=== PATIENT | male | born 1970 | race Caucasian/White ===

== ENCOUNTER 2019-08-05 14:08 | Outpatient (RCR) | payer OTHER, SELFPAY ==
--- NOTE | 2019-08-05 16:06 | OTOPEVAL ---
Thank you for referring this patient to [facility]. Please review, sign, date and return this plan of care [facility]. I agree with and certify that the following plan of care is medically necessary. Referring Physician Date Admitting Provider: Attending Provider: Melquiades Hauser, Referring Provider: *OT Outpatient Evaluation Start: 08/05/19 14:09 Freq: Status: Active Protocol: Document 08/05/19 14:09 [facility] (Rec: 08/05/19 15:03 [id number] Therapy Assessment Status Assessment Status Assessment Status Evaluation Outpatient Past Medical History Cardiovascular History Hx Cardiomyopathy Yes Gastrointestinal History Hx Gastroesophageal Reflux Disease Yes Musculoskeletal History Hx Other Musculoskeletal Disorders Yes: arthritis Evaluation Information Problem Diagnosis R thumb pain Onset 07/21/19 Subjective Information Patient reports a history of Query Text:As Reported By Patient/ carpal tunnel in the R hand. 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 Approximately 3 weeks ago, patient reports that a box fell on his extended thumb while working at [employer]. Patient reports that he has an orthosis for his R thumb that he wears intermittently as well as copper infused compression gloves. Patient reports that R thumb pain is impacting his ability to put clothes on, tie his shoes, taking a shower, opening containers, etc. Patient reports numbness in his L fingers as well. Patient reports the following throughout evaluation: I dont know how much more I can take . I have a lot of problems including some legal problems. I need a medical detox. Patient's dr is called and notified. Diagnostic Tests X-Rays For This Problem Yes Prior Level of Function Activity Level (Last 3 Months) Hand Dominance Ambidextrous Activity of Daily Living Ability Independent Indoor/Home Mobility Independent Community Mobility Independent
== END 2019-09-10 10:33 | disposition home or self-care (01) ==
LOC: CHSOT 14:08
PROVIDERS: PCP Internal Medicine; Visit Provider Internal Medicine
DX: M79.644 Pain in right finger(s) (principal)
CPT/HCPCS: 97035; 97110; 97140; 97165

== ENCOUNTER 2019-08-05 15:30 | Emergency (ER) | payer OTHER, SELFPAY ==
--- NOTE | 2019-08-05 15:44 | PC.NURSE ---
Pt requesting to go down to vending machines because he is hungry.
--- NOTE | 2019-08-05 15:58 | PC.NURSE ---
Pt had walked down to vending machines and has not yet returned.
[2019-08-05 16:09] VITALS: BP 108/79; PULSE 90; RESP 16; TEMP 36.3; O2SAT 100
[2019-08-05] MEDS: KETOROLAC (*BKC) 60 MG/2 ML VIAL IM (17:01)
--- NOTE | 2019-08-05 17:01 | ED.GENADULT ---
HPI - General Adult General Chief complaint: Nausea/Vomiting/Diarrhea Stated complaint: diarrhea Time Seen by Provider: 08/05/19 16:20 Source: patient Mode of arrival: ambulatory Limitations: no limitations History of Present Illness HPI narrative: Taye is a 48-year-old male patient. He presents ambulatory to the emergency room. He states that last Monday he had some nausea and vomiting. The last time he threw up was early Monday morning. He has not had any vomiting since then. He had Fedder 1 loose stool this morning. He has not been on any antibiotics recently. He has no history of recent travel. Another complaint is chronic pain in the right thumb for which he is receiving physical therapy. This is apparently a trigger thumb. Adalid has history of arthritis. He also says he has carpal tunnel in the left hand. He states that he has history of some heart problems and hypertension. Apparently he had been on metoprolol but not anymore. He has history of anxiety and depression. He has been hospitalized once for this problem. He states that that he has not been able to work since Monday and needs a note for work. His family physician is in [place] but he is trying to find a family physician locally. Adalid denies any abdominal pain. She denies any chest pain. He denies any shortness of breath at this time. No cough or fever. Onset (ago): day(s) ( Three days) Location: upper extremity ( chronic pain in right thumb, see HPI narrative.) Radiation: non-radiation Severity: moderate Quality: sharp Pain Consistency: intermittent Relieving factors: other ( Physical therapy helped some) Exacerbating factors: movement Associated symptoms: other ( please see HPI narrative) Treatments prior to arrival: none Related Data Home Medications Medication Instructions Recorded Confirmed baclofen 10 mg PO TID 08/05/19 08/05/19 gabapentin 300 mg PO TID 08/05/19 08/05/19 losartan 25 mg PO DAILY 08/05/19 08/05/19 metoprolol succinate 25 mg PO DAILY 08/05/19 08/05/19 pantoprazole 20 mg PO DAILY 08/05/19 08/05/19 spironolactone 25 mg PO EVERY OTHER DAY 08/05/19 08/05/19 Allergies Allergy/AdvReac Type Severity Reaction Status Date / Time Penicillins Allergy Unknown Unknown Verified 10/30/18 10:32 Review of Systems Review of Systems: All systems reviewed & are unremarkable except as noted in HPI and below Constitutional: Constitutional: Reports as per HPI, Reports no additional constitutional complaints, Denies chills and Denies fever(s) Eyes: Eyes: Reports as per HPI, Reports no additional eye complaints and Denies change in vision ENT: Reports system reviewed and no additional complaints, except as documented, Reports as per HPI, Denies vertigo, Denies dizziness, Denies nasal congestion and Denies sore throat Cardiovascular: Cardiovascular: Reports as per HPI, Reports no additional cardiovascular complaints, Denies chest pain and Denies radiating jaw, neck or arm pain Comments: see HPI narrative Respiratory: Respiratory: Reports as per HPI, Reports no additional respiratory complaints, Denies cough and Denies dyspnea Gastrointestinal: Gastrointestinal: Reports as per HPI, Reports no additional gastrointestinal complaints, Denies abdominal pain, Denies diarrhea and Denies vomiting Genitourinary: Genitourinary: Reports no additional male genitourinary complaints, Reports as per HPI, Denies hematuria and Denies dysuria Musculoskeletal: Musculoskeletal: Reports no additional musculoskeletal complaints and Reports as per HPI Comments: chronic pain right thumb for which he is undergoing physical therapy at this time Integumentary/Breasts: Skin/Breast: Reports system reviewed and no additional complaints, except as docu, Denies erythema and Denies rash Neurologic: Reports system reviewed and no additional complaints, except as documented, Denies vertigo, Denies dizziness, Denies syncope, Denies focal weakness, Denies numbness and De
== END 2019-08-05 17:34 | disposition home or self-care (01) ==
LOC: CHSED 15:38
PROVIDERS: Emergency Provider Surgery
DX: K52.9 Noninfective gastroenteritis and colitis, unspecified (principal); M79.644 Pain in right finger(s)
CPT/HCPCS: 96372; 99282; 99283; J1885

== ENCOUNTER 2019-08-15 16:48 | Emergency (ER) | payer OTHER, SELFPAY ==
[2019-08-15 16:57] VITALS: BP 108/67; PULSE 90; RESP 20; TEMP 36.7; O2SAT 100
--- NOTE | 2019-08-15 17:11 | ED.EXTPRO ---
HPI - Extremity Problem General Chief complaint: Extremity Problem,Nontraumatic Stated complaint: Pain in R Hand Source: patient Limitations: no limitations History of Present Illness HPI Narrative: this is a 49-year-old gentleman that presents with right thumb pain with no injuries has been going on for the last 2 weeks did hyper extend his his right thumb approximately 2 weeks ago did not take any medication. Currently has some mild discomfort that he rates about a 5/10 with no radiation of his pain. MD Complaint: extremity pain Onset (ago): week(s) Pain Consistency: intermittent Location: right and other ( Thumb) Severity scale (1-10): 5 Quality: aching Radiation: none Relieving factors: nothing Exacerbating factors: nothing Associated symptoms: denies other symptoms Related Data Home Medications Medication Instructions Recorded Confirmed baclofen 10 mg PO TID 08/05/19 08/15/19 gabapentin 300 mg PO TID 08/05/19 08/15/19 losartan 25 mg PO DAILY 08/05/19 08/15/19 metoprolol succinate 25 mg PO DAILY 08/05/19 08/15/19 pantoprazole 20 mg PO DAILY 08/05/19 08/15/19 spironolactone 25 mg PO EVERY OTHER DAY 08/05/19 08/15/19 Allergies Allergy/AdvReac Type Severity Reaction Status Date / Time Penicillins Allergy Unknown Unknown Verified 10/30/18 10:32 Review of Systems Review of Systems: All systems reviewed & are unremarkable except as noted in HPI and below PMFSH Past Medical History Medical History Anxiety Carpal tunnel syndrome Depression Femur fracture Femur fracture, right Hypertension Trigger thumb Social History Social History Years smoked: 30 Smoking status: Current every day smoker Substance use type: does not use Gender identity (if verbalized by the patient): Male Exam Const: General: no acute distress and alert Orientation/consciousness: patient oriented x3 HENMT: Head: normal to inspection Eyes: Conjunctivae: conjunctivae normal Pupils: Equal, round and reactive pupils present Neck: Neck: normal visual inspection Chest: Chest palpation & inspection: normal inspection of the chest Resp: Effort & Inspection: normal respiratory effort Cardio: Rate: regular rate Rhythm: regular rhythm GI: GI Palp: Yes Soft to palpation Back/Spine/Pelvis: Back: no CVA tenderness Skin: General skin exam: normal color Rashes: no rashes Extrem: Other: Right thumb tender with palpation and movement at the base with no redness no known injury has a strong right brisk radial pulse Course Vital Signs Vital signs: Vital Signs Temperature 36.7 C 08/15/19 16:57 Pulse Rate 90 08/15/19 16:57 Respiratory Rate 20 08/15/19 16:57 Blood Pressure 108/67 08/15/19 16:57 Pulse Oximetry 100 08/15/19 16:57 Temperature 36.7 C 08/15/19 16:57 Pulse Rate 90 08/15/19 16:57 Respiratory Rate 20 08/15/19 16:57 Blood Pressure 108/67 08/15/19 16:57 Pulse Oximetry 100 08/15/19 16:57 Critical Care Time Critical Care Time Critical Care Time: No Discharge Plan Discharge Clinical Impression: Osteoarthritis of right thumb Patient Disposition: Home, Self-Care Condition: Stable Instructions: Antibiotic Form, Osteoarthritis (ED) Prescriptions: New naproxen 500 mg tablet 500 mg PO BID Qty: 14 RF: 0 No Action spironolactone 25 mg tablet 25 mg PO EVERY OTHER DAY RF: 0 pantoprazole 20 mg tablet,delayed release (DR/EC) 20 mg PO DAILY RF: 0 baclofen 10 mg tablet 10 mg PO TID RF: 0 losartan 25 mg tablet 25 mg PO DAILY RF: 0 gabapentin 300 mg capsule 300 mg PO TID RF: 0 metoprolol succinate 25 mg tablet extended release 24 hr 25 mg PO DAILY RF: 0 Follow-up/Referrals: PHYSICIAN NOT ON STAFF,NONSTAFF [Primary Care Provider] - Time of Disposition: 17:15
[2019-08-15] MEDS: KETOROLAC (*BKC) 60 MG/2 ML VIAL IM (17:15)
[2019-08-15 17:25] VITALS: RESP 20
--- NOTE | 2019-08-15 17:25 | PC.NURSE ---
Pt states he will be coming into the ER once a week to get a Toradol injection to help with his pain. Explained to pt that he needed to contact his PMD for continued chronic R thumb and not to misuse ER.
== END 2019-08-15 17:25 | disposition home or self-care (01) ==
PROVIDERS: Emergency Provider Emergency Medicine
DX: M18.9 Osteoarthritis of first carpometacarpal joint, unspecified (principal)
CPT/HCPCS: 96372; 99283; J1885

== ENCOUNTER 2019-10-05 13:55 | Outpatient (CLI) | payer OTHER, SELFPAY ==
[2019-10-05 14:11] LABS: Hematocrit 46.8 % (42.0-52.0); Hemoglobin 15.9 g/dL (14.0-18.0); Mean Corpuscular Hemoglobin 31.5 pg (26-34); Mean Corpuscular Volume 92.7 fl (80-100); Mean Platelet Volume 9.3 fl (7.4-10.4); Platelet Count Result 194 k/mm3 (150-375); Red Blood Count 5.05 M/mm3 (4.6-6.20); White Blood Count 6.4 K/mm3 (4.5-10.0)
[2019-10-05 14:28] LABS: CRP < 0.5 mg/dL (<1.0); Rheumatoid Factor < 8.6 IU/ML (<12)
[2019-10-05 14:49] LABS: Erythrocyte Sedimentation Rate 13 mm/hr (0-20)
[2019-10-10 10:43] LABS: Anti Cyclic Citrullinated Pept <16 Units (<20)
== END 2019-10-05 13:56 | disposition home or self-care (01) ==
LOC: ANHLAB 13:57
PROVIDERS: Visit Provider Orthopaedic Surgery
DX: M79.641 Pain in right hand (principal)
CPT/HCPCS: 36415; 85027; 85652; 86038; 86140; 86200; 86430

== ENCOUNTER 2019-10-28 03:08 | Emergency (ER) | payer OTHER, SELFPAY ==
[2019-10-28 03:08] VITALS: BP 100/64; PULSE 86; RESP 18; TEMP 36.2; O2SAT 97
--- NOTE | 2019-10-28 04:12 | ED.EXTPRO ---
HPI - Extremity Problem General Source: patient Mode of arrival: ambulatory History of Present Illness HPI Narrative: 49 y.o. with hx of degenertive arthritis of his hands. Yesterday he began having a sharp pain and swelling at the base of his right dorsal 1st metacarpal. Icing the area resulted in the swelling resolving but moderate pain persists, becoming more severe when he moves the thumb, especially flexion and abduction. He has been working on his bicycle in the last few days. He states he first started having thumb pain about 6 months ago when he was carrying a heavy rock which rolled back, hyperextending his thumb. He saw a hand surgeon about 3 weeks ago. At that time his pain was in the thenar eminence. An X ray of the hand was done at that time. Taye states he was told to continue taking Baclofen and gabapentin. Taking several extra gabapentin's today hasn't helped. He has an appointment for a nerve conduction study on November 11. In July he was seen by Dr. Dunn who prescribed naproxen. Taye states it really helped with his pain but he ran out. Taye has a hx of GERD controlled with weight control. He takes pantoprazole. He avoids ibuprofen because he's concerned he'll get a bleeding ulcer - which he's never had. Related Data Home Medications Medication Instructions Recorded Confirmed baclofen 10 mg PO TID 08/05/19 10/28/19 gabapentin 300 mg PO TID 08/05/19 10/28/19 losartan 25 mg PO DAILY 08/05/19 10/28/19 metoprolol succinate 25 mg PO DAILY 08/05/19 10/28/19 pantoprazole 20 mg PO DAILY 08/05/19 10/28/19 spironolactone 25 mg PO EVERY OTHER DAY 08/05/19 10/28/19 Allergies Allergy/AdvReac Type Severity Reaction Status Date / Time Penicillins Allergy Unknown Unknown Verified 10/30/18 10:32 Review of Systems ENT: Reports sore throat Respiratory: Respiratory: Reports cough and Reports dyspnea Gastrointestinal: Gastrointestinal: Reports abdominal pain Musculoskeletal: Musculoskeletal: Reports no additional musculoskeletal complaints Integumentary/Breasts: Skin/Breast: Reports rash PMFSH Past Medical History Medical History (Updated 10/28/19 @ 04:59 by Johnnie Torres MD) Anxiety Aortic valve disease Carpal tunnel syndrome CHF (congestive heart failure) Depression Femur fracture Femur fracture, right Hypertension Opioid abuse Trigger thumb Social History Social History Years smoked: 30 Smoking status: Current every day smoker Substance use type: does not use Gender identity (if verbalized by the patient): Male Exam Const: General: no acute distress Orientation/consciousness: patient oriented x3 Extrem: General: normal to inspection Right upper extremity: Extremity exam: right hand (Tender at 1st m.t.- trapezium articulation. No redness or swelling. ) normal capillary refill, tenderness (over dorsal hand, base of R 1st metacarpal-trapezium articulation), no swelling, abrasion (~ 5 mm abrasion over proximal, dorsal medial hand) and other (no snuff box tenderness. ); no ecchymosis and no crepitus Course Course Emergency Course: Pt. was given Toradol 60 mg IM and d.c. with rx. for naproxen. I called pt to find out if he had a MRI after he hyperextended his thumb in Mar 2019, which he has not. I strongly recommended f/u with PCP or hand surgeon to obtain a MRI to find out if he tore ligaments resulting in his pain. Pt. mentioned he was being followed by cardiology because he has an ejection fraction of 15% because of an aortic valve problem. Pt advised not to take naproxen, ibuprofen or any NSAID. 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 sent to pharmacy. Pt. understands and will only take Baclofen and gabapentin. [facility] in [place] contacted. Voice mail left with pharmacy to cancel prescription for Naproxen. Vital Signs Vital signs: Vital Signs Temperature 36.2 C L 10/28/19 03:08 Pulse Rate 86 10/28/19 03:08 Respiratory Rat
[2019-10-28] MEDS: KETOROLAC (*BKC) 60 MG/2 ML VIAL IM (04:13)
== END 2019-10-28 04:19 | disposition home or self-care (01) ==
PROVIDERS: Emergency Provider Family Medicine
DX: M25.541 Pain in joints of right hand (principal); I11.0 Hypertensive heart disease with heart failure; I50.9 Heart failure, unspecified; I35.8 Other nonrheumatic aortic valve disorders; F32.9 Major depressive disorder, single episode, unspecified; F41.9 Anxiety disorder, unspecified; F17.200 Nicotine dependence, unspecified, uncomplicated
CPT/HCPCS: 96372; 99281; 99283; J1885

== ENCOUNTER 2019-11-04 13:18 | Observation (INO) | payer OTHER, SELFPAY ==
[2019-11-04] VITALS (7 sets, daily range): BP systolic 92–115; BP diastolic 64–79; PULSE 73–86; RESP 11–20; TEMP 36.2–36.8; O2SAT 92–100; BMI 24.4
--- NOTE | ~2019-11-04 | XR_ITS ---
EXAMINATION: XR foot RT min 3V DATE: 11/04/2019 14:03 INDICATION: Pain, swelling and bruising at the right second toe post injury TECHNIQUE: Dorsoplantar, two oblique and lateral views of the right foot were obtained. COMPARISON: None. FINDINGS: Minimally displaced intra-articular fracture at the base of the right second proximal phalanx. There is <1 mm fracture gap and incongruity at the articular surface. There are small chronic appearing oss icles with irregular margins associated with juxta articular erosions with sclerotic margins and over hanging edges at the palmar/medial bases of the first and second proximal phalanges and at the medial head of the first proximal phalanx. Joint spaces appear relatively preserved. Small Achilles calcane al spur. IMPRESSION: 1. Minimally displaced intra-articular fracture at the base of the right second proximal phalanx. 2. Chronic erosions at the base of the first and second proximal phalanges and at the head of the fir st proximal phalanx with appearance suggestive of gout. Reviewed, dictated and finalized at location A. IMPRESSION: 1. Minimally displaced intra-articular fracture at the base of the right second proximal phalanx. 2. Chronic erosions at the base of the first and second proximal phalanges and at the head of the first proximal phalanx with appearance suggestive of gout.
--- NOTE | ~2019-11-04 | XR_ITS ---
EXAMINATION: XR chest 1V portable 11/04/2019 14:03 INDICATION: Chest palpitations PROCEDURE: AP portable chest COMPARISON: 08/08/2018 FINDINGS: The lungs are clear. Cardiomegaly. There are no pleural effusions. There is no pneumothora x suspected. There surgical changes consistent with left clavicular osteotomy. IMPRESSION: 1: NO ACUTE CARDIOPULMONARY DISEASE. Reviewed, dictated and finalized at location A.
--- NOTE | 2019-11-04 13:34 | ECG_ITS ---
Measurements Intervals [place] Rate: 76 P: 7 NM: 152 QRS: -68 QRSD: 181 T: 99 QT: 457 QTc: 514 Interpretive Statements SINUS RHYTHM LEFT AXIS DEVIATION LEFT BUNDLE BRANCH BLOCK ABNORMAL ECG Electronically Signed On 11-04-2019 14:03:24 CDT by Coleman Talbot D.O.
--- NOTE | 2019-11-04 13:34 | ED.GENADULT ---
HPI - General Adult General Chief complaint: Chest Pain Stated complaint: CP History of Present Illness HPI narrative: Patient is a 49 y/o male complaining of heart racing, chest pain, dizziness and SOB start about 30 minutes ago. He states that he just checked out a hotel and was moving his things when this happened. He feels dehydrated. He states that his palpitation is moderate and there is no alleviating or exacerbating factor. He denies any fever. He has intermittent mild cough. He also complains of injuring right 2nd toe 2 days ago, however, he did not seek medical attention when his injury occured. Related Data Home Medications Medication Instructions Recorded Confirmed baclofen 10 mg PO TID 08/05/19 11/04/19 gabapentin 300 mg PO TID 08/05/19 11/04/19 spironolactone 12.5 mg PO DAILY 08/05/19 11/04/19 furosemide 20 mg PO DAILY 11/04/19 11/04/19 omeprazole 20 mg PO TIDWM 11/04/19 11/04/19 Allergies Allergy/AdvReac Type Severity Reaction Status Date / Time Penicillins Allergy Unknown Unknown Verified 11/04/19 13:50 Review of Systems Constitutional: Constitutional: Denies chills, Denies fever(s), Denies headache(s) and Denies weakness Eyes: Eyes: Denies blurry vision ENT: Denies headache(s) and Denies neck pain Cardiovascular: Cardiovascular: Reports as per HPI, Reports chest pain, Reports rapid heart rate and Denies dyspnea Respiratory: Respiratory: Denies cough and Reports dyspnea Gastrointestinal: Gastrointestinal: Denies abdominal pain, Denies diarrhea, Denies nausea and Denies vomiting Genitourinary: Genitourinary: Denies hematuria and Denies dysuria Musculoskeletal: Musculoskeletal: Denies back pain, Denies neck pain and Reports other (right toe pain) Neurologic: Reports dizziness, Denies headache(s) and Denies weakness [facility] Past Medical History Medical History Anxiety Aortic valve disease Carpal tunnel syndrome CHF (congestive heart failure) Depression Femur fracture Femur fracture, right Hypertension Opioid abuse Trigger thumb Family History Family History Mother Anxiety Osteoporosis Father Cerebrovascular accident Sibling Heart problem Diabetes mellitus Social History Social History Years smoked: 30 Smoking status: Current every day smoker Tobacco type: cigarettes Alcohol intake: current Drinks per week: 3 Substance use: current Substance use type: marijuana and methamphetamine Gender identity (if verbalized by the patient): Male Spiritual care concerns: No Exam Const: General: no acute distress and well developed Orientation/consciousness: oriented to person, oriented to place, oriented to time and patient oriented x3 HENMT: Head: normocephalic Ears: external ears normal General nose exam: Normal external nose present Eyes: General: appearance normal, both eyes and all related structures Conjunctivae: conjunctivae normal Neck: Neck: normal visual inspection and full ROM Chest: Chest palpation & inspection: normal inspection of the chest and no tenderness Resp: Effort & Inspection: normal respiratory effort Auscultation: clear to auscultation bilaterally Cardio: Rate: regular rate Rhythm: regular rhythm GI: GI Palp: No abdominal tenderness and Yes Soft to palpation Skin: General skin exam: normal color and turgor normal Neuro: General: oriented to person, oriented to place, oriented to time and patient oriented x3 Cognition (Neuro): normal cognition Extrem: General: normal to inspection, full ROM and no pedal edema Left lower extremity: foot (right 2nd toe bruise, tenderness) Psych: Appearance: grossly normal Mental Status: mental status grossly normal Affect: normal affect Course Consultations Consultation #1: Discussed with Dr. Damian, who recommends admit to hospitalist
[2019-11-04 13:49] LABS: Basophils Percent Auto 0.4 % (0.2-1.2); Eosinophils Absolute Auto 0.2 K/mm3 (0-0.3); Eosinophils Percent Auto 2.4 % (0-4.4); Hemoglobin 14.8 g/dL (14.0-18.0); Immature Granulocyte Absolute 0.02 K/mm3 (0.00-0.031); Immature Granulocyte Percent A 0.3 % (0-0.5); Lymphocytes Absolute Auto 1.44 K/mm3 (0.9-3.2); Lymphocytes Percent Auto 20.7 % (18.3-44.2); Mean Corpuscular HGB Conc 34.4 g/dl (32-36); Mean Corpuscular Hemoglobin 31.4 pg (26-34); Mean Corpuscular Volume 91.1 fl (80-100); Mean Platelet Volume 9.4 fl (7.4-10.4); Monocytes Absolute Auto 0.5 K/mm3 (0.1-0.6); Monocytes Percent Auto 7.2 % (2.6-8.5); Neutrophils Absolute Auto 4.8 K/mm3 (1.3-6.7); Platelet Count Result 161 k/mm3 (150-375); Red Blood Count 4.72 M/mm3 (4.6-6.20); Red Cell Distribution Width 12.4 % (11.5-14.5)
[2019-11-04 14:08] LABS: Alanine Aminotransferase 21 U/L (4-50); Albumin Level 3.8 g/dL (3.5-5.1); Alkaline Phosphatase 87 U/L (38-126); Aspartate Amino Transferase 32 U/L (17-59); Bilirubin,Total 0.6 mg/dL (0.2-1.3); Blood Urea Nitrogen 26 mg/dL (9-20); Calcium 8.8 mg/dL (8.4-10.2); Carbon Dioxide 23 mmol/L (22-30); Chloride 104 mmol/L (98-107); Estimated CRCL calculation 71 ml/min; Estimated Glomerular Filt Rate > 60; Glucose 112 mg/dL (75-110); Potassium 4.2 mmol/L (3.4-5.0); Sodium 134 mmol/L (137-145)
[2019-11-04 14:56] LABS: NT Pro B Type Natriuretic Pept 1830 PG/ML (5-100)
[2019-11-04 17:17] LABS: Troponin I 0.032 ng/mL (0.000-0.034)
[2019-11-04] MEDS: FUROSEMIDE INJ 40 MG/4 ML VIAL IV PUSH (18:42)
[2019-11-04 20:37] LABS: Troponin I 0.037 ng/mL (0.000-0.034)
--- NOTE | 2019-11-04 22:01 | ADMGEN ---
This patient, Taye Whitaker, was admitted to IMU Room 214-01 FROM ER 11/04/192149. Patient/family oriented to hospital policies and general routines including ID bracelet, bed and alarms, visiting hours, pain management, procedures, bathroom and other care routines, personal items, smoking policy, room service/diet, and visiting hours. Valuables list has been completed. Information on how to activate the Rapid Response Team has been discussed. Patient/Family are encouraged to report perceived risks to care and to ask questions if they do not understand what they are told or what they should do.
--- NOTE | 2019-11-04 23:53 | PM.IMHP ---
H&P: HPI History of Present Illness Chief complaint: chest pain, palpitation Narrative: This is a pleasant 49 year old male with known systolic heart failure and a low EF of 10-15% who admits that he chronically abuses methamphetamine and presented to the hospital with a complaint of midchest discomfort and palpitations today. Associated symptoms included anxiety and dizziness. He relates that he is homeless and under a great deal of stress. He has a court date coming up and believes he may end up going to [facility]. The patient smokes about 1/2 pack of cigarettes every few days. Tonight the patient was evaluated in the ER and his initial troponin was negative. EKG demonstrated LBBB pattern and does not meet Sgarbossa criteria for acute KS. The patient relates to me that he has been trying to get into rehab for his drug addiction. He currently denies any pain, fevers, shortness of breath, dysuria, hematuria, diarrhea, rectal bleeding or LE swelling. Cardiology has been consulted by ER provider and has asked that we admit the patient to the hospital for cardiac rule out. No other complaints. Review of Systems Review of Systems: All systems reviewed & are unremarkable except as noted in HPI and below PMFSH Past Medical History Medical History Anxiety Aortic valve disease Carpal tunnel syndrome CHF (congestive heart failure) Depression Femur fracture Femur fracture, right Hypertension Opioid abuse Trigger thumb Family History Family History Mother Anxiety Osteoporosis Father Cerebrovascular accident Sibling Heart problem Diabetes mellitus Social History Social History Years smoked: 30 Smoking status: Current every day smoker Tobacco type: cigarettes Alcohol intake: current Drinks per week: 3 Substance use: current Substance use type: marijuana and methamphetamine Gender identity (if verbalized by the patient): Male Spiritual care concerns: No Comments Surgical history is reviewed and noncontributory. Meds Home Medications and Allergies Home Medications Medication Instructions Recorded Confirmed Type baclofen 10 mg PO TID 08/05/19 11/04/19 History gabapentin 300 mg PO TID 08/05/19 11/04/19 History spironolactone 12.5 mg PO DAILY 08/05/19 11/04/19 History furosemide 20 mg PO DAILY 11/04/19 11/04/19 History omeprazole 20 mg PO TIDWM 11/04/19 11/04/19 History carvedilol 3.125 mg PO BID #60 tablet 11/05/19 Rx Allergies Allergy/AdvReac Type Severity Reaction Status Date / Time Penicillins Allergy Unknown Unknown Verified 11/04/19 13:50 Vital Signs Vital Signs - 24 hr 11/04/19 13:18 11/04/19 17:30 11/04/19 18:26 Temperature 36.6 C 36.2 C L Pulse Rate 74 76 79 Respiratory Rate 11 L 18 16 Blood Pressure 92/64 L 106/73 105/79 Pulse Oximetry 100 100 99 11/04/19 21:16 11/04/19 22:00 11/04/19 22:06 Temperature 36.8 C 36.6 C Pulse Rate 75 73 86 Respiratory Rate 18 20 Blood Pressure 103/76 115/71 Pulse Oximetry 100 92 11/04/19 23:30 Temperature Pulse Rate 77 Respiratory Rate Blood Pressure Pulse Oximetry Exam Const: General: cooperative, no acute distress, alert and awake Nutritional Appearance: well nourished Orientation/consciousness: patient oriented x3 HENMT: Head: normal to inspection General nose exam: Normal external nose present Face and sinus: normal facial exam Mouth: Yes Normal oral and palatal mucosa present and Yes oropharynx normal Eyes: Pupils: Equal, round and reactive pupils present EOM: EOMs intact bilaterally Neck: Neck: supple and no JVD Thyroid: thyroid normal Lymphatic: lymphadenopathy not noted Resp: Effort & Inspection: normal respiratory effort Auscultation: clear to auscultation bilaterally Cardio: Rate: regular rate Rhythm: regular rhythm Heart sounds:
[2019-11-05] VITALS (11 sets, daily range): BP systolic 93–102; BP diastolic 62–70; PULSE 71–80; RESP 18–20; TEMP 35.8–36.7; O2SAT 98–100; BMI 24.4
[2019-11-05] MEDS: ASPIRIN 81 MG CHEWABLE TABLET 324 MG PO (00:08)
[2019-11-05 00:55] LABS: Troponin I 0.041 ng/mL (0.000-0.034)
[2019-11-05 05:07] LABS: Basophils Percent Auto 0.3 % (0.2-1.2); Eosinophils Absolute Auto 0.2 K/mm3 (0-0.3); Eosinophils Percent Auto 3.6 % (0-4.4); Hematocrit 46.1 % (42.0-52.0); Hemoglobin 15.7 g/dL (14.0-18.0); Immature Granulocyte Absolute 0.02 K/mm3 (0.00-0.031); Immature Granulocyte Percent A 0.3 % (0-0.5); Lymphocytes Percent Auto 28.1 % (18.3-44.2); Mean Corpuscular HGB Conc 34.1 g/dl (32-36); Mean Corpuscular Hemoglobin 31.1 pg (26-34); Mean Corpuscular Volume 91.3 fl (80-100); Mean Platelet Volume 9.4 fl (7.4-10.4); Monocytes Absolute Auto 0.6 K/mm3 (0.1-0.6); Monocytes Percent Auto 9.2 % (2.6-8.5); Neutrophils Absolute Auto 3.8 K/mm3 (1.3-6.7); Neutrophils Percent Auto 58.5 % (45.5-73.1); Platelet Count Result 180 k/mm3 (150-375); Red Blood Count 5.05 M/mm3 (4.6-6.20); Red Cell Distribution Width 12.7 % (11.5-14.5); White Blood Count 6.4 K/mm3 (4.5-10.0)
[2019-11-05 05:19] LABS: Blood Urea Nitrogen 23 mg/dL (9-20); Calcium 8.9 mg/dL (8.4-10.2); Carbon Dioxide 28 mmol/L (22-30); Chloride 105 mmol/L (98-107); Cholesterol 164 mg/dL (0-200); Estimated CRCL calculation 65 ml/min; Estimated Glomerular Filt Rate > 60; Glucose 116 mg/dL (75-110); HDL Direct 57 mg/dL; Potassium 3.9 mmol/L (3.4-5.0); Sodium 137 mmol/L (137-145); Triglycerides 71 mg/dL (<150)
[2019-11-05 05:30] LABS: LDL Cholesterol Direct 88 mg/dL
[2019-11-05] MEDS: FUROSEMIDE 20 MG TABLET PO (08:39)
[2019-11-05] MEDS: GABAPENTIN 300 MG CAPSULE PO ×2 (08:39→12:18)
[2019-11-05] MEDS: carvediloL 6.25 MG TABLET PO (08:39)
[2019-11-05] MEDS: SPIRONOLACTONE 12.5 MG TABLET PO (08:39)
[2019-11-05] MEDS: BACLOFEN 10 MG TABLET PO ×2 (08:40→12:18)
[2019-11-05] MEDS: PANTOPRAZOLE SOD SESQUIHYDRATE 20 MG TAB PO ×2 (08:40→12:18)
--- NOTE | 2019-11-05 09:12 | PM.CNCAR ---
Assessment and Plan Assessment and plan (1) Non-ischemic cardiomyopathy: Code(s): I42.8 - Other cardiomyopathies Status: Acute Assessment and Plan: 49 y/o with NICM who presents with dizziness and palpitations in the setting of polysubstance abuse DIzziness happened in the setting of being out in the warm weather after missing his medications. 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 Patient had recent echo 2 weeks ago with EF 15%. He had Nuc stress within the last year with no ischemia as well as LHC in the past with no CAD consistent with NICM. He is scheduled for BIV ICD/Pacer in 2 weeks. Would hold off repeating any cardiac work up at this point Patient instructed to hold lasix if he has poor oral intake or exposed to warm weather Will decrease Coreg dose to 3.125 BID. COntinue current dose of Losartan 25 daily and spironolactone 12.5 daily Continue LifeVest (2) Dizziness: Code(s): R42 - Dizziness and giddiness Status: Acute Assessment and Plan: Plan as outlined above (3) Elevated troponin: Code(s): R79.89 - Other specified abnormal findings of blood chemistry Status: Acute Assessment and Plan: No chest pain. EKG with LBBB which is old. Trop elevation is likely due to type II PA from increase demand related to coronary spasm with active cocaine abuse Per my discussion with pt double end chucking machine operator at [facility] heart [facility] vascular, patient had negative stress test and prior normal cath. Would hold off repeating ischemic evaluation at this point (4) Methamphetamine abuse: Code(s): F15.10 - Other stimulant abuse, uncomplicated Status: Acute Assessment and Plan: Social work consult History of Present Illness History of Present Illness Consult date/time: 11/05/19 09:12 49 y/o male with h/o poly substance abuse and NICM EF 15% scheduled followed by [facility] heart and vascular (Dr Villafana) scheduled for BiV ICD/pacemaker later this month who presented with palpitations and dizziness. Patient recently became homeless. He reprots that yesterday morning he did not take his medications and he was out in the warm weather accompanied by police while trying to retrieve his belongings from his mother place where he used to stay when felt his heart was racing then became dizzy so ambulance was called. He denies chest pain or dyspnea. He feels back to normal now. He is actively doing methamphetamines most recently yesterday and he also did cocaine on Monday. Work up revealed indeterminate trop elevation at 0.04. EKG showed LBBB which is old. He saw his double end chucking machine operator 2 weeks ago and had Echo showing EF 15% with moderate MR. He had Nuc stress test in Dec with no ischemia He is supposed to have lifevest on but he is not wearing i. He smokes, drinks and do drugs. Reason For Visit: chest pain, palpitation Review of Systems Review of Systems: All systems reviewed & are unremarkable except as noted in HPI and below Constitutional: Constitutional: Denies fatigue and Denies headache(s) Eyes: Eyes: Denies blurry vision ENT: Reports Normal hearing present and Denies headache(s) Cardiovascular: Cardiovascular: Denies chest pain, Denies diaphoresis, Denies pedal edema, Denies leg edema, Denies lightheadedness, Denies palpitations and Denies dyspnea Respiratory: Respiratory: Denies cough and Denies dyspnea Gastrointestinal: Gastrointestinal: Denies abdominal pain Musculoskeletal: Musculoskeletal: Denies back pain Neurologic: Reports Normal hearing present and Denies headache(s) Psychiatric: Psychiatric: Denies anxiety Endocrine: Endocrine: Denies fatigue and Denies palpitations PMFSH Past Medical History Medical History Anxiety Aortic valve disease Carpal jhony
--- NOTE | 2019-11-05 13:10 | PM.DS ---
DS: Admitting Diagnosis Admitting Diagnosis Admitting Diagnosis: Other cardiomyopathies DS: Discharge Diagnosis Discharge Diagnosis (1) Heart palpitations: Code(s): R00.2 - Palpitations Status: Acute Assessment and Plan: Likely secondary to methamphetamine abuse. Currently resolved. Admit for observation. Trend troponin. Continue telemetry. Monitor for arhythmias. Cardiology has been consulted by ER provider. (2) CHF (congestive heart failure): Qualifiers: Heart failure chronicity: unspecified Heart failure type: unspecified Qualified Code(s): I50.9 - Heart failure, unspecified Code(s): I50.9 - Heart failure, unspecified Status: Acute Assessment and Plan: The patient does not appear to be in any acute heart failure at this time. Monitor fluid status. Is and Os, daily weights. Continue home diuretics. (3) Methamphetamine abuse: Code(s): F15.10 - Other stimulant abuse, uncomplicated Status: Acute Assessment and Plan: I have counseled the patient regarding methamphetamine abuse. He wants to get enrolled into rehab. (4) Elevated troponin: Code(s): R79.89 - Other specified abnormal findings of blood chemistry Status: Acute Assessment and Plan: Likely secondary to methamphetamine abuse. Trend troponin. DS: Summary Hospital Course Reason for hospitalization: This is a pleasant 49 year old male with known systolic heart failure and a low EF of 10-15% who admits that he chronically abuses methamphetamine and presented to the hospital with a complaint of midchest discomfort and palpitations today. Associated symptoms included anxiety and dizziness. He relates that he is homeless and under a great deal of stress. He has a court date coming up and believes he may end up going to alf. The patient smokes about 1/2 pack of cigarettes every few days. Tonight the patient was evaluated in the ER and his initial troponin was negative. EKG demonstrated LBBB pattern and does not meet Sgarbossa criteria for acute CT. The patient relates to me that he has been trying to get into rehab for his drug addiction. He currently denies any pain, fevers, shortness of breath, dysuria, hematuria, diarrhea, rectal bleeding or LE swelling. Cardiology has been consulted by ER provider and has asked that we admit the patient to the hospital for cardiac rule out. No other complaints. Hospital Course: Patient with history methamphetamine abuse, presented with chest pain patient is seen by demonstrator knitting patient's symptoms have improved his clinically stable patient does not have any complaint of chest pain shortness of breath palpitation fever or chills at the currently, cardiac recommended patient can be discharged home to follow-up with his demonstrator knitting as patient has a poor ejection fraction as soon as possible Time Spent with Patient Time attestation: Total time spent providing and/or coordinating discharge services: Exam Const: General: comfortable and no acute distress HENMT: General nose exam: Normal nares present Eyes: General: appearance normal, both eyes and all related structures Sclera: sclerae normal Neck: Neck: supple Resp: Effort & Inspection: normal respiratory effort Auscultation: clear to auscultation bilaterally Cardio: Rate: regular rate Rhythm: regular rhythm GI: GI Palp: Yes Soft to palpation Auscultation: normal bowel sounds Skin: General skin exam: normal color Neuro: Sensory Exam: normal sensation Extrem: General: normal to inspection Psych: Affect: Anxious affect present DS: Data Data Completed and Pending Labs on day of discharge: Labs from last 24 hours 11/05/19 11/05/19 11/05/19 04:46 04:46 00:07 WBC 6.4 RBC 5.05 Hgb 15.7 Hct 46.1 MCV 91.3 MCH 31.1 MCHC 34.1 RDW 12.7 Plt Count 180 MPV 9.4 Immature Gran % (Auto) 0.3 Neut % (Auto) 58.5 Lymph % (Auto) 28.1 [place] %
== END 2019-11-05 16:00 | disposition home or self-care (01) ==
LOC: ANHED 20:51 → ANHIMU 21:46
PROVIDERS: Admitting Provider Family Medicine; Emergency Provider Emergency Medicine; Visit Provider Family Medicine
DX: I42.8 Other cardiomyopathies (principal); I50.9 Heart failure, unspecified; R07.9 Chest pain, unspecified; R42 Dizziness and giddiness; F17.210 Nicotine dependence, cigarettes, uncomplicated; F12.90 Cannabis use, unspecified, uncomplicated; F15.10 Other stimulant abuse, uncomplicated
CPT/HCPCS: 36415; 71045; 73630; 80048; 80053; 80061; 83880; 84484; 85025; 93005; 96374; 99285; A9270; G0378; G0379; J1940

== ENCOUNTER 2020-01-01 16:12 | Emergency (ER) | payer OTHER, SELFPAY ==
--- NOTE | ~2020-01-01 | CT_ITS ---
EXAMINATION: CT brain wo con EXAM DATE: 01/01/2020 17:58 INDICATION: Unresponsive. TECHNIQUE: Spiral CT of the head was performed without contrast. Axial, coronal and sagittal images were reviewed. The dose-length product (DLP) for this examination was 605.33 mGy-cm. The exposure w as tailored according to patient size, and iterative reconstruction (ASIR) was used as additional dos e reduction technique. There is no prior study for comparison. FINDINGS: There is no acute intraparenchymal hemorrhage. No evidence of intraparenchymal brain mass lesion. No evidence of acute infarction. There is no mass effect or midline shift. The ventricles are normal in size. There are no extra-axial collections. There are no acute calvarial fractures. T he orbits are unremarkable. Soft tissue is unremarkable. The visualized sinuses and mastoid air eloise ls are well aerated. IMPRESSION: 1. Unremarkable head CT examination. Reviewed, dictated and finalized at location A.
--- NOTE | ~2020-01-01 | XR_ITS ---
EXAMINATION: XR chest 1V portable EXAM DATE: 01/01/2020 18:38 INDICATION: Syncope. History of cardiomyopathy. TECHNIQUE: Portable AP frontal chest x-ray was obtained. Comparison is made to prior examination from 11/04/2019. FINDINGS: The lungs are clear. There are no pleural effusions. Cardiac silhouette is enlarged but s table in size compared to prior exam. There is no pneumothorax suspected. The bones and soft tissu es are unremarkable. IMPRESSION: Mild cardiomegaly. Reviewed, dictated and finalized at location A. IMPRESSION: Mild cardiomegaly.
[2020-01-01 16:20] VITALS: BP 116/83; PULSE 91; RESP 18; TEMP 36.8; O2SAT 97
--- NOTE | 2020-01-01 16:31 | ECG_ITS ---
Measurements Intervals [place] Rate: 81 P: 52 [place]: 162 QRS: -64 QRSD: 177 T: 95 QT: 434 QTc: 506 Interpretive Statements SINUS RHYTHM LEFT ATRIAL ENLARGEMENT LEFT AXIS DEVIATION LEFT BUNDLE BRANCH BLOCK ABNORMAL ECG Electronically Signed On 01-01-2020 17:55:32 CDT by Coleman Talbot D.O.
[2020-01-01 16:58] LABS: Basophils Percent Auto 0.3 % (0.2-1.2); Eosinophils Absolute Auto 0.3 K/mm3 (0-0.3); Eosinophils Percent Auto 4.1 % (0-4.4); Hematocrit 41.3 % (42.0-52.0); Hemoglobin 14.1 g/dL (14.0-18.0); Immature Granulocyte Absolute 0.01 K/mm3 (0.00-0.031); Immature Granulocyte Percent A 0.1 % (0-0.5); Lymphocytes Absolute Auto 1.55 K/mm3 (0.9-3.2); Lymphocytes Percent Auto 22.7 % (18.3-44.2); Mean Corpuscular HGB Conc 34.1 g/dl (32-36); Mean Corpuscular Hemoglobin 31.3 pg (26-34); Mean Corpuscular Volume 91.6 fl (80-100); Mean Platelet Volume 9.3 fl (7.4-10.4); Monocytes Absolute Auto 0.6 K/mm3 (0.1-0.6); Monocytes Percent Auto 8.5 % (2.6-8.5); Neutrophils Absolute Auto 4.4 K/mm3 (1.3-6.7); Neutrophils Percent Auto 64.3 % (45.5-73.1); Platelet Count Result 182 k/mm3 (150-375); Red Blood Count 4.51 M/mm3 (4.6-6.20); White Blood Count 6.8 K/mm3 (4.5-10.0)
[2020-01-01 17:11] LABS: Anion Gap 8.4 mmol/L (7-16); Blood Urea Nitrogen 24 mg/dL (9-20); Carbon Dioxide 28 mmol/L (22-30); Chloride 104 mmol/L (98-107); Estimated CRCL calculation 71 ml/min; Estimated Glomerular Filt Rate > 60; Glucose 103 mg/dL (75-110); Potassium 4.4 mmol/L (3.4-5.0); Sodium 136 mmol/L (137-145)
--- NOTE | 2020-01-01 17:22 | ED.GENADULT ---
HPI - General Adult General Chief complaint: Syncope Stated complaint: SOB Time Seen by Provider: 01/01/20 16:18 Source: patient History of Present Illness HPI narrative: Patient is a 49 y/o male brought in by EMS for unresponsiveness episode. He was reportedly arrested earlier and he was noted to be unresponsive in the back of squad car. It's uncertain how long he was unresponsive. EMS was called by police and he was responsive when EMS arrived. He complains of some mild abdominal pain and feels hungry. He denies any chest pain or SOB. Related Data Home Medications Medication Instructions Recorded Confirmed baclofen 10 mg PO TID 08/05/19 11/04/19 gabapentin 300 mg PO TID 08/05/19 11/04/19 spironolactone 12.5 mg PO DAILY 08/05/19 11/04/19 furosemide 20 mg PO DAILY 11/04/19 11/04/19 omeprazole 20 mg PO TIDWM 11/04/19 11/04/19 Allergies Allergy/AdvReac Type Severity Reaction Status Date / Time Penicillins Allergy Unknown Unknown Verified 01/01/20 16:29 Review of Systems Constitutional: Constitutional: Denies chills, Denies fever(s), Denies headache(s) and Denies weakness Eyes: Eyes: Denies blurry vision ENT: Denies headache(s) and Denies neck pain Cardiovascular: Cardiovascular: Denies chest pain and Denies dyspnea Respiratory: Respiratory: Denies cough and Denies dyspnea Gastrointestinal: Gastrointestinal: Reports abdominal pain, Denies diarrhea, Denies nausea and Denies vomiting Genitourinary: Genitourinary: Denies hematuria and Denies dysuria Musculoskeletal: Musculoskeletal: Denies back pain and Denies neck pain Neurologic: Reports as per HPI, Reports syncope, Denies headache(s) and Denies weakness [facility] Past Medical History Medical History Anxiety Aortic valve disease Carpal tunnel syndrome CHF (congestive heart failure) Depression Femur fracture Femur fracture, right Hypertension Opioid abuse Trigger thumb Family History Family History Mother Anxiety Osteoporosis Father Cerebrovascular accident Sibling Heart problem Diabetes mellitus Social History Social History Years smoked: 30 Smoking status: Current every day smoker Tobacco type: cigarettes Alcohol intake: current Drinks per week: 3 Substance use: current Substance use type: marijuana and methamphetamine Gender identity (if verbalized by the patient): Male Spiritual care concerns: No Exam Const: General: no acute distress and well developed Orientation/consciousness: oriented to person, oriented to place, oriented to time and patient oriented x3 HENMT: Head: normocephalic Ears: external ears normal General nose exam: Normal external nose present Eyes: General: appearance normal, both eyes and all related structures Conjunctivae: conjunctivae normal Neck: Neck: normal visual inspection and full ROM Chest: Chest palpation & inspection: normal inspection of the chest and no tenderness Resp: Effort & Inspection: normal respiratory effort Auscultation: clear to auscultation bilaterally Cardio: Rate: regular rate Rhythm: regular rhythm GI: GI Palp: No abdominal tenderness and Yes Soft to palpation Skin: General skin exam: normal color and turgor normal Neuro: General: oriented to person, oriented to place, oriented to time and patient oriented x3 Cranial nerves: Yes CN's II-XII intact bilaterally Cognition (Neuro): normal cognition Speech: normal speech Motor exam (neuro): 5/5 motor strength present throughout Sensory Exam: normal sensation Coordination: [id number] test normal and [id number] test normal Extrem: General: normal to inspection, full ROM and no pedal edema Psych: Appearance: grossly normal Mental Status: mental status grossly normal Affect: normal affect Course Vital Signs Vital signs: Vital Signs Temperature 3
[2020-01-01 18:15] LABS: NT Pro B Type Natriuretic Pept 3610 PG/ML (5-100); Troponin I 0.019 ng/mL (0.000-0.034)
[2020-01-01 19:02] VITALS: BP 128/80; PULSE 88; RESP 18; O2SAT 98
[2020-01-01 20:06] LABS: Add Urine Microscopic? YES; Appearance Urine Clear (Clear); Bilirubin Urine Negative (Negative); Blood Urine Negative (Negative); Color Urine Yellow (Yellow); Glucose Urine UA Negative (Negative); Ketones Urine Negative (Negative); Leukocyte Esterase Ur Negative LEU/UL (Negative); Nitrate Urine Negative (Negative); Protein Urine 1+ mg/dL (Negative); RBC Urine 0-2 /hpf (0-2); Specific Grav Ur 1.024 (1.001-1.035); Urobilinogen Urine Negative mg/dL (<2.0); WBC Urine 0-3 /hpf
[2020-01-01 20:20] LABS: Barbiturate Screen Urine Negative (Negative); Benzodiazepines Screen Urine Negative (Negative)
[2020-01-01 20:25] LABS: Cannabinoid Screen Urine Positive (Negative); Cocaine Screen Urine Negative (Negative); Methadone Screen Urine Negative (Negative); Opiate Screen Urine Negative (Negative); Phencyclidine Screen Urine Negative (Negative)
[2020-01-01 20:45] LABS: Troponin I 0.019 ng/mL (0.000-0.034)
[2020-01-01 20:45] LABS: Amphetamine Screen Urine Positive (Negative)
[2020-01-01 21:35] VITALS: BP 115/80; PULSE 87; RESP 20; O2SAT 97
[2020-01-01 22:05] VITALS: BP 110/78; PULSE 85; RESP 18; O2SAT 96
== END 2020-01-01 22:36 | disposition home or self-care (01) ==
PROVIDERS: Emergency Provider Emergency Medicine
DX: R55 Syncope and collapse (principal); I42.9 Cardiomyopathy, unspecified; I44.7 Left bundle-branch block, unspecified; F17.210 Nicotine dependence, cigarettes, uncomplicated; F41.9 Anxiety disorder, unspecified; I11.0 Hypertensive heart disease with heart failure; I50.9 Heart failure, unspecified; F32.9 Major depressive disorder, single episode, unspecified
CPT/HCPCS: 36415; 70450; 71045; 80048; 80307; 81001; 83880; 84484; 85025; 93005; 99284

== ENCOUNTER 2020-01-24 16:44 | Emergency (ER) | payer OTHER, SELFPAY ==
--- NOTE | ~2020-01-24 | XR_ITS ---
EXAMINATION: XR chest 1V portable 01/24/2020 17:29 INDICATION: Chest palpitations. Dyspnea. PROCEDURE: AP portable chest COMPARISON: 01/01/2020 FINDINGS: The lungs are clear. The cardiomediastinal silhouette is within normal limits. There are no pleural effusions. There is no pneumothorax suspected. IMPRESSION: 1: NO ACUTE CARDIOPULMONARY DISEASE. Reviewed, dictated and finalized at location A.
[2020-01-24 17:02] VITALS: BP 108/76; PULSE 87; RESP 20; TEMP 36.5; O2SAT 99
--- NOTE | 2020-01-24 17:20 | ED.ARRPALP ---
HPI - Arrhythmia/Palpitations General Chief Complaint: Arrhythmia/Palpitations Stated Complaint: CP Time Seen by Provider: 01/24/20 17:13 History of Present Illness HPI narrative: 49 yo male w/ h/o cardiomypathy and low ejection fraction brought in by EMS for SOB. While in police custody he began c/o chest pain and SOB. He is supposed to wear a life vest, but does not have it with him. On arrival here he is not answering my questions. He has been here with this same presentation in the past. History limited by cooperation Related Data Home Medications Medication Instructions Recorded Confirmed baclofen 10 mg PO TID 08/05/19 11/04/19 gabapentin 300 mg PO TID 08/05/19 11/04/19 spironolactone 12.5 mg PO DAILY 08/05/19 11/04/19 furosemide 20 mg PO DAILY 11/04/19 11/04/19 omeprazole 20 mg PO TIDWM 11/04/19 11/04/19 Allergies Allergy/AdvReac Type Severity Reaction Status Date / Time Penicillins Allergy Unknown Unknown Verified 01/24/20 17:08 Review of Systems Review of Systems: ROS unobtainable: Yes other (limited by lack of cooperation) [facility] Past Medical History Medical History Anxiety Aortic valve disease Carpal tunnel syndrome CHF (congestive heart failure) Depression Femur fracture Femur fracture, right Hypertension Opioid abuse Trigger thumb Family History Family History Mother Anxiety Osteoporosis Father Cerebrovascular accident Sibling Heart problem Diabetes mellitus Social History Social History Years smoked: 30 Smoking status: Current every day smoker Tobacco type: cigarettes Alcohol intake: current Drinks per week: 3 Substance use: current Substance use type: marijuana and methamphetamine Gender identity (if verbalized by the patient): Male Spiritual care concerns: No Exam Const: General: no acute distress and alert Orientation/consciousness: patient oriented x3 HENMT: Head: normal to inspection Eyes: Pupils: Equal, round and reactive pupils present Chest: Chest palpation & inspection: normal inspection of the chest Resp: Effort & Inspection: normal respiratory effort Auscultation: clear to auscultation bilaterally Cardio: Rate: regular rate Rhythm: regular rhythm Skin: General skin exam: normal color Neuro: General: patient oriented x3, moves all extremities, no focal motor deficits and CN's II-XI intact bilaterally Speech: normal speech Extrem: General: no edema Course Vital Signs Vital signs: Vital Signs Temperature 36.5 C 01/24/20 17:02 Pulse Rate 87 01/24/20 17:02 Respiratory Rate 20 01/24/20 17:02 Blood Pressure 108/76 01/24/20 17:02 Pulse Oximetry 99 01/24/20 17:02 Temperature 36.9 C 01/24/20 19:24 Pulse Rate 72 01/24/20 19:24 Respiratory Rate 16 01/24/20 19:24 Blood Pressure 119/72 01/24/20 19:24 Pulse Oximetry 98 01/24/20 19:24 MDM - Arrhythmia/Palpitations MDM Narrative Medical decision making narrative: EKG unchanged. Vitals stable. No distress. No indication for admission at this time. Medical Records Attestation: I reviewed the patient's medical records. Lab Data Attestation: I reviewed the patient's lab results. Result diagrams: 01/24/20 17:43 01/24/20 17:43 Labs: Lab Results 01/24/20 01/24/20 01/24/20 Range/Units 17:43 17:43 17:43 WBC 5.8 (4.5-10.0) K/mm3 RBC 4.28 L (4.6-6.20) M/mm3 Hgb 13.3 L (14.0-18.0) g/dL Hct 39.6 L (42.0-52.0) % MCV 92.5 (80-100) fl MCH 31.1 (26-34) pg MCHC 33.6 (32-36) g/dl RDW 12.9 (11.5-14.5) % Plt Count 165 (150-375) k/mm3 MPV 9.1 (7.4-10.4) fl Immature Gran % (Auto) 0.2 (0-0.5) % Neut % (Auto) 57.1 (45.5-73.1) % Lymph % (Auto) 28.1 (18.3-44.2) % [place] % (Auto) 9.0 H (2.6-8.5) % Eos %
[2020-01-24 17:52] LABS: Basophils Percent Auto 0.3 % (0.2-1.2); Eosinophils Absolute Auto 0.3 K/mm3 (0-0.3); Eosinophils Percent Auto 5.3 % (0-4.4); Hematocrit 39.6 % (42.0-52.0); Hemoglobin 13.3 g/dL (14.0-18.0); Immature Granulocyte Absolute 0.01 K/mm3 (0.00-0.031); Immature Granulocyte Percent A 0.2 % (0-0.5); Lymphocytes Absolute Auto 1.63 K/mm3 (0.9-3.2); Lymphocytes Percent Auto 28.1 % (18.3-44.2); Mean Corpuscular HGB Conc 33.6 g/dl (32-36); Mean Corpuscular Hemoglobin 31.1 pg (26-34); Mean Corpuscular Volume 92.5 fl (80-100); Mean Platelet Volume 9.1 fl (7.4-10.4); Monocytes Absolute Auto 0.5 K/mm3 (0.1-0.6); Neutrophils Absolute Auto 3.3 K/mm3 (1.3-6.7); Neutrophils Percent Auto 57.1 % (45.5-73.1); Platelet Count Result 165 k/mm3 (150-375); Red Blood Count 4.28 M/mm3 (4.6-6.20); Red Cell Distribution Width 12.9 % (11.5-14.5); White Blood Count 5.8 K/mm3 (4.5-10.0)
[2020-01-24 18:00] LABS: Partial Thromboplastin Time 28.1 SECONDS (22.3-36.8)
[2020-01-24 18:01] LABS: Anion Gap 6 mmol/L (8-16); Blood Urea Nitrogen 31 mg/dL (9-20); Calcium 8.8 mg/dL (8.4-10.2); Carbon Dioxide 25 mmol/L (22-30); Chloride 106 mmol/L (98-107); Estimated CRCL calculation 65 ml/min; Estimated Glomerular Filt Rate > 60; Glucose 89 mg/dL (75-110); Potassium 4.1 mmol/L (3.4-5.0); Sodium 137 mmol/L (137-145)
[2020-01-24 18:14] LABS: Troponin I 0.017 ng/mL (0.000-0.034)
[2020-01-24 18:27] VITALS: BP 114/76; PULSE 79; RESP 20; O2SAT 98
[2020-01-24 19:24] VITALS: BP 119/72; PULSE 72; RESP 16; TEMP 36.9; O2SAT 98
== END 2020-01-24 19:24 | disposition home or self-care (01) ==
PROVIDERS: Emergency Provider Emergency Medicine
DX: R00.2 Palpitations (principal); I35.8 Other nonrheumatic aortic valve disorders; I50.9 Heart failure, unspecified; I11.0 Hypertensive heart disease with heart failure; F17.210 Nicotine dependence, cigarettes, uncomplicated
CPT/HCPCS: 36415; 71045; 80048; 84484; 85025; 85610; 85730; 99284

== ENCOUNTER 2020-01-25 18:46 | Emergency (ER) | payer OTHER, SELFPAY ==
--- NOTE | ~2020-01-25 | XR_ITS ---
XR chest 1V portable 01/25/2020 20:14 Indication: Left-sided chest pain. Methamphetamine use today. History of arrhythmia. Procedure: AP portable chest Comparison: Comparison to multiple prior studies sequentially, with oldest reviewed study dated 08/08. Findings: Cardiomegaly. No focal air space disease, pulmonary edema, pleural effusion or suspected pn eumothorax. No acute osseous abnormality. Impression: 1: No acute cardiopulmonary disease. 2: Cardiomegaly. Reviewed, dictated and finalized at location A. Impression: 1: No acute cardiopulmonary disease. 2: Cardiomegaly.
--- NOTE | 2020-01-25 18:51 | ECG_ITS ---
Measurements Intervals [place] Rate: 88 P: 40 [place]: 165 QRS: -58 QRSD: 182 T: 103 QT: 432 QTc: 524 Interpretive Statements SINUS RHYTHM LEFT AXIS DEVIATION LEFT BUNDLE BRANCH BLOCK ABNORMAL ECG Electronically Signed On 01-26-2020 7:28:44 CDT by Coleman Talbot D.O.
[2020-01-25 18:55] VITALS: BP 109/82; PULSE 89; RESP 14; TEMP 37; O2SAT 98
--- NOTE | 2020-01-25 20:10 | PC.NURSE ---
Called lab to add on CK
[2020-01-25 20:11] VITALS: BP 119/94; PULSE 85; RESP 16; O2SAT 98
[2020-01-25 20:12] LABS: Basophils Percent Auto 0.3 % (0.2-1.2); Eosinophils Absolute Auto 0.3 K/mm3 (0-0.3); Eosinophils Percent Auto 4.4 % (0-4.4); Hematocrit 41.6 % (42.0-52.0); Hemoglobin 14.2 g/dL (14.0-18.0); Immature Granulocyte Absolute 0.01 K/mm3 (0.00-0.031); Immature Granulocyte Percent A 0.2 % (0-0.5); Lymphocytes Absolute Auto 1.72 K/mm3 (0.9-3.2); Lymphocytes Percent Auto 30.1 % (18.3-44.2); Mean Corpuscular HGB Conc 34.1 g/dl (32-36); Mean Corpuscular Hemoglobin 31.1 pg (26-34); Mean Platelet Volume 9.1 fl (7.4-10.4); Monocytes Absolute Auto 0.5 K/mm3 (0.1-0.6); Monocytes Percent Auto 9.4 % (2.6-8.5); Neutrophils Absolute Auto 3.2 K/mm3 (1.3-6.7); Neutrophils Percent Auto 55.6 % (45.5-73.1); Platelet Count Result 186 k/mm3 (150-375); Red Blood Count 4.57 M/mm3 (4.6-6.20); Red Cell Distribution Width 12.8 % (11.5-14.5); White Blood Count 5.7 K/mm3 (4.5-10.0)
[2020-01-25 20:23] LABS: Ethanol < 10 mg/dL (<10)
[2020-01-25 20:31] LABS: Alanine Aminotransferase 45 U/L (4-50); Albumin Level 4.2 g/dL (3.5-5.1); Alkaline Phosphatase 75 U/L (38-126); Anion Gap 5 mmol/L (8-16); Aspartate Amino Transferase 49 U/L (17-59); Bilirubin,Total 0.5 mg/dL (0.2-1.3); Blood Urea Nitrogen 25 mg/dL (9-20); Calcium 9.2 mg/dL (8.4-10.2); Carbon Dioxide 28 mmol/L (22-30); Chloride 105 mmol/L (98-107); Creatine Kinase 227 U/L (55-170); Estimated CRCL calculation 56 ml/min; Estimated Glomerular Filt Rate 59; Glucose 101 mg/dL (75-110); Sodium 138 mmol/L (137-145)
[2020-01-25 20:43] LABS: Troponin I 0.024 ng/mL (0.000-0.034)
[2020-01-25 21:55] VITALS: BP 108/91; PULSE 76; RESP 18; O2SAT 97
--- NOTE | 2020-01-25 22:14 | ED.CHESTPAIN ---
HPI - Chest Pain General Chief Complaint: Chest Pain Stated Complaint: cp Time Seen by Provider: 01/25/20 19:29 Source: patient Mode of arrival: EMS Limitations: no limitations History of Present Illness HPI narrative: This patient is a 49 year old male with history methamphetamine abuse, nonischemic cardiomyopathy who presents with complaint of chest pain after he got arrested. Patient states he became hot in the police car so he because lightheaded and stated that he has nonradiate chest tightness. He denies any chest tightness now. He denies any complaints now. I reviewed patient's previous chart and he has NICM and he suppose to be wearing a life vest but he refuses. Cell Room Operator note reports patient had normal cardiac cath and stress test in past year so they do not recommend ischemic evaluation. Related Data Home Medications Medication Instructions Recorded Confirmed baclofen 10 mg PO TID 08/05/19 11/04/19 gabapentin 300 mg PO TID 08/05/19 11/04/19 spironolactone 12.5 mg PO DAILY 08/05/19 11/04/19 furosemide 20 mg PO DAILY 11/04/19 11/04/19 omeprazole 20 mg PO TIDWM 11/04/19 11/04/19 Allergies Allergy/AdvReac Type Severity Reaction Status Date / Time Penicillins Allergy Unknown Unknown Verified 01/24/20 17:08 Review of Systems Review of Systems: All systems reviewed & are unremarkable except as noted in HPI and below PMFSH Past Medical History Medical History Anxiety Aortic valve disease Carpal tunnel syndrome CHF (congestive heart failure) Depression Femur fracture Femur fracture, right Hypertension Opioid abuse Trigger thumb Social History Social History Years smoked: 30 Smoking status: Current every day smoker Tobacco type: cigarettes Alcohol intake: current Drinks per week: 3 Substance use: current Substance use type: marijuana and methamphetamine Gender identity (if verbalized by the patient): Male Spiritual care concerns: No Exam Const: General: no acute distress Orientation/consciousness: patient oriented x3 Other: sleeping Eyes: Pupils: Equal, round and reactive pupils present EOM: EOMs intact bilaterally Neck: Neck: no lymphadenopathy Resp: Effort & Inspection: normal respiratory effort and no retractions Auscultation: clear to auscultation bilaterally Cardio: Rate: regular rate Rhythm: regular rhythm Heart sounds: no murmurs GI: GI Palp: Yes Soft to palpation, No Tenderness to palpation present (GI) and No Guarding due to palpation present (GI) Auscultation: normal bowel sounds Skin: General skin exam: normal color Rashes: no rashes Neuro: General: patient oriented x3, moves all extremities, no meningeal signs and CN's II-XI intact bilaterally Course Vital Signs Vital signs: Vital Signs Temperature 98.6 F 01/25/20 18:55 Pulse Rate 89 01/25/20 18:55 Respiratory Rate 14 01/25/20 18:55 Blood Pressure 109/82 01/25/20 18:55 Pulse Oximetry 98 01/25/20 18:55 Temperature 98.0 F 01/25/20 23:22 Pulse Rate 82 01/25/20 23:22 Respiratory Rate 16 01/25/20 23:22 Blood Pressure 117/83 01/25/20 23:22 Pulse Oximetry 98 01/25/20 23:22 MDM - Chest Pain Lab Data Attestation: I reviewed the patient's lab results. Result diagrams: 01/25/20 20:07 01/25/20 20:07 Labs: Lab Results 01/25/20 01/25/20 01/25/20 Range/Units 20:07 20:07 20:07 WBC 5.7 (4.5-10.0) K/mm3 RBC 4.57 L (4.6-6.20) M/mm3 Hgb 14.2 (14.0-18.0) g/dL Hct 41.6 L (42.0-52.0) % MCV 91.0 (80-100) fl MCH 31.1 (26-34) pg MCHC 34.1 (32-36) g/dl RDW 12.8 (11.5-14.5) % Plt Count 186 (150-375) k/mm3 MPV 9.1 (7.4-10.4) fl Immature Gran % (Auto) 0.2 (0-0.5) % Neut % (Auto) 55.6 (45.5-73.1) % Lymph % (Auto) 30.1 (18.3-44.2) % [place] % (Auto) 9.4 H (2.6-
[2020-01-25 23:22] VITALS: BP 117/83; PULSE 82; RESP 16; TEMP 36.7; O2SAT 98
== END 2020-01-25 23:23 | disposition home or self-care (01) ==
PROVIDERS: Emergency Provider General Practice
DX: R07.89 Other chest pain (principal); I42.8 Other cardiomyopathies; I35.8 Other nonrheumatic aortic valve disorders; I50.9 Heart failure, unspecified; I11.0 Hypertensive heart disease with heart failure; F17.210 Nicotine dependence, cigarettes, uncomplicated; I51.7 Cardiomegaly
CPT/HCPCS: 36415; 71045; 80053; 80307; 82550; 84484; 85025; 93005; 99284

== ENCOUNTER 2024-08-30 13:17 | Emergency (ER) | payer OTHER, SELFPAY ==
[2024-08-30] VITALS (8 sets, daily range): BP systolic 98–119; BP diastolic 61–88; PULSE 76–87; RESP 13–17; TEMP 36.4; O2SAT 98–100
--- NOTE | 2024-08-30 13:23 | ECG_ITS ---
Test Date: 2024-08-30 13:25:01 Measurements Intervals [place] Rate: 81 P: 30 [place]: 169 QRS: -29 QRSD: 142 T: 44 QT: 379 QTc: 440 Interpretive Statements ATRIAL SENSE- ELECTRONIC VENTRICULAR PACEMAKER NO FURTHER INTERPRETATION IS POSSIBLE ATYPICAL ECG No previous ECG available for comparison Electronically Signed On 08-30-2024 13:38:25 CDT by Coleman Talbot D.O.
[2024-08-30 13:34] LABS: Basophils Percent Auto 0.2 % (0.2-1.2); Eosinophils Absolute Auto 0.1 K/mm3 (0-0.3); Eosinophils Percent Auto 1.1 % (0-4.4); Hematocrit 51.8 % (42.0-52.0); Immature Granulocyte Absolute 0.04 K/mm3 (0.00-0.031); Immature Granulocyte Percent A 0.4 % (0-0.5); Lymphocytes Absolute Auto 1.38 K/mm3 (0.9-3.2); Lymphocytes Percent Auto 13.9 % (18.3-44.2); Mean Corpuscular HGB Conc 32.8 g/dl (32-36); Mean Corpuscular Hemoglobin 31.1 pg (26-34); Mean Corpuscular Volume 94.7 fl (80-100); Mean Platelet Volume 8.6 fl (7.4-10.4); Monocytes Absolute Auto 0.8 K/mm3 (0.1-0.6); Neutrophils Absolute Auto 7.6 K/mm3 (1.3-6.7); Neutrophils Percent Auto 76.4 % (45.5-73.1); Platelet Count Result 179 k/mm3 (150-375); Red Blood Count 5.47 M/mm3 (4.6-6.20); Red Cell Distribution Width 13.8 % (11.5-14.5)
--- OUTSIDE RECORDS SUMMARY | 2024-08-30 13:34 | XMS_ITS ---
Author Organization Formerly [facility] Address [address] [place] [address] Care Team Providers Care Laboratory Veterinarian Name Role Phone Jerica Boss Primary Care Provider [phone] [facility] Unavailable U francheskaailDiamond Saunders Unavailable REASON FOR VISIT PRAPRARE Assess Social History Tobacco Use: Social History Observation Description Date Details (start date - stop date) Former Smoker NA - NA Dont use, Tobacco Use/Smoking Question Answer Notes Are you a former smoker How long has it been since you last smoked? 1-5 years PRAPARE Question Answer Notes Date Completed/Updated: 05/06/2024 What is your current housing situation? I have h ousing Are you worried about losing your housing? No What is the highest level of school that you have finished? High school diploma or GED What is your current work situation? Unemployed and seeking work In the past year, have you o r any family members you live with been unable to get any of the following when it was really needed? Check all that apply I do not have problems meeting my needs Has lack of transportation k ept you from medical appointments, meetings, work or from getting things needed for daily living? No How often do you see or talk to people that you care about and feel close to? (For example: talking to friends on the phone, visiting friends or family, going to amish or club meetings) Less than once a week How stressed are you? Stress is when someone feels tense, nervous, anxious, or can\t sleep at night because their mind is troubled Not at all In the past year have you sp ent more than 2 nights in a row in a correction, shelter, mcc center, or juvenile correctional facility? No Are you a refugee? No What country are you from? [place] Do you feel physically and e motionally safe where you currently live? Yes In the past year, have you b een afraid of your partner or ex-partner? Yes PRAPARE Score: 8 Encounters Encounter Location Date Provider Diagnosis [address] [place] [address] 05/07/2024 Diamond Khan Plan Of Treatment Next Appt Details Provider Name:Radha Pendleton chapo, 09/03/2024 09:00:00 AM, [address], [address], Progress Notes * Taye WHITAKERDOB: 1 (53 yo M)Acc No.[id number]:05/07/2024 Patient: Taye DILLARD :1970 A ge:53 Y S ex:Male Address:[address] [place] [address], [id number] Subjective: * Chief Complaints: * P RAPRARE Assess * Medical History: * Surgical History: * Hospitalization/Major Diagno stic Procedure: * Social History: S ocial Determinants: Cher Pryor ate Completed/Updated: 1 07/07/2023, W hat is your current housing situation? I have housing, A re you worried about losing your housing? N o, W hat is the highest level of school that you have finished? H igh school diploma or GED, W hat is your current work situation? U nemployed and seeking work, I n the past year, have you or any family members you live with been unable to get any of the following when it was really needed? Check all that apply I do not have problems meeting my needs, H as lack of transportation kept you from medical appointments, meetings, work or from getting things needed for daily living? N o,?How often do you see or talk to people that you care about and feel close to? (For example: talking to friends on the phone, visiting friends or family, going to amish or club meetings) L ess than once a week, H ow stressed are you? Stress is when someone feels tense, nervous, anxious, or can\t sleep at night because their mind is troubled N ot at all, I n the past year have you spent more than 2 nights in a row in a correction, shelter, mcc center, or juvenile correctional facility? N o, A re you a refugee? N o, W hat country are you from[place], D o you feel physically and emotionally safe where you currently live? Y es, I n the past year, have you been afraid of your partner or ex-partner? Y es, P RAPARE Score: 8 . T obacco Use: D ont use, Tobacco Use/Smoking A re you a f ormer smoker, H ow long has it been since you last smoked? 1 -5 years. * Medications: Objective: * Vitals: * Physical Examination: Assessment: Plan: * Treatment: * Procedure Codes: * true * Date: Generated for Flo germain/Angelica/Dianasmitting on: 0 08/30/2024 01:34 PM CDT
--- OUTSIDE RECORDS SUMMARY | 2024-08-30 13:35 | XMS_ITS | CONTINUITY OF CARE DOCUMENT ---
Author Name aixa kruse Address Unknown Organization [facility] Address [address] [place] [address] Phone [phone] Care Team Providers Care Associate Dean Of Women Name Role Phone Ledy NOEL, David Unavailable ESTHELA NOEL, KAITLIN Unavailable [phone] ESTHELA NOEL, KAITLIN Unavailable [phone] PROBLEMS Condition Status Date Provider Notes S/P BIV/AICD Biotronik ( MRI Safe) active Mary Menchaca G E R D active ? Normanleticia Miller MD Chest pain-type to be determined completed - Natanael Macario Abdominal pain completed - Natanael Macario Arthritis - osteo active Normancher Miller MD Abnormal electrocardiogram active Norman D as Drug abuse- meth active p Paul NOEL LBBB active Normanleticia Miller MD Dilated Cardiomyopathy, nonischemic EF 15% active Mann Matias Tobacco abuse active Sundeep Cason MD LV systolic dysfunction active Sundeep Valadez ra, MD Screening, diabetes mellitus completed 201 02/04/20 - Natanael Macario Hypertension active Natanael Macario Systolic CHF active Natanael Macario Defibrillator active David salcedo MD (Status post) Daytime hypersomnia active Nancy Willard NP Cardiology examination active Henrry Glaser Foot pain active Henrry Glaser Diabetes mellitus, type 2 active Henrry choi ENCOUNTERS Date Type Provider Location Encounter Diag nosis - In-person encounter Office Visit David Villafana MD [facility] Cardiology examinationFoot painDiabetes mellitus, type 2 - In-person encounter Office Visit David Villafana MD [facility] - In-person encounter Office Visit David Villafana MD [facility] - In-person encounter Office Visit David Villafana MD [facility] - In-person encounter Office Visit David Villafana MD [facility] - In-person encounter Office Visit David Villafana MD [facility] Daytime hypersomnia - In-person encounter Office Visit David Villafana MD [facility] - In-person encounter Office Visit David Villafana MD [facility] - In-person encounter Office Visit David Villafana MD [facility] Defibrillator - In-person encounter Office Visit David Villafana MD, [facility] Chest pain-type to be determinedAbdominal painScreening, diabetes mellitusHypertensionSystolic CHF - In-person encounter Office Visit David Villafana MD [facility] - In-person encounter Office Visit [facility] - In-person encounter Office Visit David Villafana MD [facility] Dilated Cardiomyopathy, nonischemic EF 15% - In-person encounter Office Visit David Villafana MD [facility] - In-person encounter Office Visit David Villafana MD [facility] - In-person encounter Office Visit David Villafana MD [facility] - In-person encounter Office Visit Sundeep Cason MD [facility] Dilated Cardiomyopathy, nonischemic EF 15%Tobacco abuseLV systolic dysfunction - In-person encounter Office Visit Norman Miller MD [facility] G E R DArthritis - osteoAbnormal electrocardiogramDrug abuse- methLBBB VITAL SIGNS Date Observation Value Provider Body Mass Index (Ratio) 28.24 kg/m2 Henrry Glaser blood pressure, diastolic 75 mm[Hg] [facility], systolic 109 mm[Hg] Karime [facility] oxygen saturation, oximetry 97 % [facility] pulse rate 79 /min [facility] respiratory rate E&M 12 /min [facility] weight E&M 175 [lb_av] [facility] height E&M 66 [in_i] [facility] blood pressure, cuff size regular An [facility] Body Mass Index (Ratio) 26.47 kg/m2 Rosales Nelson blood pressure, diastolic 69 mm[Hg] Ja et blood pressure, systolic 109 mm[Hg] Tyler ret pulse rate 86 /min Carlos Manuel blood pressure, cuff size regular Ja rret respiratory rate E&M 14 /min Carlos Manuel oxygen saturation, oximetry 98 % Carlos Manuel weight E&M 164 [lb_av] Carlos Manuel y height E&M 66 [in_i] Carlos Manuel sommers Body Mass Index (Ratio) 26.47 kg/m2 Rosales al [place] blood pressure, cuff size regular Ke rri Gruenenfelder blood pressure, diastolic 76 mm[Hg] Ke rri Gruenenfelder blood pressure, systolic 114 mm[Hg] Tony ri Gruenenfelder oxygen saturation, oximetry 99 % Rosa Gruenenfelder respiratory rate E&M 12 /min Rosa G ruenenfelder pulse rate 91 /min Rosa Gruenenfe lder weight E&M 164 [lb_av] Rosa Gruenenfe lder height E&M 66 [in_i] Rosa Gruenenfe lder blood pressure, diastolic 86 mm[Hg] Li nkLogic blood pressure, systolic 130 mm[Hg] Aimee kLog pulse rate 77 /min Ирина [place] blood pressure, cuff size regular Fa [facility] blood pressure, diastolic 86 mm[Hg] Fa [facility] blood pressure, systolic 130 mm[Hg] Joel [facility] oxygen saturation, oximetry 99 % Ирина [place] respiratory rate E&M 16 /min Ирина Philip iller height E&M 66 [in_i] Ирина [place] Body Mass Index (Ratio) 28.57 kg/m2 Henrry Glaser blood pressure, cuff size regular Ke rri Gruenenfelder blood pressure, diastolic 80 mm[Hg] Ke rri Gruenenfelder blood pressure, systolic 146 mm[Hg] Tony ri Gruenenfelder oxygen saturation, oximetry 99 % Rosa Gruenenfelder respiratory rate E&M 12 /min Rosa G ruenenfelder pulse rate 96 /min Rosa Gruenenfe lder weight E&M 177 [lb_av] Rosa Gruenenfe er height E&M 66 [in_i] Rosa Gruenenfe er Body Mass Index (Ratio) 32.28 kg/m2 Henrry Cheungsimi blood pressure, systolic 125 mm[Hg] Vivek maureen [place] blood pressure, diastolic 68 mm[Hg] St leland [place] respiratory rate E&M 16 /min Momo ie [place] pulse rate 92 /min Deborah Lohma n weight E&M 200 [lb_av] [facility], oximetry 96 % Deborah [place] blood pressure, cuff size large St andree [place] height E&M 66 [in_i] Deborah Lohma n blood pressure, diastolic 132 mm[Hg] Li nkLogic blood pressure, systolic 147 mm[Hg] Aimee kLogic blood pressure, cuff size large Ke rri Gruenenfelder blood pressure, diastolic 132 mm[Hg] Ke rri Gruenenfelder blood pressure, systolic 147 mm[Hg] Ker ri Gruenenfelder oxygen saturation, oximetry 98 % Rosa Gruenenfelder respiratory rate E&M 16 /min Rosa G trinityenenfelder pulse rate 70 /min Rosa Gruenenfe [facility] height E&M 66 [in_i] Rosa Gruenenfe er Body Mass Index (Ratio) 34.70 kg/m2 Taew on Samuel blood pressure, resting Yes Florencio krystina Amirah blood pressure, diastolic 100 mm[Hg] Fe buddy Vaughan blood pressure, systolic 158 mm[Hg] Fel icia Vaughan pulse rate 66 /min Tamica Vaughan oxygen saturation, oximetry 97 % Tamica Vaughan respiratory rate E&M 16 /min Tamica Vaughan temperature E&M 97.8 [degF] Tamica Vaughan weight E&M 215 [lb_av] Tamica Vaughan height E&M 66 [in_i] Tamica Vaughan Body Mass Index (Ratio) 26.31 kg/m2 Gaetano Villafana MD blood pressure, cuff size regular Ke rri G[facility]neal[facility]haver[facility] state hospitaljitendra blood pressure, diastolic 60 mm[Hg] Ke rri Robbuenenfvermont state hospitaler blood pressure, systolic 102 mm[Hg] Tony ri Maynor oxygen saturation, oximetry 96 % Rosa Maynor respiratory rate E&M 16 /min Rosa Karol mo pulse rate 79 /min Rosa Lita [facility] weight E&M 163 [lb_av] Rosa Estebane [facility] height E&M 66 [in_i] Rosa Lita [facility] Body Mass Index (Ratio) 24.85 kg/m2 Fco Matias oxygen saturation, oximetry 96 % Yani Barraza blood pressure, diastolic 77 mm[Hg] Cy tony Barraza blood pressure, systolic 114 mm[Hg] Perla jarred Barraza respiratory rate E&M 16 /min Yani Barraza weight E&M 154 [lb_av] Yani Ana l blood pressure, cuff size regular Cy tony Barraza height E&M 66 [in_i] Yani Campbel l temperature site temporal Mariola Tank sley temperature E&M 97.8 [degF] Marioal bauer Body Mass Index (Ratio) 26.47 kg/m2 Jord en Florencio blood pressure, cuff size regular Cy tony Barraza blood pressure, diastolic 80 mm[Hg] Cy ntchasitya Barraza blood pressure, systolic 118 mm[Hg] Perla jarred Barraza oxygen saturation, oximetry 95 % Yani Barraza respiratory rate E&M 16 /min Yanijarred Barraza pulse rate 98 /min Yani Ana l weight E&M 164 [lb_av] Yani Campbel l height E&M 66 [in_i] Yani Ozielbel l Body Mass Index (Ratio) 25.82 kg/m2 Jord nicholas Matias blood pressure, cuff size regular Cy tony Barraza blood pressure, diastolic 80 mm[Hg] Cy nttrinity Barraza blood pressure, systolic 124 mm[Hg] Perla jarred Barraza pulse rate 112 /min Yani Perez l oxygen saturation, oximetry 98 % Yani Barraza respiratory rate E&M 16 /min Yani Barraza weight E&M 160 [lb_av] Yani Ozielbel l height E&M 66 [in_i] Yani Ozielbel l Body Mass Index (Ratio) 25.50 kg/m2 Mason Melara blood pressure, cuff size regular Cy tony Barraza blood pressure, diastolic 70 mm[Hg] Cy ntchasitya Barraza blood pressure, systolic 114 mm[Hg] Perla jarred Barraza oxygen saturation, oximetry 97 % Yani Barraza respiratory rate E&M 18 /min Yani Barraza pulse rate 110 /min Yani Ozielbel l weight E&M 158 [lb_av] Yani Campbel l height E&M 66 [in_i] Yani Perez anthony Body Mass Index (Ratio) 27.34 kg/m2 Senthil Cason MD blood pressure, cuff size regular Rh gordy Arora blood pressure, diastolic 80 mm[Hg] Rh gordy Arora blood pressure, systolic 105 mm[Hg] Rho ronald Arora oxygen saturation, oximetry 98 % Kelly Maite respiratory rate E&M 16 /min Kelly Maite pulse rate 96 /min Kelly Maite weight E&M 169.4 [lb_av] Kelly Maite height E&M 66 [in_i] Kelly Maite Body Mass Index (Ratio) 26.47 kg/m2 Kapil Carlson RN blood pressure, diastolic 70 mm[Hg] Er ica Renee blood pressure, systolic 108 mm[Hg] Brielle ca Renee blood pressure, resting No Magen a Renee oxygen saturation, oximetry 99 % Estephania Renee pulse rate 89 /min Estephania Ed Davalos weight E&M 164 [lb_av] Estephania Ed Davalos height E&M 66 [in_i] Estephania Davalos ALLERGIES Allergy Name Onset Date Reaction Criticality Status PENICILLIN Low Criticality active RESULTS Date Observation Value Provider Reference Range Interpretation Location activated partial thromboplastin time (aPTT) 28 s [facility] 24-33 prothrombin time (patient) 10.4 s [facility] 9.1-12.0 international normalized ratio (INR) 1.0 [facility] 0.8-1.2 lipoprotein, beta, serum, point, quantitative, calculated 96 mg/dL [facility] 0-99 very low density lipoproteins 9 mg/dL [facility] 5-40 HDL cholesterol, serum 67 mg/dL [facility] >39 triglyceride, serum, random 45 mg/dL [facility] 0-149 cholesterol, serum 172 mg/dL [facility] [phone]/05/ 23 alanine aminotransferase (SGPT), serum 31 1/L [facility] 0-44 aspartate aminotransferase (SGOT), serum 36 1/L [facility] 0-40 alkaline phosphatase, serum 78 1/L [facility] 39-117 bilirubin, serum, total 0.6 mg/dL [facility] 0.0-1.2 albumin/globulin ratio, serum 2.1 [facility] 1.2-2.2 globulin, serum 2.1 [facility] 1.5-4.5 albumin, serum 4.4 g/dL [facility] 4.0-5.0 protein, total, serum 6.5 g/dL [facility] 6.0-8.5 calcium, serum 9.5 mg/dL [facility] 8.7-10.2 carbon dioxide, venous blood 24 mmol/L [facility] 20-29 chloride, serum 103 mmol/L [facility] 96-106 potassium, serum 4.3 mmol/L [facility] 3.5-5.2 sodium, serum 141 mmol/L [facility] [id number] 2453/05/ 23 urea nitrogen/creatinine ratio, serum 20 [facility] 9-20 eGFR if 78 mL/min/{1.73 _m2} [facility] >59 eGFR if not 68 mL/min/{1.73 _m2} [facility] >59 creatinine, serum 1.24 mg/dL [facility] 0.76-1.27 urea nitrogen, blood 25 mg/dL [facility] 6-24 High blood glucose, random 72 mg/dL [facility] 65-99 bacteria, urine microscopy Few [facility] None seen/Few Crystal Type, Urine Amorphous Sediment [facility] N/A epithelial cells, urine None seen [facility] 0 - 10 RBC, Urine 0-2 /hpf [facility] 0 - 2 WBC urine on microscopy 0-5 /hpf [facility] 0 - 5 urinalysis, microscopic examination See report [facility] nitrate, urine Negative [facility] Negative urobilinogen, urine, semiquantitative (dipstick) 1.0 [facility] 0.2-1.0 bilirubin, urine Negative [facility] Negative hemoglobin, urine, by dipstick Negative [facility] Negative ketones, urine, by test strip Negative [facility] Negative glucose, urine Negative [facility] Negative protein, urine, semiquantitative (dipstick) Negative [facility] Negative/Tra ce leukocyte esterase, urine, by dipstick Negative [facility] Negative appearance, urine Cloudy [facility] Clear Abnormal urine color Yellow [facility] Yellow pH, urine, semiquantitative 7.5 [facility] 5.0-7.5 specific gravity, body fluid 1.020 [facility] 1.005-1.030 basophil count, absolute 0.0 x10E3/uL [facility] 0.0-0.2 Eosinophil Absolute Count 0.3 X10E3/UL [facility] 0.0-0.4 monocyte count, blood, automated 0.6 X10E3/UL [facility] 0.1-0.9 lymphocyte count, blood, automated 2.1 X10E3/UL [facility] 0.7-3.1 Absolute Neutrophils 3.0 X10E3/UL [facility] 1.4-7.0 basophils as percent of blood leukocytes 0 % [facility] Not Estab. eosinophils as percent of blood leukocytes 4 % [facility] Not Estab. monocytes as percent of blood leukocytes 10 % [facility] Not Estab. lymphocytes as percent of blood leukocytes 35 % [facility] Not Estab. neutrophils as percent of blood leukocytes 51 % [facility] Not Estab. platelet count 215 X10E3/UL [facility] [phone]/05/ 23 red blood cell distribution width 12.2 % [facility] 11.6-15.4 mean corpuscular hemoglobin concentration, RBC 33.9 G/DL [facility] 31.5-35.7 mean corpuscular hemoglobin, RBC 31.0 pg [facility] 26.6-33.0 mean corpuscular volume, RBC 91 fL [facility] 79-97 hematocrit, blood 43.7 % [facility] 37.5-51.0 hemoglobin, blood 14.8 g/dL [facility] 13.0-17.7 erythrocyte (RBC) count 4.78 X10E6/UL [facility] 4.14-5.80 leukocyte count, blood 6.0 X10E3/UL [facility] 3.4-10.8 pro brain natriuretic peptide 8152 pg/mL [facility] 0-121 High lipoprotein, beta, serum, point, quantitative, calculated 100 mg/dL [facility] 0-99 High very low density lipoproteins 20 mg/dL [facility] 5-40 HDL cholesterol, serum 47 mg/dL [facility] >39 triglyceride, serum, random 100 mg/dL [facility] 0-149 cholesterol, serum 167 mg/dL [facility] [phone]/07/ 24 calcium, serum 9.5 mg/dL [facility] 8.7-10.2 carbon dioxide, venous blood 22 mmol/L [facility] 20-29 chloride, serum 102 mmol/L [facility] 96-106 potassium, serum 4.8 mmol/L [facility] 3.5-5.2 sodium, serum 142 mmol/L [facility] [phone]/07/ 24 urea nitrogen/creatinine ratio, serum 24 [facility] 9-20 High eGFR if 72 mL/min/{1.73 _m2} [facility] >59 eGFR if not 62 mL/min/{1.73 _m2} [facility] >59 creatinine, serum 1.34 mg/dL [facility] 0.76-1.27 High urea nitrogen, blood 32 mg/dL [facility] 6-24 High blood glucose, random 152 mg/dL [facility] 65-99 High HISTORY OF MEDICATION USE Medication Status Instructions Dates Provider Indications Com ments furosemide 20 mg tablet active TAKE 1 TABLET BY MOUTH ONCE DAILY [facility] levofloxacin 500 mg tablet active Take 1 tablet by mouth once a day Henrry Glaser digoxin 125 mcg (0.125 mg) tablet active Take 1 tablet by mouth once a day Henrry Glaser metformin (Glucophage XR) 500 mg tablet extended release 24 hr active TAKE 1 TABLET BY MOUTH TWICE DAILY WITH MEALS Henrry Glaser carvedilol 12.5 mg tablet active TAKE 1 TABLET [facility]OUTH [facility] tablet active TAKE 1 TABLET BY MOUTH EVERY [facility] mg tablet completed TAKE 1 TABLET BY MOUTH EVERY DAY - [facility] Entresto 24-26 mg tablet active TAKE ONE (1) TABLET BY MOUTH TWICE DAILY Anthony Irvint Jardiance 10 mg tablet completed TAKE 1 TABLET BY MOUTH ONCE DAILY - [facility] carvedilol 12.5 mg tablet completed TAKE ONE (1) TABLET BY MOUTH TWICE DAILY - [facility] spironolactone 25 mg tablet active TAKE 1/2 TABLET BY MOUTH ONCE DAILY Henrry Glaser Coreg 12.5 mg tablet completed Take 1 tablet by mouth twice a day - Anthony Irvint Jardiance 10 mg tablet completed Take 1 tablet by mouth once a day - Anthony Jean simvastatin 40 mg tablet active TAKE 1 TABLET BY MOUTH EVERY NIGHT AT BEDTIME Anthony Jean Jardiance 10 mg tablet completed TAKE ONE TABLET BY MOUTH ONCE DAILY - Rosa Mcguire Entresto 24-26 mg tablet completed Take 1 tablet by mouth twice a day - Anthony Jean simvastatin 40 mg tablet completed TAKE 1 TABLET BY MOUTH EVERYDAY AT BEDTIME - Rosa Mcguire spironolactone 25 mg tablet completed TAKE 1/2 TABLET BY MOUTH ONCE A DAY - [facility] mg tablet completed Take 1 tablet by mouth at bedtime - [facility] simvastatin 40 mg tablet completed TAKE 1 TABLET BY MOUTH EVERY NIGHT AT BEDTIME - Rosa Mcguire Coreg 12.5 mg tablet completed TAKE 1 TABLET BY MOUTH TWICE DAILY - Rosa Mcguire Entresto 24-26 mg tablet completed Take 1 tablet by mouth twice a day - [facility] spironolactone 25 mg tablet completed Take 0.5 tablet by mouth once a day - [facility] Entresto 24-26 mg tablet completed 1 tablet twice a day - Nancy Willard NP Coreg 12.5 mg tablet completed 1 tablet twice a day - Nancy Willard NP spironolactone 25 mg tablet completed 0.5 tablet once a day - Rosa Mcguire furosemide 20 mg tablet completed Take 1 tablet by mouth once a day - Karely Rushi LOSARTAN 25MG TABLETS completed TAKE 1 TABLET BY MOUTH EVERY DAY - Lia Baker METOPROLOL SUCCINATE ER 25 MG ORAL TABLET EXTENDED RELEASE 24 HOUR completed one tab daily - David Villafana MD PRILOSEC 20 MG ORAL CAPSULE DELAYED RELEASE active 1 tablet once a day Norman Miller MD MELOXICAM 15 MG ORAL TABLET completed TAKE ONE TABLET BY MOUTH EVERY DAY - Rosa Mcguire #30, 30 days supply, Prescribed by RYLAN MILLARD, Filled 10/11/2017 SOCIAL HISTORY Date Observation Value Provider drug use no Henrry Glaser alcohol use no Henrry Glaser smoking/tobacco cess ation, patient education and counseling yes Henrry Glaser smoking, year quit 2019 Henrry hopson smoking history, tot al pack/day 1 Henrry Glaser cigarette use yes Henrry Glaser smoking status Current every day smoker R alma Glaser drug use no Edu Nelson alcohol use no Edu Nelson smoking/tobacco cess ation, patient education and counseling yes Edu Nelson smoking, year quit 2019 Edu Be atty smoking history, tot al pack/day 1 Edu Nelson cigarette use yes Edu Nelson smoking status Current every day smoker T eric Nelson drug use no Edu Nelson alcohol use no Edu Nelson smoking/tobacco cess ation, patient education and counseling yes Edu Nelson smoking, year quit 2019 Edu Be atty smoking history, tot al pack/day 1 Edu Nelson cigarette use yes Edu Nelson smoking status Current every day smoker T eric Nelson smoking/tobacco cess ation, patient education and counseling yes Nancy Willard NP smoking history, tot al pack/day 1 Nancy Willard NP cigarette use yes Nancy ham TELESALES REPRESENTATIVE smoking status Current every day smoker Torie katizhen Montse TELESALES REPRESENTATIVE smoking, year quit 2019 Deborah Rosa smoking history, tot al pack/day 2 Deborah Rosa cigarette use yes Deborah cowan smoking status Former smoker Deborah conklin social history E&M 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 Henrry Glaser social history reviewed E&M revi ewed - no changes required Henrry Metcalfzasimi smoking, 2019 Rosa Kaye demetrioer smoking history, tot al pack/day 2 Rosa Jenniferer cigarette use yes Rosa Esteban martinez smoking status Former smoker Rosa Pearl mannieer social history reviewed E&M revi ewed - no changes required Henrry Metcalfzasimi drug use no Natanael Lundb erg alcohol use no Natanael Hab erg social history E&M 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 Natanael Macario social history reviewed E&M revi ewed - no changes required Natanael Macario smoking, 2019 Tamica F margaret smoking history, tot al pack/day 2 Tamica Vaughan cigarette use yes Tamica Vaughan smoking status Former smoker Tamica Vaughan social history E&M Patient khadra eisenbergly smokes sometimes. D rug Use - yes, meth last used 11/04/18, trying to quit A lcohol Use - yes, last used two weeks ago, Smoking History: Cher sousa is a former smoker. Lia Baker social history reviewed E&M revi ewed - no changes required Lia Baker smoking, year quit 2020 Rosa Kaye enenfelder cigarette use yes Rosa Pearlnf elder smoking status Former smoker Rosa Pearl nfelder social history reviewed E&M revi ewed - no changes required David Villafana MD social history reviewed E&M revi ewed - no changes required Mann Florencio smoking/tobacco cess ation, patient education and counseling yes Yani Barraza smoking history, tot al pack/day 2 Yani Barraza cigarette use yes Yani levy smoking status Current every day smoker C kami Barraza social history reviewed E&M revi ewed - no changes required Mann Florencio smoking/tobacco cess ation, patient education and counseling yes Yani Barraza smoking history, tot al pack/day 2 Yani Barraza cigarette use yes Yani levy smoking status Current every day smoker C kami Barraza social history reviewed E&M revi ewed - no changes required Mann Matias smoking/tobacco cess ation, patient education and counseling yes Yani Barraza smoking history, tot al pack/day 2 Yani Barraza cigarette use yes Yani levy smoking status Current every day smoker C kami Barraza number of grandchildren David Melara smoking/tobacco cess ation, patient education and counseling yes Artur Melara smoking status Current every day smoker N maricarmen Melara social history E&M Patient khadra oakley smokes sometimes. D rug Use - yes, meth last used 11/04/18, trying to quit A lcohol Use - yes, last used two weeks ago, Smoking History: P atient currently smokes every day. P atient has been counseled to quit. Artur Melara social history reviewed E&M revi ewed - no changes required Artur Melara smoking history, tot al pack/day 2 Yani Barraza cigarette use yes Yani levy number of grandchildren Sundeep Cason MD social history E&M Patient khadra ntly smokes sometimes. D rug Use - yes, meth last used 11/04/18, trying to quit A lcohol Use - yes, last used two weeks ago, Smoking History: P atient currently smokes every day. P atient has been counseled to quit. Sundeep Cason MD smoking/tobacco cess ation, patient education and counseling yes Sundeep Cason MD social history reviewed E&M revi ewed - no changes required Sundeep Cason MD smoking status Current every day smoker Jimi Arora social history reviewed E&M revi ewed - no changes required Norman Miller MD drug use yes Norman Miller MD smoking/tobacco cess ation, patient education and counseling yes Norman Miller MD social history E&M Patient khadra ntly smokes sometimes. D rug Use - yes, meth last used 11/04/18, trying to quit A lcohol Use - yes, last used two weeks ago, Smoking History: P atient currently smokes sometimes. P atient has been counseled to quit. Norman Miller MD Surgical History of - Tonsillectomy Surgical History of - Tonsillectomy Norman Miller MD smoking history, tot al pack/day 2 Estephania Duran cigarette use yes Estephania Stack smoking status current some day smoker Claudia Miller MD FAMILY HISTORY Family Member Condition Father Family History of CV A or Stroke: INSURANCE PROVIDERS Payer name Policy type / Coverage type Candido red libertarian ID [employer] [facility] Medicaid [id number] ADVANCE DIRECTIVES Name Date DISCUSSED - NO DECISION MADE TREATMENT PLAN Date Name Performer [id number], H is updated medication list for this problem includes: Furosemide 20 Mg Tablet (Furosemide) ..... Take 1 tablet by mouth once a day Spironolactone 25 Mg Tablet (Spironolactone) ..... Take 0.5 tablet by mouth once a day Entresto 24-26 Mg Tablet (Sacubitril-valsartan) ..... Take 1 tablet by mouth twice a day Coreg 12.5 Mg Tablet (Carvedilol) ..... Take 1 tablet by mouth twice daily David Villafana MD [id number],C,L VEF 20 % today O rders: 9 9215 HIGH 40-54min (CPT-33891) E KG (CPT-12775) S chedule Followup (*) C omplete Echo (21474) David Villafana MD [id number],C,p t reports that he has been making 'some destructive life choices'. he states that he is going into detox on Monday. He doesn't have any real CV issues or concerns. he denies any CP, SOB, dizziness, palpitations. encouraged pt to complete detox as planned. emphasis placed on the importance of continuing his cardiac meds. Nancy Willard NP [id number],C,denies any fu rther use Nancy Willard NP [id number],C,o besity, snoring, excessive daytime sleepiness. will check home sleep study Nancy Willard NP [id number],C,see above Maddie Willard NP [id number],C, B P today: 125/68 P rior BP: 147/132 (04/01/2022) Labs Reviewed: C reat: 1.24 (10/19/2019) C hol: 172 (10/19/2019) HDL: 67 (10/19/2019) His updated medication list for this problem includes: Furosemide 20 Mg Tablet (Furosemide) ..... Take 1 tablet by mouth once a day Coreg 12.5 Mg Tablet (Carvedilol) ..... 1 tablet twice a day Spironolactone 25 Mg Tablet (Spironolactone) ..... Take 0.5 tablet by mouth once a day Nancy Willard TELESALES REPRESENTATIVE [id number],C,see above #3 Nancy Willard NP [id number],C,E CHO 04/01/22 C ONCLUSIONS: 1 . Abnormal septal motion consistent with pacemaker or ICD implant . Moderate enlargement of left ventricular chamber. M ild concentric left ventricular hypertrophy. There is E to A wave reversal consistent with impaired LV relaxation. Left v entricular ejection fraction is measured at 20 %. 2 . The right atrium is normal in size. Linear artifact in right atrium suggestive of catheter, pacer lead, or ICD lead. 3 . There is non-specific thickening of the mitral valve leaflets. Mild mitral valve regurgitation. 4 . There is mild tricuspid regurgitation. IVC is normal in size with normal respiratory response. Estimated peak pulmonary a rtery systolic pressure is 24.0 mmHg. Nancy Willard TELESALES REPRESENTATIVE [id number],C,see above Maddie Willard TELESALES REPRESENTATIVE [id number],C, H is updated medication list for this problem includes: Entresto 24-26 Mg Oral Tablet (Sacubitril-valsartan) ..... One tab twice daily. stop losartan. Coreg 12.5 Mg Oral Tablet (Carvedilol) ..... One tab. twice daily Spironolactone 25 Mg Oral Tablet (Spironolactone) ..... Half a tablet a day Furosemide 20mg Tablets (Furosemide) ..... Take 1 tablet by mouth every day Henrry Glaser [id number],S, Henrry Cheung i [id number],C,B P is elevated but he states it normally controlled. BP today: 147/132 P rior BP: 158/100 (10/08/2020) Labs Reviewed: C reat: 1.24 (10/19/2019) C hol: 172 (10/19/2019) HDL: 67 (10/19/2019) Henrry Cheungi [id number],C, P rior BP: 158/100 (10/08/2020) Labs Reviewed: C reat: 1.24 (10/19/2019) C hol: 172 (10/19/2019) HDL: 67 (10/19/2019) [facility] [id number],C,Will recheck echo. [facility] [id number],C, S table. On Coreg, Losartan, Aldactone. [facility] [id number],C, O rders: Karol johnson No Charge (CPT-35723) David Villafana MD [id number],C, H is updated medication list for this problem includes: Coreg 12.5 Mg Oral Tablet (Carvedilol) ..... One tab. twice daily David Villafana MD [id number],S, David frank MD [id number],S, David frank MD Electrophysiology:Th is visit has been a part of the consistent, comprehensive, and ongoing management of the chronic medical condition(s) listed above for the patient. Echo today shows aortic diliatation, will check AAA us. BP today: 109/75 P rior BP: 109/69 (12/15/2023) Labs Reviewed: C reat: 1.24 (10/19/2019) C hol: 172 (10/19/2019) HDL: 67 (10/19/2019) LDL: 96 (10/19/2019) T (10/19/2019) His updated medication list for this problem includes: Carvedilol 12.5 Mg Tablet (Carvedilol) ..... Take 1 tablet by mouth twice a day Furosemide 20 Mg Tablet (Furosemide) ..... Take 1 tablet by mouth every day Spironolactone 25 Mg Tablet (Spironolactone) ..... Take 1/2 tablet by mouth once daily Henrry kianjimbo Electrophysiology:Echo was done today [facility]% [facility]Echo done toda y shows EF 20% [facility]:Th is visit has been a part of the consistent, comprehensive, and ongoing management of the chronic medical condition(s) listed above for the patient. BP today: 109/75 P rior BP: 109/69 (12/15/2023) Labs Reviewed: C reat: 1.24 (10/19/2019) C hol: 172 (10/19/2019) HDL: 67 (10/19/2019) LDL: 96 (10/19/2019) T (10/19/2019) His updated medication list for this problem includes: Carvedilol 12.5 Mg Tablet (Carvedilol) ..... Take 1 tablet by mouth twice a day Furosemide 20 Mg Tablet (Furosemide) ..... Take 1 tablet by mouth every day Spironolactone 25 Mg Tablet (Spironolactone) ..... Take 1/2 tablet by mouth once daily Henrry Alfredito Electrophysiology:Wi ll check DOMENICO and sensilase to rule out PAD. will send in levaquin 500 mg once daily for 10 days [facility]: T he Patient was reencouraged to stop smoking. [facility]:Suni navarro, given his foot pain and wound, will check DOMENICO and sensilase to rule out any PAD. H is updated medication list for this problem includes: Metformin (glucophage Xr) 500 Mg Tablet Extended Release 24 Hr (Metformin (glucophage xr)) ..... Take 1 tablet by mouth twice daily with meals Jardiance 10 Mg Tablet (Empagliflozin) ..... Take 1 tablet by mouth every day Henrry Glaser Surgery Clearance - see note Namrata Villafana MD Surgery Clearance - see note: O rders: P reop clearance, phn/internet/emr >5min (20746) David Villafana MD Surgery Clearance - see note: E xtensive review of the pertinent previous and curent labs , EKGs, cardiac tesing and imaging data was done by Dr. Ledy moscoso additional testing is needed cher martell fax clearance for procedure Attn: Ms. Hamm , Phone #[phone]. H is updated medication list for this problem includes: Carvedilol 12.5 Mg Tablet (Carvedilol) ..... Take 1 tablet by mouth twice a day Furosemide 20 Mg Tablet (Furosemide) ..... Take 1 tablet by mouth every day Spironolactone 25 Mg Tablet (Spironolactone) ..... Take 1/2 tablet by mouth once daily David Villafana MD Electrophysiology Edu Harveyty Electrophysiology Edu Harveyty Electrophysiology:He states that his Sx have improved Edu Nelson Electrophysiology: H is updated medication list for this problem includes: Spironolactone 25 Mg Tablet (Spironolactone) ..... Take 1/2 tablet by mouth once daily Furosemide 20 Mg Tablet (Furosemide) ..... Take 1 tablet by mouth once a day Coreg 12.5 Mg Tablet (Carvedilol) ..... Take 1 tablet by mouth twice a day BP today: 109/69 P rior BP: 114/76 (06/02/2023) & #13;Labs Reviewed: C reat: 1.24 (10/19/2019) C hol: 172 (10/19/2019) HDL: 67 (10/19/2019) LDL: 96 (10/19/2019) T (10/19/2019) Edu Leslie Electrophysiology:Th e Patient was reencouraged to stop smoking. Edu Nelson Electrophysiology:EF 20 on last echo Edu [place]is [place] Electrophysiology:ad ding SGLT-2 inhibitor H is updated medication list for this problem includes: Spironolactone 25 Mg Tablet (Spironolactone) ..... Take 1/2 tablet by mouth once a day Furosemide 20 Mg Tablet (Furosemide) ..... Take 1 tablet by mouth once a day Coreg 12.5 Mg Tablet (Carvedilol) ..... Take 1 tablet by mouth twice daily Edu Nelson Electrophysiology:la test EF 20% n otes improvement in energy Edu Nelson Electrophysiology: H is updated medication list for this problem includes: Spironolactone 25 Mg Tablet (Spironolactone) ..... Take 1/2 tablet by mouth once a day Furosemide 20 Mg Tablet (Furosemide) ..... Take 1 tablet by mouth once a day Coreg 12.5 Mg Tablet (Carvedilol) ..... Take 1 tablet by mouth twice daily BP today: 114/76 P rior BP: 130/86 (03/31/2023) & #13;Labs Reviewed: C reat: 1.24 (10/19/2019) C hol: 172 (10/19/2019) HDL: 67 (10/19/2019) LDL: 96 (10/19/2019) T (10/19/2019) Edu Nelson Electrophysiology: H is updated medication list for this problem includes: Furosemide 20 Mg Tablet (Furosemide) ..... Take 1 tablet by mouth once a day Spironolactone 25 Mg Tablet (Spironolactone) ..... Take 0.5 tablet by mouth once a day Entresto 24-26 Mg Tablet (Sacubitril-valsartan) ..... Take 1 tablet by mouth twice a day Coreg 12.5 Mg Tablet (Carvedilol) ..... Take 1 tablet by mouth twice daily David Villafana MD Electrophysiology:LV EF 20 % today O rders: 9 9215 HIGH 40-54min (CPT-54017) E KG (CPT-60630) S chedule Followup (*) C omplete Echo (35090) David Villafana MD Electrophysiology:pt reports that he has been making 'some destructive life choices'. he states that he is going into detox on Monday. He doesn't have any real CV issues or concerns. he denies any CP, SOB, dizziness, palpitations. encouraged pt to complete detox as planned. emphasis placed on the importance of continuing his cardiac meds. Nancy Hastingsizabella GALICIA Cardiology:denies any further us e Nancy Montse GALICIA Cardiology:obesity, snoring, excessive daytime sleepiness. will check home sleep study Nancy Hastingsizabella GALICIA Cardiology:see above Nancy Fe brandi GALICIA Cardiology: B P today: 125/68 P rior BP: 147/132 (04/01/2022) Labs Reviewed: C reat: 1.24 (10/19/2019) C hol: 172 (10/19/2019) HDL: 67 (10/19/2019) His updated medication list for this problem includes: Furosemide 20 Mg Tablet (Furosemide) ..... Take 1 tablet by mouth once a day Coreg 12.5 Mg Tablet (Carvedilol) ..... 1 tablet twice a day Spironolactone 25 Mg Tablet (Spironolactone) ..... Take 0.5 tablet by mouth once a day Nancy Willard NP Cardiology:see above #3 Nancy Fenizabella GALICIA Cardiology:ECHO 04/01 C ONCLUSIONS: 1 . Abnormal septal motion consistent with pacemaker or ICD implant . Moderate enlargement of left ventricular chamber. M ild concentric left ventricular hypertrophy. There is E to A wave reversal consistent with impaired LV relaxation. Left v entricular ejection fraction is measured at 20 %. 2 . The right atrium is normal in size. Linear artifact in right atrium suggestive of catheter, pacer lead, or ICD lead. 3 . There is non-specific thickening of the mitral valve leaflets. Mild mitral valve regurgitation. 4 . There is mild tricuspid regurgitation. IVC is normal in size with normal respiratory response. Estimated peak pulmonary a rtery systolic pressure is 24.0 mmHg. Nancy Willard NP Cardiology:see above Nancy paz NP Electrophysiology: H is updated medication list for this problem includes: Entresto 24-26 Mg Oral Tablet (Sacubitril-valsartan) ..... One tab twice daily. stop losartan. Coreg 12.5 Mg Oral Tablet (Carvedilol) ..... One tab. twice daily Spironolactone 25 Mg Oral Tablet (Spironolactone) ..... Half a tablet a day Furosemide 20mg Tablets (Furosemide) ..... Take 1 tablet by mouth every day Henrry Glaser Electrophysiology Henrryagustin Glaser Electrophysiology:BP is elevated but he states it normally controlled. BP today: 147/132 P rior BP: 158/100 (10/08/2020) Labs Reviewed: C reat: 1.24 (10/19/2019) C hol: 172 (10/19/2019) HDL: 67 (10/19/2019) Henrry Glaser Electrophysiology: P rior BP: 158/100 (10/08/2020) Labs Reviewed: C reat: 1.24 (10/19/2019) C hol: 172 (10/19/2019) HDL: 67 (10/19/2019) Henrry zain Electrophysiology:Will recheck e cho. Henrry zain Electrophysiology: S table. On Coreg, Losartan, Aldactone. Henrryagustin Glaser Electrophysiology: O rders: Karol johnson No Charge (CPT-93206) David Villafana MD Electrophysiology: H is updated medication list for this problem includes: Coreg 12.5 Mg Oral Tablet (Carvedilol) ..... One tab. twice daily David Villafana MD Electrophysiology David salcedo MD Electrophysiology David salcedo MD needs to stop losart an and start entresto 24/26 mg PO bid:EF unchanged on Coreg, Losartan, Aldactone. Would recommend BiV ICD with LV lead placement after pt is out of the intermediate. O rders: E KG (CPT-92025) C XR- PA/Lat (CPT-45700) C omplete Echo (CPT-25812) 9 9215 HIGH 40-54min (CPT-80382) David Villafana MD needs to stop losart an and start entresto 24/26 mg PO bid:Stable. On Coreg, Losartan, Aldactone. O rders: 9 9215 HIGH 40-54min (CPT-36341) His updated medication list for this problem includes: Coreg 12.5 Mg Oral Tablet (Carvedilol) ..... One tab. twice daily Spironolactone 25 Mg Oral Tablet (Spironolactone) ..... Half a tablet a day Furosemide 20mg Tablets (Furosemide) ..... Take 1 tablet by mouth every day Losartan 25mg Tablets (Losartan potassium) ..... Take 1 tablet by mouth every day David Villafana MD Electrophysiology Fo llow up :has been off of methamphetamines for at least a month due to being in intermediate [facility] for primary prevention of sudden cardiac . O rders: 9 9215 HIGH Complex (CPT-55583) David Villafana MD Electrophysiology Fo llow up :recheck echo today shows LVEF is less than 20%. echo 09/2019 CONCLUSIONS: 1 . Severe global left ventricular systolic hypokinesis. Left ventricular dyssynchrony is present. Normal left ventricular wall t hickness. Moderate enlargement of left ventricular chamber. restrictive physiology. Elevated LVEDP. 22.5. Left ventricular e jection fraction is measured at 15 %. 2 . There is mild to moderate enlargement of the left atrium. 3 . The mitral valve leaflets appear myxomatous. Moderate mitral valve regurgitation. The mitral valve regurgitation is e ccentric. 4 . Normal appearing tricuspid valve leaflets. There is mild tricuspid regurgitation. IVC is normal in size with normal r espiratory response. The RA pressure is estimated at 3.0 mmHg. Estimated peak pulmonary artery systolic pressure is 35.0 m mHg. E lectronically Signed By: David Anguiano 2 020-05-22 15:32:26 CDT David Villafana MD Electrophysiology Fo llow up : H is updated medication list for this problem includes: Coreg 12.5 Mg Oral Tablet (Carvedilol) ..... One tab. twice daily David Villafana MD Electrophysiology Fo llow up :Would recommend BiV ICD with LV lead placement. Orders: 9 9215 HIGH Complex (CPT-92683) David Villafana MD TeleHealth: H is updated medication list for this problem includes: Coreg 6.25 Mg Oral Tablet (Carvedilol) ..... One tab. twice daily- stop betoprolol , and double the dose of coreg from 3.125 mg po bid to 6.25 mg po bid David Villafana MD TeleHealth David zhang MD TeleHealth: H is updated medication list for this problem includes: Coreg 6.25 Mg Oral Tablet (Carvedilol) ..... One tab. twice daily- stop betoprolol , and double the dose of coreg from 3.125 mg po bid to 6.25 mg po bid David Villafana MD TeleHealth: T he patient is recommended to have ICD implanted. The risks and benefits have been discussed with the patient in this shared decision making encounter. A copy of the following evidence based decision tool on ICD has been given to the patient. [email or web address]-content/[email or web address] [email or web address] Pt has been wearing life vest. severe dyssynchrony, mildly prolonged QRS of more than 162ms. David Villafana MD Cardiology:ECHO CONC LUSIONS: 1 . Severe global left ventricular systolic hypokinesis. Left ventricular dyssynchrony is present. Normal left ventricular wall t hickness. Moderate enlargement of left ventricular chamber. restrictive physiology. Elevated LVEDP. 22.5. Left ventricular e jection fraction is measured at 15 %. 2 . There is mild to moderate enlargement of the left atrium. 3 . The mitral valve leaflets appear myxomatous. Moderate mitral valve regurgitation. The mitral valve regurgitation is e ccentric. 4 . Normal appearing tricuspid valve leaflets. There is mild tricuspid regurgitation. IVC is normal in size with normal r espiratory response. The RA pressure is estimated at 3.0 mmHg. Estimated peak pulmonary artery systolic pressure is 35.0 m mHg. & #13;His updated medication list for this problem includes: Coreg 6.25 Mg Oral Tablet (Carvedilol) ..... One tab. twice daily- stop betoprolol , and double the dose of coreg from 3.125 mg po bid to 6.25 mg po bid [facility] Cardiology:The patie nt is recommended to have ICD implanted. The risks and benefits have been discussed with the patient in this shared decision making encounter. A copy of the following evidence based decision tool on ICD has been given to the patient. [email or web address]-content/[email or web address] 11/[email or web address] Pt has been wearing life vest. severe dyssynchrony, mildly prolonged QRS of more than 162ms. [facility] Cardiology: H is updated medication list for this problem includes: Coreg 6.25 Mg Oral Tablet (Carvedilol) ..... One tab. twice daily- stop betoprolol , and double the dose of coreg from 3.125 mg po bid to 6.25 mg po bid [facility] Cardiology: H is updated medication list for this problem includes: Coreg 6.25 Mg Oral Tablet (Carvedilol) ..... One tab. twice daily- stop betoprolol , and double the dose of coreg from 3.125 mg po bid to 6.25 mg po bid [facility] Cardiology [facility] Electrophysiology fo llow up : H is updated medication list for this problem includes: Metoprolol Succinate Er 25 Mg Oral Tablet Extended Release 24 Hour (Metoprolol succinate) ..... One tab daily [facility] Electrophysiology fo llow up : H is updated medication list for this problem includes: Metoprolol Succinate Er 25 Mg Oral Tablet Extended Release 24 Hour (Metoprolol succinate) ..... One tab daily Orders: E KG (CPT-85590) [facility] Electrophysiology fo llow up :Conclusions: 1 . Severe global left ventricular systolic hypokinesis. Left ventricular dyssynchrony is present. Mild enlargement of left v entricular chamber. Normal wall thickness. Left ventricular ejection fraction is measured at 10 %. 2 . Mild enlargement of right ventricle. Moderate right ventricular hypokinesis. 3 . There is non-specific thickening of the mitral valve leaflets. Severe mitral valve regurgitation. 4 . There is non-specific thickening of the tricuspid valve. There is moderate tricuspid regurgitation. IVC is normal in size with n ormal respiratory response. Estimated peak pulmonary artery systolic pressure is 40.0 mmHg. Mann Matias Electrophysiology fo llow up :Would recommend ICD. Could be subQ device if the pt would like to have it. Mann Florencio Electrophysiology follow up Fco Matias Electrophysiology follow up Fco peterson Florencio Electrophysiology follow up Fco peterson Florencio Electrophysiology follow up Fco peterson Florencio Electrophysiology fo llow up :Would recommend ICD. Coukd be subQ device if the pt would like to have it. Mann Florencio Electrophysiology fo llow up : H is updated medication list for this problem includes: Metoprolol Succinate Er 25 Mg Oral Tablet Extended Release 24 Hour (Metoprolol succinate) ..... One tab daily Mann Matias EP follow up- faxed per pt request to [phone]:Will order ProBNP, CMP, and recheck echo. Currently wearing LifeVest. Echo 12/13/2018 Conclusions: 1 . Septal `bounce` consistent with bundle branch block. Severe global left ventricular systolic h ypokinesis. Left ventricular dyssynchrony is present. Normal left ventricular wall thickness. No t hrombus visualized. Mild enlargement of left ventricular chamber. E to A ratio is consistent with r estrictive physiology. Abnormal E/E`, suggestive of elevated LVEDP. 31.4. Left ventricular ejection f raction is estimated at 10 %. 2 . There is non-specific thickening of the mitral valve leaflets. Severe mitral valve regurgitation. The m itral valve regurgitation is eccentric. NUC Stress 01/01/2019 S ummary 1 . Indeterminate myocardial perfusion imaging after vasodilator stress with Regadenoson. 2 . Severe global hypokinesis with a calculated ejection fraction of 8%. 3 . Diffuse patchy defects without anatomical coronary corelation consistent with a cardiomuopathy. This study does not exclude CAD. Artur Melara EP follow up- faxed per pt request to [phone]:Reports continued drug abuse. Artur Melara EP follow up- faxed per pt request to [phone]:Will order ProBNP, CMP, and recheck echo Echo 12/13/2018 Conclusions: 1 . Septal `bounce` consistent with bundle branch block. Severe global left ventricular systolic h ypokinesis. Left ventricular dyssynchrony is present. Normal left ventricular wall thickness. No t hrombus visualized. Mild enlargement of left ventricular chamber. E to A ratio is consistent with r estrictive physiology. Abnormal E/E`, suggestive of elevated LVEDP. 31.4. Left ventricular ejection f raction is estimated at 10 %. 2 . There is non-specific thickening of the mitral valve leaflets. Severe mitral valve regurgitation. The m itral valve regurgitation is eccentric. NUC Stress 01/01/2019 S ummary 1 . Indeterminate myocardial perfusion imaging after vasodilator stress with Regadenoson. 2 . Severe global hypokinesis with a calculated ejection fraction of 8%. 3 . Diffuse patchy defects without anatomical coronary corelation consistent with a cardiomuopathy. This study does not exclude CAD. Artur Melara EP follow up- faxed per pt request to [phone]:Per 12/13/2018 echo: Septal `bounce` consistent with bundle branch block. Severe global left ventricular systolic h ypokinesis. Left ventricular dyssynchrony is present. Normal left ventricular wall thickness. No t hrombus visualized. Mild enlargement of left ventricular chamber. E to A ratio is consistent with r estrictive physiology. Abnormal E/E`, suggestive of elevated LVEDP. 31.4. Left ventricular ejection f raction is estimated at 10 %. Artur Melara Cardiology: c heck stress test Sundeep Cason MD Cardiology:Echo 12/13 1 . Septal `bounce` consistent with bundle branch block. Severe global left ventricular systolic h ypokinesis. Left ventricular dyssynchrony is present. Normal left ventricular wall thickness. No t hrombus visualized. Mild enlargement of left ventricular chamber. E to A ratio is consistent with r estrictive physiology. Abnormal E/E`, suggestive of elevated LVEDP. 31.4. Left ventricular ejection f raction is estimated at 10 %. 2 . There is non-specific thickening of the mitral valve leaflets. Severe mitral valve regurgitation. The m itral valve regurgitation is eccentric. Sundeep Cason MD Cardiology: c ounseled to quit Sundeep Cason MD Cardiology:Left Vent ricle: S eptal `bounce` consistent with bundle branch block. Severe global left ventricular systolic h ypokinesis. Left ventricular dyssynchrony is present. Normal left ventricular wall thickness. No thrombus v isualized. Mild enlargement of left ventricular chamber. E to A ratio is consistent with restrictive p hysiology. Abnormal E/E`, suggestive of elevated LVEDP. 31.4. Left ventricular ejection fraction is e stimated at 10 %. Sundeep Cason MD Cardiology: U se of meth, marijuana, speed T rying to quit Sundeep Cason MD Cardiology:Use of me th T rying to quit Norman Miller MD Cardiology: Yesterda y, he had stoamch pains that moved up to substernal chest. Reports palpitations everyday lasting 20-30 minutes. Denies associated dizzines with palpitations. chris Miller MD Cardiology: Reports stomach pain before and/or after meals for the last 3 weeks. Not usually nauseous with stomach pain although did vomit yesterday. Yesterday, he had stoamch pains that moved up to substernal chest. Also, reports a lot of belching, gas, and indigestion. Norman Miller MD Cardiology: initial evaluation due to an abnormal EKG during evaluation for abdominal pain at [facility] chris Miller MD Cardiology: initial evaluation due to an abnormal EKG during evaluation for abdominal pain at [facility] Norman Miller MD Date Name Aorta Duplex Ultraso und Arterial - SENSILASE Arterial Duplex Bi-L ower EX Complete Echo Pacemaker Check Complete Echo EKG Complete Echo MAGNESIUM CBC (H/H, RBC, INDIC ES, WBC, PLT) LIPID PANEL COMPREHENSIVE METABO LIC PANEL, W/EGFR Sleep Study Home Complete Echo EKG EKG PROTHROMBIN TIME WIT H INR Partial Thromboplast in Time, Activated CBC (INCLUDES DIFF/P LT) COMPREHENSIVE METABO LIC PANEL, W/EGFR CXR- PA/Lat Complete Echo Complete Echo LIPID PANEL PARTIAL THROMBOPLAST IN TIME, ACTIVATED URINALYSIS, COMPLETE W/REFLEX TO CULTURE COMPREHENSIVE METABO LIC PANEL W/EGFR PROTHROMBIN TIME WIT H INR CBC (INCLUDES DIFF/P LT) BI-V AICD Implant - [facility] Complete Echo Bi-V AICD Implant - [facility] Complete Echo Complete Echo COMPREHENSIVE METABO LIC PANEL, W/EGFR PROBNP, N TERMINAL HEMOGLOBIN A1c BASIC METABOLIC PANE L W/EGFR PROBNP, N TERMINAL LIPID PANEL LIPID PANEL PROBNP, N TERMINAL BASIC METABOLIC PANE L W/EGFR Stress Regadenoson Complete Echo Preop clearance, phn /internet/emr >5min HISTORY OF PROCEDURES Procedure Date Procedure Name Provider Procedure Notes S tatus EKG David zhang MD completed EKG David zhang MD completed Schedule Followup David salcedo MD Please schedule a follow-up appointment with me in 1 year and bring all medication bottles with you. completed Schedule Followup David salcedo MD in 6 months completed EKG David zhang MD completed Schedule Followup David salcedo MD [address] VILLAFANA completed EKG David zhang MD completed EKG David zhang MD completed EKG David zhang MD completed Device Check - Life vest David Villafana MD completed EKG David zhang MD completed EKG David zhang MD completed Device Check - Life vest Norman Miller MD completed EKG David zhang MD completed Schedule Followup David salcedo MD f/u 03/15/2019 completed EKG David zhang MD completed Regadenoson, 4 units Norman Miller MD completed Cardiolite, 2 units Norman Miller MD c ompleted SPECT Images Norman Miller MD complete d Stress EKG Norman Miller MD completed EKG Norman Miller MD completed
--- OUTSIDE RECORDS SUMMARY | 2024-08-30 13:35 | XMS_ITS ---
Author Organization [facility] Address [address] [place] [address] Care Team Providers Care Press Secretary Name Role Phone Jerica Boss Primary Care Provider nanoRETE, [facility] Unavailable U Sagar Dodge Unavailable [phone] Allergies Allergen (clinical drug ingredient) Drug/Non Drug Allergy documented on EMR Reaction Allergy Type Onset Date Status penicillin (uncoded) hives Allergy Active Results Component Value Reference Range Notes 12 Panel Urine Drug Screen Reviewed date:08/28/2024 11:49:15 AM Interpretation: Performing Lab: Notes/Report: THC neg ZAYRA neg MOP (OPI) neg AMP POS MET POS BAR neg BZO neg MDMA neg MTD neg OXY neg PCP neg BUP neg Breathalyzer Reviewed date:08/28/2024 11:48:37 AM Interpretation:0.000 Performing Lab: Notes/Report: 0.000 FLAVIA 0.000 REASON FOR VISIT DETOX: METH Medications Medication SIG (Take, Route, Fr equency, Duration) Notes Start Date End Date Status Entresto 24-26 MG 1 tablet Orally Twic e a day for 30 day(s) Active Jardiance 10 MG 1 tablet Orally Once a day for 30 day(s) Active Furosemide 20 MG 1 tablet Orally Once a day for 30 day(s) Active Spironolactone 25 MG 1 tablet Orally Active Simvastatin 40 MG 1 tablet in the even ing Orally Once a day for 30 day(s) Active carBAMazepine 200 MG 1 tablet Orally Twice a day Active Thiamine HCl 100 MG 1 tablet Orally Once a day Active Carvedilol 12.5 MG 1 tablet with food O rally Twice a day for 30 day(s) Active Baclofen 10 MG 1 tablet as needed O rally Twice a day Active Digoxin 125 MCG 1 tablet Orally for 30 day(s) Active Multivitamin Adults - Orally Active Folic Acid 1 MG 1 tablet Orally Once a day Active Social History Tobacco Use: Social History Observation Description Date Details (start date - stop date) Never Smoker NA - NA Tobacco Control (Standard) Question Answer Notes Tobacco use: Nonsmoker Problems Problem Type SNOMED Code ICD Code Onset Dates Problem Status W/U Status Risk Notes Problem Overweight (827949619) Over weight (E66.3) Active confirmed Vital Signs Weight 177.2 lbs 08/28/2024 BMI 28.6 kg/m2 08/28/2024 Height 66 in 08/28/2024 Blood pressure systolic 110 mm Hg 08/29/19 25 Blood pressure diastolic 72 mm Hg 025 Heart Rate 91 /min 08/28/2024 Oximetry 96 % 08/28/2024 Temperature 98.0 degrees Fahrenheit 08/29/19 25 Respiratory Rate 16 /min 08/28/2024 Encounters Encounter Location Date Provider Diagnosis [facility] [address] [place] [address] 08/28/2024 Sagar Meneses Routine general medical examination at a health care facility Z00.00 ; Tuberculosis screening Z11.1 and Over weight E66.3 Assessments Encounter Date Diagnosis (ICD Code) Assessment Notes Treatment Notes Treatment Clinical Notes Section Notes 08/28/2024 Routine general medical examination at a health care facility (ICD-10 - Z00.00) Stable for admission. Continue CRU protocol. Encouraged regular f/u with PCP for recommended screenings and physicals. 08/28/2024 Tuberculosis screening (ICD-10 - Z11.1) 08/28/2024 Over weight (ICD-10 - E66.3) Plan Of Treatment Treatment Notes Assessment Notes Routine general medical exam ination at a health care facility Stable for admission. Continue CRU protocol. Encouraged regular f/u with PCP for recommended screenings and physicals. Pending Test Test Name Order Date HIV Screen *HIV 1, 2 Ab, p24 Ag ([id number]) 08/28/2024 Phosphorus, Serum* 08/28/2024 Magnesium, Serum* 08/28/2024 CBC With Differential/Platelet* 08/29/19 25 CMP 14 Comprehensive Metabolic Panel* QuantiFERON-TB Gold Plus ([id number]) 2024 Next Appt Details Follow Up: prn, Reason: Provider Name:Radha Pendleton chapo, 09/03/2024 09:00:00 AM, [address] [place] [address], [id number], Progress Notes * Taye WHITAKERDOB: [birth year] (54 yo M)Acc No.[id number]:08/28/2024 Patient: Taye DILLARD Provider: Torie Meneses, MSN, SERVICE DIRECTOR, TRADE MANAGER-C :1970 A ge:54 Y S ex:Male Date:08/28/2024 Address:[address] [place] [address] Pcp:Jerica Boss Check In:11:05 AM 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 Wish to be : Have you wished you were or wished you could go to sleep and not wake up? N o 2 . Suicidal Thoughts: Have you actually had any thoughts of killing yourself? N o 6 . Suicide Behavior Question: Have you ever done anything,started to do anything, or prepared to end your life? N o I nterpretation: L ow Risk D epression Screening: PHQ-9 L ittle interest or pleasure in doing things?Several days F eeling down, depressed, or hopeless S everal days T rouble falling or staying asleep, or sleeping too much S everal days F eeling tired or having little energy N ot at all P oor appetite or overeating S everal days F eeling bad about yourself or that you are a failure, or have let yourself or your family down S everal days T rouble concentrating on things, such as reading the newspaper or watching television N ot at all M oving or speaking so slowly that other people could have noticed; or the opposite, being so fidgety or restless that you have been moving around a lot more than usual M ore than half the days T houghts that you would be better off or of hurting yourself in some way N ot at all T otal Score 7 I nterpretation M ild Depression D epression Screening PHQ9: c/o PHQ-2 (2015 Edition). PHQ9 D epression Screening Finding P ositive F ollow-up Depression W arm hand-off to staff C SSRS Interpretation and Follow Up Plan: CSSRS Interpretation and Follow Up Plan C SSRS Screen documented using SF Y es R isk Disposition from SF L ow - No Follow Up Plan Required F ollow Up Plan N o Follow Up Plan required at this time. T imeframe of Screening T charlene P re[facility] Wellness follow-up: . S noe: Mr. Whitaker presents for a routine physical to be admitted to the CRU for detox services. Drug of choice: methamphetamines and reports using $20-30 intranasally daily. Last use on 08/27/2024 in the evening. Reports drinking alcohol 2-3 times per week but reports not in excess. PCP: Dr. Zully Sorensen Director Content Marketing: Dr. Villafana. * ROS: B asic ROS: Denies W eight loss or gain. D enies C hange in appetite. I nsomnia D enies. D enies A nxiety. D enies D epressed Mood. D enies S uicidal Thoughts. * Medical History: * Surgical History: f morgan bone have a plate right 1983 * Hospitalization/Major Diagno stic Procedure: D enies Past Hospitalization * Family History: F ather: 54 yrs, diagnosed with Diabetes mellitus without mention of complication, type II or unspecified type, not stated as uncontrolled. M other: alive 76 yrs. 1 brother(s) , 1 sister(s) . . Father- stroke 1985 Sister Heart disease. * Social History: P rimary Social History: L iving Arrangement L iving Arrangement: I ndependent Living Single Question Alcohol Screening H ow may times in the past year have you had (4 for women, or 5 for men) or more drinks in a day? 1 T obacco Use: T obacco Control (Standard) T obacco use: N onsmoker * Medications: T akingSpironolactone 25 MG Tablet 1 tablet Orally Multivitamin Adults - Tablet Orally Folic Acid 1 MG Tablet 1 tablet Orally Once a day Thiamine HCl 100 MG Tablet 1 tablet Orally Once a day carBAMazepine 200 MG Tablet 1 tablet Orally Twice a day Baclofen 10 MG Tablet 1 tablet as needed Orally Twice a day Carvedilol 12.5 MG Tablet 1 tablet with food Orally Twice a day Digoxin 125 MCG Tablet 1 tablet Orally Entresto 24- 26 MG Tablet 1 tablet Orally Twice a day Furosemide 20 MG Tablet 1 tablet Orally Once a day Jardiance 10 MG Tablet 1 tablet Orally Once a day Simvastatin 40 MG Tablet 1 tablet in the evening Orally Once a day Medication List reviewed and reconciled with the patientTaking Spironolactone 25 MG Tablet 1 tablet Orally Taking Multivitamin Adults - Tablet Orally Taking Folic Acid 1 MG Tablet 1 tablet Orally Once a day Taking Thiamine HCl 100 MG Tablet 1 tablet Orally Once a day Taking carBAMazepine 200 MG Tablet 1 tablet Orally Twice a day Taking Baclofen 10 MG Tablet 1 tablet as needed Orally Twice a day Taking Carvedilol 12.5 MG Tablet 1 tablet with food Orally Twice a day Taking Digoxin 125 MCG Tablet 1 tablet Orally Taking Entresto 24-26 MG Tablet 1 tablet Orally Twice a day Taking Furosemide 20 MG Tablet 1 tablet Orally Once a day Taking Jardiance 10 MG Tablet 1 tablet Orally Once a day Taking Simvastatin 40 MG Tablet 1 tablet in the evening Orally Once a day Medication List reviewed and reconciled with the patient * Allergies: p enicillin: hives - Allergyno[Allergies Verified] Objective: * Vitals: I nitials:TT, Wt:177.2, Ht:66, BMI:28.6, BP:110/72, HR:91, Oxygen sat %:96, Temp:98.0, RR:16, Pain scale:0. * Examination: A ctivity Permissions and Medication Self Administration: Activity Level & Medication Self-Administration Permissions? A ctivity Level Permitted: T he patient/client may fully take part in physical fitness programming including aerobic, muscular strength, and flexibility training without restriction. M edication Self-Administration Permissions:?Medications may be self-administered by the patient/client under the supervision of approved staff or administered by nursing staff. G eneral Examination: GENERAL APPEARANCE: p leasant, in no acute distress, nods off occasionally during appointment but easily arousable. HEAD: n ormocephalic, atraumatic. EYES: P ERRLA. EARS B OTH EARS, auditory canal clear, tympanic membrane intact, clear, light reflex present. NOSE: n omari patent, no lesions. NECK/THYROID: R DAMIEN. SKIN: w arm and dry, no rashes, good turgor. HEART: r egular rate and rhythm, S1, S2 normal. LUNGS: r espirations regular and easy, clear to auscultation bilaterally. ABDOMEN: b owel sounds present, soft, nontender, nondistended, no masses palpable. MUSCULOSKELETAL: R DAMIEN upper and lower extremities. EXTREMITIES: n o edema. PERIPHERAL PULSES: n ormal. NEUROLOGIC: g ait normal. PSYCH: s peech clear, poor eye contact, cooperative with exam, thought process logical, goal directed, alert, oriented x4. Assessment: * Assessment: 1. T uberculosis screening - Z11.1 2 . R outine general medical examination at a health care facility - Z00.00 (Primary) 3 . O zena weight - E66.3 ? Plan: * Treatment: Value Reference Range B AC 0.000 ?LAB: 12 Panel Urine Drug Screen (Collection Date & Time - 08/28/2024 11:49 AM)* Value Reference Range T HC neg * C OC neg * M OP (OPI) neg * A MP POS * M ET POS * B AR neg * B ZO neg * M DMA neg * M TD neg * O XY neg * P CP neg * B UP neg ?LAB: HIV Screen *HIV 1, 2 Ab, p24 Ag ([id number]) (Collection Date & Time - 08/28/2024 11:50 AM) ?LAB: Phosphorus, Serum* (Collection Date & Time - 08/28/2024 11:50 AM) ?LAB: Magnesium, Serum* (Collection Date & Time - 08/28/2024 11:50 AM) ?LAB: CBC With Differential/Platelet* (Collection Date & Time - 08/28/2024 11:50 AM) ?LAB: CMP 14 Comprehensive Metabolic Panel* (Collection Date & Time - 08/28/2024 11:50 AM) Notes: Stable for admission. Continue CRU protocol. Encouraged regular f/u with PCP for recommended screenings and physicals.?? 2.?Tuberculosis screening?LAB: QuantiFERON-TB Gold Plus ([id number]) (Collection Date & Time - 08/28/2024 11:50 AM) * Recommended Wellness and Pre vention Guidelines: * S tatus A lert L ast Done N ext Due A ction Taken N ONCOMPLIANT C holesterol screen (genl pop) 0 01/12/2018 0 08/28/2024 - N ONCOMPLIANT C olorectal cancer screening - 0 08/28/2024 - * Procedure Codes: 9 9000 SPECIMEN [id number] BODY MASS INDEX [id number] TB TEST, CELL IMMUN MEASURE * Preventive Medicine: Counseling: C are goal follow-up plan: BMI management provided Y es Above Normal BMI Follow-up L ifestyle education regarding diet * Follow Up: p rn * * Sign off status: Completed true * Provider: Torie Meneses, MSN, SERVICE DIRECTOR, TRADE MANAGER-C Date: 0 08/28/2024 Generated for Flo germain/Angelica/eTransmitting on: 0 08/30/2024 01:34 PM CDT History and Physical Notes * HPI (History of Present Illness) Category Sub-Category Detail Notes Category Not es Depression Screening PHQ9 PHQ9 Depres roseline Screening Finding: Positive Follow-up Depression: Warm hand-off to B [facility] staff Depression Screening PHQ-9 Little inte rest or pleasure in doing things: Several days Feeling down, depressed, or hopeless: Se veral days Trouble falling or staying asleep, or sl eeping too much: Several days Feeling tired or having little energy: N ot at all Poor appetite or overeating: Several day s Feeling bad about yourself o r that you are a failure, or have let yourself or your family down: Several days Trouble concentrating on thi ngs, such as reading the newspaper or watching television: Not at all Moving or speaking so slowly that other people could have noticed; or the opposite, being so fidgety or restless that you have been moving around a lot more than usual: More than half the days Thoughts that you would be b matt off or of hurting yourself in some way: Not at all Total Score: 7 Interpretation: Mild Depression Summary Mr. Whitaker presents for a routine physical to be admitted to the CRU for detox services. Drug of choice: methamphetamines and reports using $20-30 intranasally daily. Last use on 08/27/2024 in the evening. Reports drinking alcohol 2-3 times per week but reports not in excess. PCP: Dr. Zully Sorensen Director Content Marketing: Dr. Villafana Screening [place] Suicide Severity Rating Scale (LF) Do you want to initiate with: Screener form 1. Wish to be : Have you wished you were or wished you could go to sleep and not wake up?: No 2. Suicidal Thoughts: Have you actually had any thoughts of killing yourself?: No 6. Suicide Behavior Question: Have you ever done anything,started to do anything, or prepared to end your life?: No Interpretation:: Low Risk [facility] Wellness follow-up . CSSRS Interpretation and Follow Up Plan CSSRS Interpretation and Follow Up Plan CSSRS Screen documented using SF: Yes Risk Disposition from SF: Low - No Follo w Up Plan Required Follow Up Plan: No Follow Up Plan requir ed at this time. Timeframe of Screening: Today Examination Category Sub-Category Detail Notes Category Not es General Examination GENERAL APPEARANCE: pleasant , in no acute distress, nods off occasionally during appointment but easily arousable HEAD: normocephalic, atrau matic EYES: PERRLA EARS BOTH EARS, auditory canal clear, tympanic membrane intact, clear, light reflex present NOSE: nares patent, no les ions NECK/THYROID: LORIE HEART: regular rate and rhy thm, S1, S2 normal LUNGS: respirations regular and easy, clear to auscultation bilaterally ABDOMEN: bowel sounds present , soft, nontender, nondistended, no masses palpable NEUROLOGIC: gait normal SKIN: warm and dry, no mira hes, good turgor EXTREMITIES: no edema PERIPHERAL PULSES: normal MUSCULOSKELETAL: LORIE upper and lower extremities PSYCH: speech clear, poor e ye contact, cooperative with exam, thought process logical, goal directed, alert, oriented x4 Activity Permissions and Medication Self Administration Activity Level & Medication Self-Administration Permissions Activity Level Permitted:: The patient/client may fully take part in physical fitness programming including aerobic, muscular strength, and flexibility training without restriction. Medication Self-Administrati on Permissions:: Medications may be self- administered by the patient/client under the supervision of approved staff or administered by nursing staff.
--- OUTSIDE RECORDS SUMMARY | 2024-08-30 13:35 | XMS_ITS | Clinical Summary ---
Author Organization [facility] Address [address] [place] [address] Care Team Providers Care Service Administrator Name Role Phone Melquiades Hauser MD Primary Care Provider [phone] Source Comments [facility],non-owned Affiliates and Associated Physician Practices is amultiple site organization consisting of ambulatory clinics and hospital sitesin [place], [place] and [place]. This disclosure is being madepursuant to the Care Everywhere program and may not contain all information available regarding this patient. Last updated 18.[facility] Allergies Active Allergy Reactions Criticality Noted Date Comments Penicillins Rash Medium 08/16/2018 Medications * Be aware that medications may not be up to date on this document. Alwaysverify current medications with the patient. Medication Sig Dispensed Refills Start Date End Date Status omeprazole (PRILOSEC) 20 MG capsule Take 20 mg by mouth once daily Active Active Problems No known active problems Social History Tobacco Use Types Packs/Day Years Used Date Smoking Tobacco: Former Smokeless Tobacco: Never Sex and Gender Information Value Date Recorded Sex Assigned at Not on file Gender Identity Not on file Sexual Orientation Not on file Last Filed Vital Signs Vital Sign Reading Time Taken Comments Blood Pressure - - Pulse - - Temperature - - Respiratory Rate - - Oxygen Saturation - - Inhaled Oxygen Concentration - - Weight 75.3 kg (166 lb) 10/26/2018 2:53 PM CDT per previous documentation Height 167.6 cm (5' 6 ) 10/26/2018 2:53 PM CDT Body Mass Index 26.79 10/26/2018 2:53 PM CDT Plan of Treatment Health Maintenance Due Date Last Done Comments COLOGUARD (AGES 45-75) - COL ON CA SCREENING 1970 COLON MONITORING 1970 COLONOSCOPY - COLON CA SCREENING 1970 CT COLONOGRAPHY - COLON CA SCREENING 1970 Colorectal Cancer Screening 1970 FIT - COLON CA SCREENING 1970 FLEX SIG - COLON CA SCREENING 1970 LIPID TESTING 1970 HIV SCREENING 1985 HEPATITIS C SCREENING 08/05/1988 DTAP/TDAP/TD VACCINES (1 - Tdap) 1989 HEPATITIS B VACCINE (1 of 3 - 19+ 3-dose series) 1989 SCREENING FOR DIABETES 08/16/2018 PNEUMOCOCCAL VACCINE 50+ (1 of 1 - PCV) 2020 ZOSTER VACCINE (1 of 2) 2020 COVID-19 VACCINE (1 - 2023-2 5 season) 2024 INFLUENZA VACCINE (#1) 2024 DEPRESSION SCREENING 05/29/2024 HIB VACCINE Aged Out No longer eligi ble based on patient's age to complete this topic HPV VACCINE Aged Out No longer eligi ble based on patient's age to complete this topic MENINGOCOCCAL (Group B) VACC INE SHARED DECISION-MAKING Aged Out No longer eligibl e based on patient's age to complete this topic MENINGOCOCCAL GROUPS A/C/Y/W VACCINE Aged Out No longer eligible b ased on patient's age to complete this topic PNEUMOCOCCAL VACCINE Aged Out No long er eligible based on patient's age to complete this topic Care Teams Service Administrator Relationship Specialty Start Date End Date Melquiades Hauser MD [address] [place] [address] PCP - General 01/01/16
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
--- OUTSIDE RECORDS SUMMARY | 2024-08-30 13:35 | XMS_ITS | Encounter Summary ---
Author Organization [facility] Address [address] [place] [address] Phone Care Team Providers Care Customs Inspector Name Role Phone Zia Ordonez MD Primary Care Provider Reason for Referral * Radiology Services (Routine) - Closed Specialty Diagnoses / Procedures Referred By Contjuan miguel t Referred To Contact Radiology Diagnoses Pre-op testing Procedures EKG 12 LEAD Elsa Jeong DPM [address] [place] [address] Phone: tel: fax: Referral ID Status Reason Start Date Expiration Date Visits Re quested Visits Authorized [id number] Closed 06/20/2024 1 1 T SEALER Encounter Details Date Type Department Care Team (Latest Contact Info) Description 06/20/2024 Transcribe Orders [facility] Preop/Pacu II [address] [place] [address] Elsa Jeong DPM [address] [place] [address] Pre-op testing (Primary Dx) Social History Tobacco Use Types Packs/Day Years Used Date Smoking Tobacco: Former Cigarettes Smokeless Tobacco: Former Alcohol Use Standard Drinks/Week Comments Yes 0 (1 standard drink = 0.6 oz pur e alcohol) Sexually Active Control Partners Comments Yes Female Sex and Gender Information Value Date Recorded Sex Assigned at Not on file Legal Sex Male 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 Gender Identity Not on file Sexual Orientation Not on file documented as of this encounter Plan of Treatment Not on file documented as of this encounter Results * EKG 12 LEAD (07/01/2024 12:36 PM JOINT SEALER) Ventricular Rate 84 BPM EXTERNAL EKG Atrial Rate 84 BPM EXTERNAL EKG P-R Interval 158 ms EXTERNAL EKG QRS Duration 158 ms EXTERNAL EKG Q-T Duration 416 ms EXTERNAL EKG QTC CALCULATION 491 ms EXTERNAL EKG P [place] 7 degrees EXTERNAL EKG R [place] -66 degrees EXTERNAL EKG T [place] 89 degrees EXTERNAL EKG 07/01/2024 12:3 6 PM JOINT SEALER Impressions EXTERNAL EKG - 07/01/2024 4:10 PM JOINT SEALER Atrial-sensed ventricular-paced rhythm Abnormal ECG When compared with ECG of 25-JUL-2023 15:27, Vent. rate has increased BY 15 BPM Confirmed by Mushtaq Zurita ([id number]) on 07/01/2024 4:10:11 PM Narrative Procedure Note Mushtaq Zurita MD - 07/01/2024 IMPRESSION: Atrial-sensed ventricular-paced rhythm Abnormal ECG When compared with ECG of 25-JUL-2023 15:27, Vent. rate has increased BY 15 BPM Confirmed by Mushtaq Zurita ([id number]) on 07/01/2024 4:10:11 PM us Elsa Jeong DPM IMG ECG ORDERABLES Final Res ult EXTERNAL EKG documented in this encounter Visit Diagnoses Diagnosis Pre-op testing- Primary Preoperative examination, unspecified Pre-op testing Preoperative examination, unspecified documented in this encounter Care Teams Customs Inspector Relationship Specialty Start Date End Date Zia Ordonez MD PCP - General Obstetrics & Gynecology 06/16/24 documented as of this encounter
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
--- OUTSIDE RECORDS SUMMARY | 2024-08-30 13:35 | XMS_ITS ---
Author Organization [facility] Address [address] [place] [address] Care Team Providers Care Drafter Landscape Name Role Phone Jerica Boss Primary Care Provider [phone] [employer] [facility], [facility] Unavailable U Diamond Muhammad Unavailable [phone] REASON FOR VISIT Detox [facility] Medications Medication SIG (Take, Route, Frequency, Duration) Notes Start Date End Date Status Spironolactone 25 MG 1 tablet Orally Active Simvastatin 40 MG 1 tablet in the even ing Orally Once a day for 30 day(s) Active Ketorolac Tromethamine 30 MG/ML 1 ml as needed Injection now for 1 dose 03/02/2018 Active Jardiance 10 MG 1 tablet Orally Once a day for 30 day(s) Active Furosemide 20 MG 1 tablet Orally Once a day for 30 day(s) Active carBAMazepine 200 MG 1 tablet Orally Twi ce a day Active Carvedilol 12.5 MG 1 [...] 1 tablet Orally Once a day Active Thiamine HCl 100 MG [...] 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 Stress is when someone feels tense, nervous, anxious, or can\t sleep at night because their mind is troubled Not at all In the past year have you sp ent more than 2 nights in a row in a fci, mcc, long-term center, or juvenile correctional facility? No Are [...] (Standard) Question Answer Notes Tobacco use: Nonsmoker Encounters Encounter Location Date Provider Diagnosis [address] [address] 08/28/2024 Diamond Khan Assessments Encounter Date Diagnosis (ICD Code) Assessment Notes Treatment Notes Treatment Clinical Notes Section Notes 08/28/2024 Other Clinician met w ith client to assess needs for residential services. Clinician gathered information regarding historical presentation of mental health and substance use symptoms including withdrawal, HIV Risk assessment, psychiatric hospitalization history and presenting concern. Clinician conducted PHQ9 and CSSRS assessments as well as social drivers of health screening for the purposes of identifying additional service needs. Plan Of Treatment Treatment Notes Assessment Notes Other Clinician met with chris mena to assess needs for residential services. Clinician gathered information regarding historical presentation of mental health and substance use symptoms including withdrawal, HIV Risk assessment, psychiatric hospitalization history and presenting concern. Clinician conducted PHQ9 and CSSRS assessments as well as social drivers of health screening for the purposes of identifying additional service needs. Next Appt Details Provider Name:Radha cowan, 09/03/2024 09:00:00 AM, [address] [place] [address], [phone], Progress Notes * Taye WHITAKERDOB: 1 (54 yo M)Acc No.[id number]:08/28/2024 UNLOCKED PROGRESS NOTE Patient: Taye DILLARD Provider: Cedrick Khan :1970 A ge:54 Y S ex:Male Date:08/28/2024 Address:[address] [place] [address] Pcp:Jerica Boss Subjective: * Chief Complaints: * 1 . Detox aTBC. * HPI: S creening: [place] Suicide Severity Rating Scale (LF) D o you want to initiate with S creener form, 1 . Wish to be : Have you wished you were or wished you could go to sleep and not wake up? N o, 2 . Suicidal Thoughts: Have you actually had any thoughts of killing yourself? N o, 6 . Suicide Behavior Question: Have you ever done anything,started to do anything, or prepared to end your life? N o, I nterpretation: L ow Risk. D epression Screening: PHQ-9 L ittle interest or pleasure in doing things S everal days, F eeling down, depressed, or hopeless S everal days, T rouble falling or staying asleep, or sleeping too much S everal days, F eeling tired or having little energy N ot at all, P oor appetite or overeating S everal days, F eeling bad about yourself or that you are a failure, or have let yourself or your family down S everal days, T rouble concentrating on things, such as reading the newspaper or watching television N ot at all, M oving or speaking so slowly that other people could have noticed; or the opposite, being so fidgety or restless that you have been moving around a lot more than usual M ore than half the days, T houghts that you would be better off or of hurting yourself in some way N ot at all, T otal Score 7 , I nterpretation M ild Depression. D epression Screening PHQ9: c/o PHQ-2 (2015 Edition). PHQ9 D epression Screening Finding P ositive, F ollow-up Depression W arm hand-off to staff. C SSRS Interpretation and Follow Up Plan: CSSRS Interpretation and Follow Up Plan C SSRS Screen documented using SF Y es, R isk Disposition from SF L ow - No Follow Up Plan Required, F ollow Up Plan N o Follow Up Plan required at this time., T imeframe of Screening T charlene.? P sychiatric Assessment - Current Symptoms: Primary concern today x . O verview of Mental Health Symptoms W ants to work on anxiety: while living in sister's house gets distraught and it's hard.? S truggles with seeing things in home, see's images of sister in agony, had vision once. Helium ballon had face in it that scared client. See's ghost as described around house, has seen alien in clothing basket and was trying to speak with him but could not actually do so, client acknowledges this alien though was made out of clothing, he does believe it was still there. Has seen hien and forest doe while in bedroom.?. H istory of Psychiatric Hospitalizations t wo times over all, Yas: 2016 first, 2019. H istory of Psychiatric and Behavioral Health Treatment N A groups, found it helpful. No psych providers, Currently doing [facility] groups in [place] through [place]. ubstance Use: Current Use Patterns m ethaphetamine use: started at 25, using $30 at a time. Crack cociane: started but stopped 2021, addiction to that was terribly bad, would spend all money on it A lcohol: some, does not drink more than 3-4 beers at a time, last drink was Monday. C annabis: No cannabis use, last use was about a year ago. W ithdrawl: Cravings, irritatibiliy, stomach cramps, some diahrea. L ongest period of Sobriety was two years, [id number]. S ubstance of Choice x . H istory of substance use x . H x of Withdrawal?x. H IV Risk Assessment Screening: Sexual Risk Behaviors: 1 . Are you sexually active? (If no skip question 2) Y es, 2 . Do you engage in sexual activity without protection against STIs??Yes. H IV/AIDS/Hepatitis Risk Assessment 1 . Have you ever shared needles or equipment for injecting drugs, tattoos, or piercings with others? N o, 2 . Have you ever had unprotected sex with someone you think might be infected with an STI or HIV (such as someone who injected drugs, who was diagnoed with or treated for an STI or hepatitis, has had mulitiple sex partners, or who has exchanged sex for drugs or money)? N o, 3 . Have you ever had unprotected vaginal or anal intercourse with more than 1 sex partner? N o, 4 . Have you ever been diagnosed with or treated for an STI, hepatitis, or tuberculosis? N o, 5 . Have you ever had an unexplained fever or illness of unknown cause (not including the common cold)? N o, 6 . Have you ever been told that you have an infection related to a weak immune system ? N o, 7 . If YES to any of the above (including sexual risk behaviors), have you been tested in the past year for HIV/AIDS and/or Hepatitis C? N o (Testing should be offered) Encouraged HIV/AIDS and/or Hep C testing while in residential.. Required for Residential Admits. A ssessment of Social Determinants of Health::: Has A PRAPARE Been Completed In The Past Year? H as a PRAPARE Been Completed In The Past Year? Y es, W as It Completed Today Using SmartForm? N o.? a TBC For Substance Use Services: Who Is Your Primary Care Provider? D o You Have A Primary Care Provider? Y es [facility], D ate of last physical exam 0 -2024. D o You Have A Psychiatric Provider? D o You Have A Psychiatric Provider? N o est psych with [facility]. D o You Have Any Other Professional Supports? D o You Have Any Other Professional Supports Y es. C onsent Forms Completed C onsent Forms C onsent To Treat, Health Care Providers, Emergency Contact, Probation/Carlin. * Medical History: * Social History: S ocial Determinants: P ANDERSON D ate Completed/Updated: 0 09/04/2024, W hat is your current housing situation? I have housing, A re you worried about losing your housing? N o, W hat is the highest level of school that you have finished? H igh school diploma or GED, W hat is your current work situation? 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 Check all that apply I do not have problems meeting my needs, H as lack of transportation kept you from medical appointments, meetings, work or from getting things needed for daily living? N o, H ow often do you see or talk to people that you care about and feel close to? (For example: talking to friends on the phone, visiting friends or family, going to confucianism or club meetings) L ess than once a week, H ow stressed are you? Stress is when someone feels tense, nervous, anxious, or can\t sleep at night because their mind is troubled N ot at all, I n the past year have you spent more than 2 nights in a row in a fci, mcc, long-term center, or juvenile correctional facility? N o, A re you a refugee? I choose not to answer this question, W hat country are you from? I choose not to answer this question, D o you feel physically and emotionally safe where you currently live? Y es, I n the past year, have you been afraid of your partner or ex-partner? N o, P ANDERSNO Score: 6 . T obacco Use: D ont use, Tobacco Use/Smoking A re you a f ormer smoker, H ow long has it been since you last smoked? 1 -5 years. T obacco Control (Standard) T obacco use: N onsmoker. * Medications: T aking Ketorolac Tromethamine 30 MG/ML Solution 1 ml as needed Injection now , Taking Spironolactone 25 MG Tablet 1 tablet Orally , Taking Multivitamin Adults - Tablet Orally , Taking Folic Acid 1 MG Tablet 1 tablet Orally Once a day , Taking Thiamine HCl 100 MG Tablet 1 tablet Orally Once a day , Taking carBAMazepine 200 MG Tablet 1 tablet Orally Twice a day , Taking Baclofen 10 MG Tablet 1 tablet as needed Orally Twice a day , Taking Carvedilol 12.5 MG Tablet 1 tablet with food Orally Twice a day , Taking Digoxin 125 MCG Tablet 1 tablet Orally , Taking Entresto 24-26 MG Tablet 1 tablet Orally Twice a day , Taking Furosemide 20 MG Tablet 1 tablet Orally Once a day , Taking Jardiance 10 MG Tablet 1 tablet Orally Once a day , Taking Simvastatin 40 MG Tablet 1 tablet in the evening Orally Once a day Objective: * Vitals: * Examination: M ental Status Exam: ATTENTION AND CONCENTRATION x . APPEARANCE x . ATTITUDE AND BEHAVIOR x . EYE CONTACT x . AFFECT x . MOOD x . INSIGHT x . JUDGMENT x . G eneral Examination: E xplanation of presentation/need (staff to free text). Assessment: Plan: * Treatment: * Procedure Codes: 9 0791 PSYCH DIAGNOSTIC EVALUATION, Modifiers: AJ , T1016 Case management, CHS08 aT Service, CHS11 Insurance Application Assistance, [facility] Housing Assistance, [facility]13 Referring to Press Hand * * Electronic signature of Barrera Khan on 08/30/2024 at 01:35 PM CDT Sign off status: Pending * Provider: Cedrick Khan Date: 0 08/28/2024 Generated for Flo germain/Angelica/Dari on: 08/30/2024 01:35 PM CDT History and Physical Notes * [...] all Total Score: 7 Interpretation: Mild Depression Psychiatric Assessment - Current Symptoms Primary conc prema today x Overview of Mental Health Symptoms Wants to work on anxiety: while living in sister's house gets distraught and it's hard. Struggles with seeing things in home, see's images of sister in agony, had vision once. Helium ballon had face in it that scared client. See's ghost as described around house, has seen alien in clothing basket and was trying to speak with him but could not actually do so, client acknowledges this alien though was made out of clothing, he does believe it was still there. Has seen hien and forest doe while in bedroom. History of Psychiatric Hospitalizations two times over all, Ysa: 2016 first, 2019 History of Psychiatric and B ehavioral Health Treatment NA groups, found it helpful. No psych providers, Currently doing [facility] groups in [place] through [place] Substance Use History of substance use x Hx of Withdrawal x Substance of Choice x Current Use Patterns methaphetamine use: started at 25, using $30 at a time. Crack cociane: started but stopped 2021, addiction to that was terribly bad, would spend all money on it Alcohol: some, does not drink more than 3-4 beers at a time, last drink was Monday. Cannabis: No cannabis use, last use was about a year ago. Withdrawl: Cravings, irritatibiliy, stomach cramps, some diahrea. Longest period of Sobriety was two years, [id number] Screening [place] Suicide Sev erity Rating Scale (LF) Do you want to [...] end your life?: No Interpretation:: Low Risk HIV Risk Assessment Screening Sexual Risk Behaviors: 1. Are you sexually active? (If no skip question 2): Yes Required for Residential Admits 2. Do you engage in sexual activity with out protection against STIs?: Yes HIV/AIDS/Hepatitis Risk Assessment 1. Berrios ve you ever shared needles or equipment for injecting drugs, tattoos, or piercings with others?: No 2. Have you ever had unprote cted sex with someone you think might be infected with an STI or HIV (such as someone who injected drugs, who was diagnoed with or treated for an STI or hepatitis, has had mulitiple sex partners, or who has exchanged sex for drugs or money)?: No 3. Have you ever had unprote cted vaginal or anal intercourse with more than 1 sex partner?: No 4. Have you ever been diagno sed with or treated for an STI, hepatitis, or tuberculosis?: No 5. Have you ever had an unex plained fever or illness of unknown cause (not including the common cold)?: No 6. Have you ever been told t hat you have an infection related to a weak immune system ?: No 7. If YES to any of the abov e (including sexual risk behaviors), have you been tested in the past year for HIV/AIDS and/or Hepatitis C?: No (Testing should be offered) Encouraged HIV/AIDS and/or Hep C testing while in residential. Assessment of Social Determinants of Health:: Has A PRAPARE Been Completed In The Past Year? Has a PRAPARE Been Completed In The Past Year?: Yes Was It Completed Today Using [employer]?: No aT For Substance Use Services Who Is Your Primary Care Provider? Do You Have A Primary Care Provider?: Yes [facility] Date of last physical exam: Do You Have A Psychiatric Provider? Do You Have A Psychiatric Provider?: No est psych with [facility] Do You Have Any Other Professional Supports? Do You Have Any Other Professional Supports: Yes Consent Forms Completed Consent Forms: C onsent To Treat, Health Care Providers, Emergency Contact, Probation/Carlin CSSRS Interpretation and Follow Up Plan CSSRS Interpretation and Follow Up Plan CSSRS Screen documented using SF: Yes Risk Disposition from SF: Low - No Follo w Up Plan Required Follow Up Plan: No Follow Up Plan requir ed at this time. Timeframe of Screening: Today Examination Category Sub-Category Detail Notes Category Not es General Examination Explanat ion of presentation/need (staff to free text) Mental Status Exam ATTENTION AND CONCENTRATION x APPEARANCE x ATTITUDE AND BEHAVIOR x EYE CONTACT x AFFECT x MOOD x INSIGHT x JUDGMENT x
--- OUTSIDE RECORDS SUMMARY | 2024-08-30 13:35 | XMS_ITS | Encounter Summary ---
Author Organization [facility] Address [address] [place] [address] Phone Care Team Providers Care Continuous Improvement Specialist Name Role Phone Zia Ordonez MD Primary Care Provider Encounter Details Date Type Department Care Team (Latest Contact Info) Description 06/20/2024 Transcribe Orders [facility] [address] [place] [address] Elsa Jeong, DPM [address] [place] [address] Pre-op testing (Primary Dx) Social History Tobacco Use Types Packs/Day Years Used Date Smoking Tobacco: Former Cigarettes Smokeless Tobacco: Former Alcohol Use Standard Drinks/Week Comments Yes 0 (1 standard drink = 0.6 oz pur e alcohol) Sexually Active Control Partners Comments Yes Female Sex and Gender Information Value Date Recorded Sex Assigned at Not on file Legal Sex Male 6:35 PM [employer] Gender Identity Not on file Sexual Orientation Not on file documented as of this encounter Plan of Treatment Not on file documented as of this encounter Results * (ABNORMAL) BASIC METABOLIC PANEL W/ CALCIUM TOTAL (06/25/2024 12:26 PM [facility] HUNTER) SODIUM 138 136 - 145 mmol/L 06/25/2024 1:47 PM [facility] POTASSIUM 4.2 3.5 - 5.1 mmol/L 06/25/2024 1:47 PM [facility] CHLORIDE 106 98 - 107 mmol/L 06/25/2024 1:47 PM [facility] CO2, VENOUS 24 22 - 30 mmol/L 06/25/2024 1:47 PM [facility] ANION GAP 12.2 <18.0 mmol/L 06/25/2024 1:47 PM [facility] GLUCOSE 138(H) 70 - 99 mg/dL 06/25/2024 1:47 PM [facility]IGATOR H[facility]TER [facility] BUN 20 8 - 26 mg/dL 06/25/2024 1:47 PM [facility] CREATININE, BLOOD 1.08 0.70 - 1.30 mg/dL 06/25/2024 1:47 PM [facility] BUN/CREATININE RATIO 19 12 - 20 ratio 06/25/2024 1:47 PM [facility] CALCIUM 9.2 8.7 - 10.5 mg/dL 06/25/2024 1:47 PM [facility] IS THE PATIENT REQUIRED TO BE FASTING? No 06/25/2024 1:47 PM [facility] GFR, ESTIMATED >60 >=60 06/25/2024 1:47 PM [facility] Comment: Creatinine Clearance is the preferred criteria for selecting drug dose adjustments in renally impaired patients. The GFR is provided as additional pertinent clinical information. GFR is reported in mL/min/1.73 sq m. Calculation based on the Chronic Kidney Disease Epidemiology Collaboration (CKD- EPI) equation refit without adjustment for race. GFR, EST. >60 >=60 025 1:47 PM [facility] GFR, EST. NONAFRICAN >60 >=60 06/25/2024 1:47 PM [facility] Blood Venipuncture / Unknown 06/25/2024 12:26 PM [facility]TER 06/25/2024 12:57 PM [facility] Elsa D Jean-Paul DPM CHEMISTRY ORDERABLES Final R esult [facility] [address] [place] [address] documented in this encounter Visit Diagnoses Diagnosis Pre-op testing- Primary Preoperative examination, unspecified documented in this encounter Care Teams Continuous Improvement Specialist Relationship Specialty Start Date End Date Zia Ordonez MD PCP - General Obstetrics & Gynecology 06/16/24 documented as of this encounter
--- OUTSIDE RECORDS SUMMARY | 2024-08-30 13:35 | XMS_ITS | Clinical Summary ---
Author Organization [facility] Address [address] [place] [address] Phone Care Team Providers Care Survey Coordinator Name Role Phone Zia Ordonez MD Primary Care Provider Allergies Active Allergy Reactions Criticality Noted Date Comments Penicillins Hives 04/29/2018 Medications * This document contains information received from the source organization and may not represent a complete record from that organization. spironolactone (ALDACTONE) 25 MG Tablet Take 25 mg by mouth daily. Active sacubitril-rom sartan (Entresto) 24-26 MG TabletIndicati ons:Heart Failure Take by mouth 2 times daily. Indications: Cardiac Failure 3 Active baclofen (LIORESAL) 10 MG Tablet 2 times daily. 3 Active furosemide (LASIX) 20 MG Tablet Take 20 mg by mouth daily. 3 Active Empagliflozin (JARDIANCE) 10 MG Tablet Take 1 Tablet by mouth daily. 30 Tablet 3 3 Active Additional Information Patient taking differently:10 mg Oral DAILY,Indications: Heart Failure, Reported on 06/24/2024 carvedilol (Coreg) 12.5 MG Tablet Take 12.5 mg by mouth 2 times daily. Active naloxone HCl (Narcan) 4 MG/0.1ML Liquid 1 [place] by Nasal route as needed for Opioid Reversal (opioid overdose). administer for symptoms of overdose (severe sleepiness, breathing problems, not responsive). Call 911. May use additional dose to repeat 1 spray intranasally in 2-3 minutes if needed. 2 Each 3 Active Additional Information Patient not taking.Reported on 06/24/2024 omeprazole (PriLOSEC) 20 MG CAPSULE DELAYED RELEASE Take 20 mg by mouth every morning. 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 01/22/2021 Hypertension 10/08/2020 Chronic combined systolic (c ongestive) and diastolic (congestive) heart failure 12/19/2018 Other cardiomyopathies 12/14/2018 Tobacco dependence syndrome 12/14/2018 Drug dependence syndrome 11/07/2018 Encounters Date Type Department Care Team Description 07/24/2024 10:21 PM ELECTRICAL ENGINEERING PROFESSOR - 07/25/2024 1:39 AM ELECTRICAL ENGINEERING PROFESSOR Emergency [facility] Emergency [address] [place] [address] Juan Ramirez MD Positive D-dimer Discharge Disposition: Discharged to home or Selfcare 07/24/2024 Travel 07/01/2024 12:30 PM ELECTRICAL ENGINEERING PROFESSOR - 07/01/2024 11:59 PM ELECTRICAL ENGINEERING PROFESSOR Hospital Encounter [facility] [address] [place] [address] Elsa Jeong DPM Discharge Disposition: Discharged to home or Selfcare 07/01/2024 Travel 06/25/2024 Travel 06/24/2024 Travel 06/20/2024 Transcribe Orders [facility] Preop/Pacu II [address] [place] [address] Elsa Jeong DPM Pre-op testing (Primary Dx) 06/20/2024 Transcribe Orders [facility] Preop/Pacu II [address] [place] [address] Elsa Jeong DPM Pre-op testing (Primary Dx) 06/16/2024 4:26 PM ELECTRICAL ENGINEERING PROFESSOR - 06/16/2024 6:07 PM ELECTRICAL ENGINEERING PROFESSOR Emergency [facility] Emergency 1 [facility] [place] [address] Lydia Bullock MD Cellulitis of great toe of right foot Discharge Disposition: Discharged to home or Selfcare 06/16/2024 Travel from Last 3 Months Family History Medical History Relation Name Comments Diabetes Father Stroke Father Osteoporosis Mother Relation Name Status Comments Father Mother Alive Social History Tobacco Use Types Packs/Day Years Used Date Smoking Tobacco: Former Cigarettes Passive Smoke Exposure: Current Smokeless Tobacco: Former Tobacco Cessation:Counseling Given: Not Answered Alcohol Use Standard Drinks/Week Comments Yes 0 (1 standard drink = 0.6 oz pur e alcohol) 3X WEEKLY Sexually Active Control Partners Comments Yes Female Sex and Gender Information Value Date Recorded Sex Assigned at Not on file Legal Sex Male 6:35 PM ELECTRICAL ENGINEERING PROFESSOR Gender Identity Not on file Sexual Orientation Not on file Last Filed Vital Signs Vital Sign Reading Time Taken Comments Blood Pressure 119/70 07/25/2024 1:32 AM ELECTRICAL ENGINEERING PROFESSOR Pulse 79 07/25/2024 1:32 AM ELECTRICAL ENGINEERING PROFESSOR Temperature 36.1 C (97 F) 07/24/2024 10:22 PM ELECTRICAL ENGINEERING PROFESSOR Respiratory Rate 18 07/25/2024 1:32 AM ELECTRICAL ENGINEERING PROFESSOR Oxygen Saturation 98% 07/25/2024 1:32 AM ELECTRICAL ENGINEERING PROFESSOR Inhaled Oxygen Concentration - - Weight 78 kg (172 lb) 07/24/2024 10:22 PM ELECTRICAL ENGINEERING PROFESSOR Height 167.6 cm (5' 6 ) 07/24/2024 10:22 PM ELECTRICAL ENGINEERING PROFESSOR Body Mass Index 27.76 07/24/2024 10:22 PM ELECTRICAL ENGINEERING PROFESSOR Plan of Treatment Health Maintenance Due Date Last Done Comments Hepatitis C Virus (HCV) Screening 1970 Hepatitis B Immunization (1 of 3 - 19+ 3-dose series) 1989 Pneumococcal Immunization (5 0+ years) (1 of 2 - PCV) 1989 Colonoscopy 08/11/2015 Colorectal Cancer Screening 08/11/2015 Cologuard 2020 Immunochemical Fecal Occult Blood 2020 Zoster Immunization (1 of 2) 2020 Influenza Immunization (#1) 2024 SARS-COV-2 Immunization ( season) 2024 08/04/2020 Respiratory Syncytial Virus (RSV) Immunization (Adult) (1 - 1-dose 75+ series) 2045 DTaP/Tdap/Td Immunization Discontinued 06/14/2022 TdaP Immunization Completed 06/14/2022 Meningococcal Immunization (ACWY) Aged Out No longer eligible based on patient's age to complete this topic Rotavirus Immunization Aged Out No lo nger eligible based on patient's age to complete this topic Medical Devices Implanted Type Area Granite Worker Device Identifier Shelf Expiration Date Model / Serial / Lot Aicd-11/06/2020 Implanted:2020 (Quantity not on file) Procedures Procedure Name Priority Date/Time Associated Diagnosis Comments CBC WITH AUTO DIFFERENTIAL STAT 07/24/2024 11:19 PM ELECTRICAL ENGINEERING PROFESSOR D-DIMER STAT 07/24/2024 11:19 PM ELECTRICAL ENGINEERING PROFESSOR C-REACTIVE PROTEIN (CRP) QUANT STAT 07/24/2024 11:19 PM ELECTRICAL ENGINEERING PROFESSOR ERYTHROCYTE SEDIMENTATION RATE (ESR) STAT 07/24/2024 11:19 PM ELECTRICAL ENGINEERING PROFESSOR CMP (COMPREHENSIVE METABOLIC PANEL) STAT 07/24/2024 11:19 PM ELECTRICAL ENGINEERING PROFESSOR COMPLETE BLOOD COUNT (CBC) WITH DIFF STAT 07/24/2024 11:19 PM ELECTRICAL ENGINEERING PROFESSOR XR TIBIA & FIBULA RIGHT STAT 07/24/2024 11:17 PM ELECTRICAL ENGINEERING PROFESSOR EKG 12 LEAD Routine 07/01/2024 12:36 PM ELECTRICAL ENGINEERING PROFESSOR Pre-op testing BASIC METABOLIC PANEL W/ CALCIUM TOTAL Routine 06/25/2024 12:26 PM ELECTRICAL ENGINEERING PROFESSOR Pre-op testing XR TOE(S) MIN 2V RT STAT 06/16/2024 5:08 PM ELECTRICAL ENGINEERING PROFESSOR from Last 3 Months Results * CBC with Auto Differential (07/24/2024 11:19 PM [facility]) WBC 6.96 4.00 - 12.00 10(3)/mcL 07/25/2024 12:11 AM [facility] RBC 4.65 4.40 - 5.80 10(6)/mcL 07/25/2024 12:11 AM [facility] HEMOGLOBIN (HGB) 14.5 13.0 - 16.5 g/dL 07/25/2024 12:11 AM [facility] HEMATOCRIT (HCT) 42.0 38.0 - 50.0 % 07/25/2024 12:11 AM [facility] MCV 90.3 82.0 - 96.0 fL 07/25/2024 12:11 AM [facility] MCH 31.2 26.0 - 32.0 pg 07/25/2024 12:11 AM [facility] MCHC 34.5 31.0 - 36.0 g/dL 07/25/2024 12:11 AM [facility] PLATELET COUNT 186 140 - 440 10(3)/[facility] 07/25/2024 12:11 AM [facility] RDW 12.6 11.8 - 15.5 % 07/25/2024 12:11 AM [facility] MPV 8.5 8.0 - 12.6 fL 07/25/2024 12:11 AM [facility] NEUTROPHILS 60.7 40.0 - 68.0 % 07/25/2024 12:11 AM [facility] LYMPHOCYTES 28.7 19.0 - 49.0 % 07/25/2024 12:11 AM [facility] MONOCYTES 8.2 3.0 - 13.0 % 07/25/2024 12:11 AM [facility] EOSINOPHILS 2.0 0.0 - 8.0 % 07/25/2024 12:11 AM [facility] BASOPHILS 0.4 0.0 - 1.0 % 07/25/2024 12:11 AM ELECTRICAL ENGINEERING PROFESSOR [facility] ABSOLUTE NEUTROPHILS 4.22 1.40 - 5.30 10(3)/[facility] 07/25/2024 12:11 AM ELECTRICAL ENGINEERING PROFESSOR [facility] ABSOLUTE LYMPHOCYTES 2.00 0.90 - 3.30 10(3)/[facility] 07/25/2024 12:11 AM ELECTRICAL ENGINEERING PROFESSOR [facility] ABSOLUTE MONOCYTES 0.57 0.10 - 0.90 10(3)/[facility] 07/25/2024 12:11 AM ELECTRICAL ENGINEERING PROFESSOR [facility] ABSOLUTE EOSINOPHIL 0.14 0.00 - 0.50 10(3)/[facility] 07/25/2024 12:11 AM ELECTRICAL ENGINEERING PROFESSOR [facility] ABSOLUTE BASOPHILS 0.03 0.00 - 0.10 10(3)/[facility] 07/25/2024 12:11 AM ELECTRICAL ENGINEERING PROFESSOR [facility] NRBC PER 100 WBC 0 07/25/19 25 12:11 AM ELECTRICAL ENGINEERING PROFESSOR [facility] Blood Venipuncture / Unknown 07/24/2024 11:19 PM ELECTRICAL ENGINEERING PROFESSOR 07/25/2024 12:08 AM ELECTRICAL ENGINEERING PROFESSOR Juan Ramirez MD HEMATOLOGY ORDERABLES Fin al Result [facility] [address] [place] [address] * (ABNORMAL) Sed Rate (Esr) [id number] (07/24/2024 11:19 PM ELECTRICAL ENGINEERING PROFESSOR) ESR (SED RATE, ERYTHROCYTE SEDIMENTATION RATE) 23(H) <20 mm/h 07/25/2024 12:14 AM ELECTRICAL ENGINEERING PROFESSOR [facility] Comment: Patients presenting with increased level of fibrinogen, gamma globulins, or abnormally shaped RBCs could affect the results for the erythrocyte sedimentation rate (ESR). Results should be clinically correlated. Blood Venipuncture / Unknown 07/24/2024 11:19 PM ELECTRICAL ENGINEERING PROFESSOR 07/25/2024 12:08 AM ELECTRICAL ENGINEERING PROFESSOR Juan Ramirez MD HEMATOLOGY ORDERABLES Fin al Result Performing Organization Address [facility] Co de Phone Number [facility] [address] [place] [address] * (ABNORMAL) D-Dimer (07/24/2024 11:19 PM ELECTRICAL ENGINEERING PROFESSOR) [facility] D DIMER 0.80(H) <0.50 mcg/mL FEU 07/25/2024 12:25 AM ELECTRICAL ENGINEERING PROFESSOR [facility] Blood Venipuncture / Unknown 07/24/2024 11:19 PM ELECTRICAL ENGINEERING PROFESSOR 07/25/2024 12:08 AM ELECTRICAL ENGINEERING PROFESSOR Narrative [facility] - 07/25/2024 12:25 AM ELECTRICAL ENGINEERING PROFESSOR The FDA has approved this method to exclude the diagnosis of DVT and/or PE at the cutoff value of <0.50 mcg/mL FEU. Juan Ramirez MD HEMATOLOGY ORDERABLES Fin al Result Performing Organization Address [facility] de Phone Number [facility] [address] [place] [address] * (ABNORMAL) CMP (Comprehensive Metabolic Panel) (07/24/2024 11:19 PM ELECTRICAL ENGINEERING PROFESSOR) [facility] SODIUM 142 136 - 145 mmol/L 07/25/2024 12:33 AM [facility] POTASSIUM 3.6 3.5 - 5.1 mmol/L 07/25/2024 12:33 AM [facility] CHLORIDE 111(H) 98 - 107 mmol/L 07/25/2024 12:33 AM [facility] CO2, VENOUS 20(L) 22 - 30 mmol/L 07/25/2024 12:33 AM [facility] ANION GAP 14.6 <18.0 mmol/L 07/25/2024 12:33 AM [facility] GLUCOSE 134(H) 70 - 99 mg/dL 07/25/2024 12:33 AM [facility] BUN 23 8 - 26 mg/dL 07/25/2024 12:33 AM [facility] CREATININE, BLOOD 1.07 0.70 - 1.30 mg/dL 07/25/2024 12:33 AM [facility] BUN/CREATININE RATIO 21(H) 12 - 20 ratio 07/25/2024 12:33 AM [facility] TOTAL PROTEIN 6.6 6.0 - 8.0 g/dL 07/25/2024 12:33 AM [facility] ALBUMIN 3.7 3.5 - 5.0 g/dL 07/25/2024 12:33 AM [facility] A/G RATIO 1.3 1.0 - 2.2 07/25/2024 12:33 AM [facility] CALCIUM 9.0 8.7 - 10.5 mg/dL 07/25/2024 12:33 AM [facility] T BILI 0.4 0.2 - 1.2 mg/dL 07/25/2024 12:33 AM [facility] SGOT (AST) 34 <43 U/L 07/25/2024 12:33 AM [facility] SGPT (ALT) 44 <56 U/L 07/25/2024 12:33 AM [facility] ALKALINE PHOSPHATASE 85 40 - 150 U/L 07/25/2024 12:33 AM [facility] GFR, ESTIMATED >60 >=60 07/25/2024 12:33 AM [facility] Comment: Creatinine Clearance is the preferred criteria for selecting drug dose adjustments in renally impaired patients. The GFR is provided as additional pertinent clinical information. GFR is reported in mL/min/1.73 sq m. Calculation based on the Chronic Kidney Disease Epidemiology Collaboration (CKD- EPI) equation refit without adjustment for race. GFR, EST. >60 >=60 025 12:33 AM [facility] GFR, EST. NONAFRICAN >60 >=60 07/25/2024 12:33 AM [facility] Blood Venipuncture / Unknown 07/24/2024 11:19 PM ELECTRICAL ENGINEERING PROFESSOR 07/25/2024 12:08 AM ELECTRICAL ENGINEERING PROFESSOR Juan Ramirez MD CHEMISTRY ORDERABLES Shira l Result Performing Organization Address [facility] Co de Phone Number [facility] [address] [place] [address] * C-Reactive Protein Qnt (Crp) (07/24/2024 11:19 PM ELECTRICAL ENGINEERING PROFESSOR) C-REACTIVE PROTEIN 0.47 <0.50 mg/dL 07/25/2024 12:33 AM ELECTRICAL ENGINEERING PROFESSOR [facility] Blood Venipuncture / Unknown 07/24/2024 11:19 PM ELECTRICAL ENGINEERING PROFESSOR 07/25/2024 12:08 AM ELECTRICAL ENGINEERING PROFESSOR Juna Ramirez MD CHEMISTRY ORDERABLES Shira l Result Performing Organization Address [facility] Co de Phone Number [facility] [address] [place] [address] * XR TIBIA & FIBULA RIGHT (07/24/2024 11:17 PM ELECTRICAL ENGINEERING PROFESSOR) Anatomical Region Laterality Modality LOWER EXTREMITY, leg Right Digital Rad iography 07/24/2024 11:3 6 PM ELECTRICAL ENGINEERING PROFESSOR Impressions 07/24/2024 11:38 PM ELECTRICAL ENGINEERING PROFESSOR IMPRESSION: No acute osseous abnormality. Narrative 07/24/2024 11:38 PM ELECTRICAL ENGINEERING PROFESSOR EXAM DESCRIPTION: XR TIBIA and FIBULA RIGHT REASON FOR STUDY: Trauma TECHNIQUE: 2 radiographic view(s) of the right tibia and fibula . COMPARISON: None available FINDINGS: There is no acute fracture or acute traumatic malalignment. Mild patellofemoral compartment knee osteoarthritis. No aggressive bone lesions. Mild calf soft tissue swelling. THIS IS AN ELECTRONICALLY VERIFIED FINAL REPORT 07/24/2024 11:36 PM - Electronically signed by Ariella Hayward M.D. AT: AT Report ID: [id number] Reading Location: [id number] Procedure Note Ariella Hayward MD - 07/24/2024 EXAM DESCRIPTION: XR TIBIA and FIBULA RIGHT REASON FOR STUDY: Trauma TECHNIQUE: 2 radiographic view(s) of the right tibia and fibula . COMPARISON: None available FINDINGS: There is no acute fracture or acute traumatic malalignment. Mild patellofemoral compartment knee osteoarthritis. No aggressive bone lesions. Mild calf soft tissue swelling. THIS IS AN ELECTRONICALLY VERIFIED FINAL REPORT 07/24/2024 11:36 PM - Electronically signed by Ariella Hayward M.D. AT: AT Report ID: [id number] Reading Location: [id number] IMPRESSION: No acute osseous abnormality. Juan Ramirez MD IMG DIAGNOSTIC ORDERABLES Final Result * EKG 12 LEAD (07/01/2024 12:36 PM ELECTRICAL ENGINEERING PROFESSOR) Ventricular Rate 84 BPM EXTERNAL EKG Atrial Rate 84 BPM EXTERNAL EKG P-R Interval 158 ms EXTERNAL EKG QRS Duration 158 ms EXTERNAL EKG Q-T Duration 416 ms EXTERNAL EKG QTC CALCULATION 491 ms EXTERNAL EKG P [place] 7 degrees EXTERNAL EKG R [place] -66 degrees EXTERNAL EKG T [place] 89 degrees EXTERNAL EKG 07/01/2024 12:3 6 PM ELECTRICAL ENGINEERING PROFESSOR Impressions EXTERNAL EKG - 07/01/2024 4:10 PM ELECTRICAL ENGINEERING PROFESSOR Atrial-sensed ventricular-paced rhythm Abnormal ECG When compared with ECG of 25-JUL-2023 15:27, Vent. rate has increased BY 15 BPM Confirmed by Mushtaq Zurita ([id number]) on 07/01/2024 4:10:11 PM Narrative Procedure Note Mushtaq Zurita MD - 07/01/2024 IMPRESSION: Atrial-sensed ventricular-paced rhythm Abnormal ECG When compared with ECG of 25-JUL-2023 15:27, Vent. rate has increased BY 15 BPM Confirmed by Muhstaq Zurita ([id number]) on 07/01/2024 4:10:11 PM us Elsa Jeong DPM IMG ECG ORDERABLES Final Res ult EXTERNAL EKG * (ABNORMAL) BASIC METABOLIC PANEL W/ CALCIUM TOTAL (06/25/2024 12:26 PM ELECTRICAL ENGINEERING PROFESSOR) SODIUM 138 136 - 145 mmol/L 06/25/2024 1:47 PM ELECTRICAL ENGINEERING PROFESSOR [facility] POTASSIUM 4.2 3.5 - 5.1 mmol/L 06/25/2024 1:47 PM [facility] CHLORIDE 106 98 - 107 mmol/L 06/25/2024 1:47 PM [facility] CO2, VENOUS 24 22 - 30 mmol/L 06/25/2024 1:47 PM [facility] ANION GAP 12.2 <18.0 mmol/L 06/25/2024 1:47 PM [facility] GLUCOSE 138(H) 70 - 99 mg/dL 06/25/2024 1:47 PM [facility] BUN 20 8 - 26 mg/dL 06/25/2024 1:47 PM [facility] CREATININE, BLOOD 1.08 0.70 - 1.30 mg/dL 06/25/2024 1:47 PM [facility] BUN/CREATININE RATIO 19 12 - 20 ratio 06/25/2024 1:47 PM [facility] CALCIUM 9.2 8.7 - 10.5 mg/dL 06/25/2024 1:47 PM [facility] IS THE PATIENT REQUIRED TO BE FASTING? No 06/25/2024 1:47 PM [facility] GFR, ESTIMATED >60 >=60 06/25/2024 1:47 PM [facility] Comment: Creatinine Clearance is the preferred criteria for selecting drug dose adjustments in renally impaired patients. The GFR is provided as additional pertinent clinical information. GFR is reported in mL/min/1.73 sq m. Calculation based on the Chronic Kidney Disease Epidemiology Collaboration (CKD- EPI) equation refit without adjustment for race. GFR, EST. >60 >=60 025 1:47 PM ELECTRICAL ENGINEERING PROFESSOR [facility] GFR, EST. NONAFRICAN >60 >=60 06/25/2024 1:47 PM ELECTRICAL ENGINEERING PROFESSOR [facility] Blood Venipuncture / Unknown 06/25/2024 12:26 PM ELECTRICAL ENGINEERING PROFESSOR 06/25/2024 12:57 PM ELECTRICAL ENGINEERING PROFESSOR us Elsa Jeong DPM CHEMISTRY ORDERABLES Final R esult [facility] [address] [place] [address] * XR TOE(S) MIN?? 2V RT (06/16/2024 5:08 PM ELECTRICAL ENGINEERING PROFESSOR) Anatomical Region Laterality Modality LOWER EXTREMITY, Toes N/A Digital Ra diography 06/16/2024 5:48 PM ELECTRICAL ENGINEERING PROFESSOR Impressions 06/16/2024 5:50 PM ELECTRICAL ENGINEERING PROFESSOR Findings/impression: Mild degenerative changes are noted particularly of the great toe. Lesser degenerative changes are seen of the base of the 2nd toe. No clear evidence of acute fracture or dislocation is identified. Likely chronic defect of the proximal 5th metatarsal is incidentally noted. Soft tissues appear unremarkable. Narrative 06/16/2024 5:50 PM ELECTRICAL ENGINEERING PROFESSOR EXAM DESCRIPTION: XR TOE(S) MIN 2V RT REASON FOR STUDY: toe pain TECHNIQUE: 4 radiographic view(s) of the left toes . COMPARISON: None THIS IS AN ELECTRONICALLY VERIFIED FINAL REPORT 06/16/2024 5:48 PM - Electronically signed by Joselito Rudolph M.D. KH: VARGHESE Report ID: [id number] Reading Location: [place] [address] Procedure Note Joselito Rudolph MD - 06/16/2024 EXAM DESCRIPTION: XR TOE(S) MIN 2V RT REASON FOR STUDY: toe pain TECHNIQUE: 4 radiographic view(s) of the left toes . COMPARISON: None THIS IS AN ELECTRONICALLY VERIFIED FINAL REPORT 06/16/2024 5:48 PM - Electronically signed by Joselito Rudolph M.D. KH: VARGHESE Report ID: [id number] Reading Location: [place] [address] Findings/impression: Mild degenerative changes are noted particularly of the great toe. Lesser degenerative changes are seen of the base of the 2nd toe. No clear evidence of acute fracture or dislocation is identified. Likely chronic defect of the proximal 5th metatarsal is incidentally noted. Soft tissues appear unremarkable. Lydia Bullock MD IMG DIAGNOSTIC ORDERABLES Fin al Result from Last 3 Months Insurance MEDICAID [employer] [facility] [employer] [facility] Advance Directives * Full Code (Latest Code Status on File) Date Activated Date Inactivated Comments 10/06/2022 7:37 PM 10/09/2022 2:45 PM CPR-Full Sivakumar atment: FULL ARREST: Attempt Resuscitation/CPR wit intubation and mechanical ventilation. PRE-ARREST: Use entire range of life support measures to stabilize the patient. Care Teams Survey Coordinator Relationship Specialty Start Date End Date Zia Ordonez MD PCP - General Obstetrics & Gynecology 06/16/24
[2024-08-30 13:45] LABS: Alanine Aminotransferase 45 U/L (6-50); Albumin Level 4.5 g/dL (3.5-5.1); Alkaline Phosphatase 107 U/L (38-126); Anion Gap 9 mmol/L (4-12); Aspartate Amino Transferase 37 U/L (17-59); Bilirubin,Total 0.4 mg/dL (0.2-1.3); Blood Urea Nitrogen 14 mg/dL (9-20); Calcium 9.6 mg/dL (8.4-10.2); Carbon Dioxide 27 mmol/L (22-30); Chloride 103 mmol/L (98-107); Estimated CRCL calculation 85 ml/min; Estimated Glomerular Filt Rate > 60; Glucose 118 mg/dL (65-110); Potassium 4.1 mmol/L (3.4-5.0); Sodium 139 mmol/L (137-145)
--- NOTE | 2024-08-30 13:49 | ED.GENADULT ---
HPI - General Adult General Chief complaint: Altered Mental Status Stated complaint: ams Time Seen by Provider: 08/30/24 13:17 History of Present Illness HPI narrative: Patient is a 54-year-old male who presents ER with increased fatigue and tiredness since yesterday. Facility felt he was altered. He is oriented times 4 here. Checked in 5 days ago for methamphetamine rehab. He has been on a new diuretic. Denies fevers or chills or sweats. No chest pain. Denies drug/alcohol use. No runny nose/sore throat/cough. Related Data Home Medications ?Medication ?Instructions ?Recorded ?Confirmed ?Last Taken ?Type baclofen 10 mg tablet 10 mg PO TID 08/05/19 11/04/19 12/31/19 History gabapentin 300 mg capsule 300 mg PO TID 08/05/19 11/04/19 12/31/19 History spironolactone 25 mg tablet 12.5 mg PO DAILY 08/05/19 11/04/19 12/31/19 History furosemide 20 mg tablet 20 mg PO DAILY 11/04/19 11/04/19 12/31/19 History omeprazole 20 mg capsule,delayed 20 mg PO TIDWM 11/04/19 11/04/19 12/31/19 History release Allergies Allergy/AdvReac Type Severity Reaction Status Date / Time Penicillins Allergy Unknown Unknown Verified 01/24/20 17:08 Review of Systems Review of Systems: All systems reviewed & are unremarkable except as noted in HPI and below Constitutional: Constitutional: Reports no additional constitutional complaints ENT: Reports system reviewed and no additional complaints, except as documented Cardiovascular: Cardiovascular: Reports no additional cardiovascular complaints Respiratory: Respiratory: Reports no additional respiratory complaints Gastrointestinal: Gastrointestinal: Reports no additional gastrointestinal complaints Genitourinary: Genitourinary: Reports no additional male genitourinary complaints [facility] Past Medical History Medical History (Updated 08/30/24 @ 16:45 by Rommel Beckwith MD) Opioid abuse CHF (congestive heart failure) Aortic valve disease Femur fracture, right Femur fracture Depression Anxiety Trigger thumb Carpal tunnel syndrome Hypertension Family History Family History Mother Anxiety Osteoporosis Father Cerebrovascular accident Sibling Heart problem Diabetes mellitus Social History Social History Years smoked: 30 Smoking status: Current every day smoker Tobacco type: cigarettes Alcohol intake: current Drinks per week: 3 Alcohol use details: denies alcohol use Substance use: current Substance use type: marijuana and methamphetamine Gender identity (if verbalized by the patient): Male Spiritual care concerns: No Exam Narrative: GENERAL: Fatigued-appearing, well-nourished, and in no acute distress. HEAD: Normocephalic, atraumatic. ENT: Mucous membranes moist. CHEST: Clear to auscultation. No respiratory distress. HEART: Regular rate and rhythm. Normal peripheral pulses. ABDOMEN: Soft, nontender, nondistended. EXTREMITIES: Normal range of motion. No edema. SKIN: Warm, dry, no rash. NEURO: Alert and oriented x3. PSYCH: Normal mood and affect. Course Course Emergency Course: Resting comfortably. No abnormality on exam or labs. No digitoxicity. Patient appropriately positive for amphetamine again history of abuse. Appropriate for discharge back to facility. Vital Signs Vital signs: Vital Signs Temperature 97.6 F 08/30/24 13:22 Pulse Rate 87 08/30/24 13:22 Respiratory Rate 16 08/30/24 13:22 Blood Pressure 119/79 08/30/24 13:22 Pulse Oximetry 98 08/30/24 13:22 Temperature 97.6 F 08/30/24 13:22 Pulse Rate 80 08/30/24 15:01 Respiratory Rate 14 08/30/24 15:01 Blood Pressure 98/61 L 08/30/24 15:01 Pulse Oximetry 100 08/30/24 13:52 Oxygen Delivery Room Air 08/30/24 13:49 Medical Decision Making Vital Signs Vital Signs: Vital Signs Temperature 97.6 F 08/30/24 13:22 Pulse Rate 87 08/30/24 13:22 Respiratory Rate 16 08/30/24 13:22 Blood Pressure 119/79 08/30/24 13:22 Pulse Oximetry 98 08/30/24 13:22 Temperature 97.6 F 08/30/24 13:22 Pulse Rate 80 08/30/24 15:01 Respiratory Rate 14 08/30/24 15:01 Blood Pressure 98/61 L 08/30/24 15:01 Pulse Oximetry 100 08/30/24 13:52 Oxygen Delivery Room Air 08/30/24 13:49 Lab Data 08/30/24 13:29 08/30/24 13:29 Labs: Lab Results 08/30/24 08/30/24 08/30/24 Range/Units 13:28 13:29 14:54 WBC 10.0 (4.5-10.0) K/mm3 RBC 5.47 (4.6-6.20) M/mm3 Hgb 17.0 (14.0-18.0) g/dL Hct 51.8 (42.0-52.0) % MCV 94.7 (80-100) fl MCH 31.1 (26-34) pg MCHC 32.8 (32-36) g/dl RDW 13.8 (11.5-14.5) % Plt Count 179 (150-375) k/mm3 MPV 8.6 (7.4-10.4) fl Immature Gran % (Auto) 0.4 (0-0.5) % Neut % (Auto) 76.4 H (45.5-73.1) % Lymph % (Auto) 13.9 L (18.3-44.2) % Nicholas % (Auto) 8.0 (2.6-8.5) % Eos % (Auto) 1.1 (0-4.4) % Baso % (Auto) 0.2 (0.2-1.2) % Lymph # (Auto) 1.38 (0.9-3.2) K/mm3 Nicholas # (Auto) 0.8 H (0.1-0.6) K/mm3 Eos # (Auto) 0.1 (0-0.3) K/mm3 Baso # (Auto) 0.0 (0.0-0.1) K/mm3 Abs Immat Gran (auto) 0.04 H (0.00-0.031) K/mm3 Absolute Neuts (auto) 7.6 H (1.3-6.7) K/mm3 Absolute Nucleated RBC 0.000 (0.0-0.012) K/mm3 Nucleated RBC % 0.0 (0.0-0.2) % PT 12.1 (11.1-14.7) Seconds INR 0.9 APTT 24.0 (22.3-36.8) Seconds Sodium 139 (137-145) mmol/L Potassium 4.1 (3.4-5.0) mmol/L Chloride 103 (98-107) mmol/L Carbon Dioxide 27 (22-30) mmol/L Anion Gap 9 (4-12) mmol/L BUN 14 D (9-20) mg/dL Creatinine 0.93 (0.7-1.3) mg/dL Estim Creat Clear Calc 85 ml/min Estimated GFR > 60 (59 - ) Glucose 118 H (65-110) mg/dL Calcium 9.6 (8.4-10.2) mg/dL Total Bilirubin 0.4 (0.2-1.3) mg/dL AST 37 (17-59) U/L ALT 45 (6-50) U/L Alkaline Phosphatase 107 (38-126) U/L Total Protein 8.0 (6.3-8.2) g/dL Albumin 4.5 (3.5-5.1) g/dL Urine Color (Yellow) Urine Appearance (Clear) Urine pH (5.0-9.0) Ur Specific [place] (1.001-1.035) Urine Protein (Negative) mg/dL Urine Glucose (UA) (Negative) mg/dL Urine Ketones (Negative) mg/dL Ur Blood (Man) (Negative) Urine Nitrate (Negative) Urine Bilirubin (Negative) Urine Urobilinogen (<2.0) mg/dL Leukocyte Esterase Rfl (Negative) MILTON/UL Digoxin < 0.5 L (0.8-2.0) ng/mL Urine Opiates Screen (Negative) Urine Methadone Screen (Negative) Ur Barbiturates Screen (Negative) Ur Phencyclidine Scrn (Negative) Ur Amphetamine Screen (Negative) U Benzodiazepines Scrn (Negative) Urine Cocaine Screen (Negative) U Cannabinoids Screen (Negative) Ethyl Alcohol < 10 (<10) mg/dL 08/30/24 Range/Units 15:19 WBC (4.5-10.0) K/mm3 RBC (4.6-6.20) M/mm3 Hgb (14.0-18.0) g/dL Hct (42.0-52.0) % MCV (80-100) fl MCH (26-34) pg MCHC (32-36) g/dl RDW (11.5-14.5) % Plt Count (150-375) k/mm3 MPV (7.4-10.4) fl Immature Gran % (Auto) (0-0.5) % Neut % (Auto) (45.5-73.1) % Lymph % (Auto) (18.3-44.2) % Nicholas % (Auto) (2.6-8.5) % Eos % (Auto) (0-4.4) % Baso % (Auto) (0.2-1.2) % Lymph # (Auto) (0.9-3.2) K/mm3 Nicholas # (Auto) (0.1-0.6) K/mm3 Eos # (Auto) (0-0.3) K/mm3 Baso # (Auto) (0.0-0.1) K/mm3 Abs Immat Gran (auto) (0.00-0.031) K/mm3 Absolute Neuts (auto) (1.3-6.7) K/mm3 Absolute Nucleated RBC (0.0-0.012) K/mm3 Nucleated RBC % (0.0-0.2) % PT (11.1-14.7) Seconds INR APTT (22.3-36.8) Seconds Sodium (137-145) mmol/L Potassium (3.4-5.0) mmol/L Chloride (98-107) mmol/L Carbon Dioxide (22-30) mmol/L Anion Gap (4-12) mmol/L BUN (9-20) mg/dL Creatinine (0.7-1.3) mg/dL Estim Creat Clear Calc ml/min Estimated GFR (59 - ) Glucose (65-110) mg/dL Calcium (8.4-10.2) mg/dL Total Bilirubin (0.2-1.3) mg/dL AST (17-59) U/L ALT (6-50) U/L Alkaline Phosphatase (38-126) U/L Total Protein (6.3-8.2) g/dL Albumin (3.5-5.1) g/dL Urine Color Yellow (Yellow) Urine Appearance Clear (Clear) Urine pH 5.5 (5.0-9.0) Ur Specific [place] 1.023 (1.001-1.035) Urine Protein Negative (Negative) mg/dL Urine Glucose (UA) 3+ H (Negative) mg/dL Urine Ketones Negative (Negative) mg/dL Ur Blood (Man) Negative (Negative) Urine Nitrate Negative (Negative) Urine Bilirubin Negative (Negative) Urine Urobilinogen 0.2 (<2.0) mg/dL Leukocyte Esterase Rfl Negative (Negative) MILTON/UL Digoxin (0.8-2.0) ng/mL Urine Opiates Screen Negative (Negative) Urine Methadone Screen Negative (Negative) Ur Barbiturates Screen Negative (Negative) Ur Phencyclidine Scrn Negative (Negative) Ur Amphetamine Screen Positive A (Negative) U Benzodiazepines Scrn Negative (Negative) Urine Cocaine Screen Negative (Negative) U Cannabinoids Screen Negative (Negative) Ethyl Alcohol (<10) mg/dL ECG Data EKG #1: ECG completion date: 08/30/24 ECG completion time: 13:25 EKG Interpretation: normal rate (81), normal QT and other (Paced) Discharge Plan Discharge Clinical Impression: Withdrawal from methamphetamine Patient Disposition: Home, Self-Care Condition: Stable Instructions: Methamphetamine Use Disorder (ED) Patient Language: Hong Konger Prescriptions: No Action spironolactone 25 mg tablet 12.5 mg PO DAILY baclofen 10 mg tablet 10 mg PO TID Rx Instructions: TID AFTER MEALS gabapentin 300 mg capsule 300 mg PO TID omeprazole 20 mg capsule,delayed release(DR/EC) 20 mg PO TIDWM furosemide 20 mg tablet 20 mg PO DAILY carvedilol 3.125 mg tablet 3.125 mg PO BID Qty: 60 0RF Rx Instructions: must administer with a meal/food Follow-up/Referrals: Argentina Garzon DO [Physician] - 1 Week UNKNOWN,DOCTOR [Primary Care Provider] -
[2024-08-30 14:01] LABS: INR 0.9; Prothrombin Time 12.1 Seconds (11.1-14.7)
[2024-08-30 15:00] LABS: Ethanol < 10 mg/dL (<10)
[2024-08-30 15:12] LABS: Digoxin < 0.5 ng/mL (0.8-2.0)
[2024-08-30 15:27] LABS: Add Urine Microscopic? NO; Appearance Urine Clear (Clear); Bilirubin Urine Negative (Negative); Blood Urine Negative (Negative); Color Urine Yellow (Yellow); Glucose Urine UA 3+ mg/dL (Negative); Ketones Urine Negative (Negative); Leukocyte Esterase Ur Negative LEU/UL (Negative); Nitrate Urine Negative (Negative); Protein Urine Negative (Negative); Specific Grav Ur 1.023 (1.001-1.035); Urobilinogen Urine 0.2 mg/dL (<2.0); pH Urine 5.5 (5.0-9.0)
[2024-08-30 15:42] LABS: Amphetamine Screen Urine Positive (Negative); Barbiturate Screen Urine Negative (Negative); Benzodiazepines Screen Urine Negative (Negative); Cannabinoid Screen Urine Negative (Negative); Cocaine Screen Urine Negative (Negative); Methadone Screen Urine Negative (Negative); Opiate Screen Urine Negative (Negative); Phencyclidine Screen Urine Negative (Negative)
[2024-08-30] MEDS: SODIUM CHLORIDE 0.9% IV 1,000 ML 999 ML IV CONT (16:53)
== END 2024-08-30 17:37 | disposition home or self-care (01) ==
PROVIDERS: Emergency Provider Emergency Medicine
DX: F15.13 Other stimulant abuse with withdrawal (principal); I50.9 Heart failure, unspecified; I11.0 Hypertensive heart disease with heart failure; I35.9 Nonrheumatic aortic valve disorder, unspecified; F17.210 Nicotine dependence, cigarettes, uncomplicated; Z95.0 Presence of cardiac pacemaker; Z79.899 Other long term (current) drug therapy
CPT/HCPCS: 36415; 80053; 80162; 80307; 81003; 82077; 85025; 85610; 85730; 93005; 96360; 99284; J7030

== ENCOUNTER 2024-09-01 11:02 | Emergency (ER) | payer OTHER, SELFPAY ==
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
--- OUTSIDE RECORDS SUMMARY | 2024-09-01 11:04 | XMS_ITS | Encounter Summary ---
Author Organization [facility] Address [address] [place] [address] Phone Care Team Providers Care Airplane Captain Name Role Phone Zia Ordonez MD Primary Care Provider Reason for Referral * Radiology Services (Routine) - Closed Specialty Diagnoses / Procedures Referred By Contac t Referred To Contact Radiology Diagnoses Pre-op testing Procedures EKG 12 LEAD Elsa Jeong DPM [address] [place] [address] Phone: tel: fax: Referral ID Status Reason Start Date Expiration Date Visits Re quested Visits Authorized [id number] Closed 06/20/2024 1 1 CCO BLENDER Encounter Details Date Type Department Care Team (Latest Contact Info) Description 06/20/2024 Transcribe Orders [facility] Preop/Pacu II [address] [place] [address] Elsa Jeong DPM [address] [place] [address] Pre-op testing (Primary Dx) Social History Tobacco Use Types Packs/Day Years Used Date Smoking Tobacco: Former Cigarettes Smokeless Tobacco: Former Alcohol Use Standard Drinks/Week Comments Yes 0 (1 standard drink = 0.6 oz pur e alcohol) Sexually Active Control Partners Comments Yes Female Sex and Gender Information Value Date Recorded Sex Assigned at Not on file Legal Sex Male 6:35 PM TOBACCO BLENDER Gender Identity Not on file Sexual Orientation Not on file documented as of this encounter Plan of Treatment Not on file documented as of this encounter Results * EKG 12 LEAD (07/01/2024 12:36 PM TOBACCO BLENDER) Ventricular Rate 84 BPM EXTERNAL EKG Atrial Rate 84 BPM EXTERNAL EKG P-R Interval 158 ms EXTERNAL EKG QRS Duration 158 ms EXTERNAL EKG Q-T Duration 416 ms EXTERNAL EKG QTC CALCULATION 491 ms EXTERNAL EKG P [place] 7 degrees EXTERNAL EKG R [place] -66 degrees EXTERNAL EKG T [place] 89 degrees EXTERNAL EKG 07/01/2024 12:3 6 PM TOBACCO BLENDER Impressions EXTERNAL EKG - 07/01/2024 4:10 PM TOBACCO BLENDER Atrial-sensed ventricular-paced rhythm Abnormal ECG When compared with ECG of 25-JUL-2023 15:27, Vent. rate has increased BY 15 BPM Confirmed by Mushtaq Zurita ([id number]) on 07/01/2024 4:10:11 PM Narrative Procedure Note Mushtaq Zurita MD - 07/01/2024 IMPRESSION: Atrial-sensed ventricular-paced rhythm Abnormal ECG When compared with ECG of 25-JUL-2023 15:27, Vent. rate has increased BY 15 BPM Confirmed by Mushtaq Zurita ([id number]) on 07/01/2024 4:10:11 PM us Elsa Jeong DPM IMG ECG ORDERABLES Final Res ult EXTERNAL EKG documented in this encounter Visit Diagnoses Diagnosis Pre-op testing- Primary Preoperative examination, unspecified Pre-op testing Preoperative examination, unspecified documented in this encounter Care Teams Airplane Captain Relationship Specialty Start Date End Date Zia Ordonez MD PCP - General Obstetrics & Gynecology 06/16/24 documented as of this encounter
--- OUTSIDE RECORDS SUMMARY | 2024-09-01 11:04 | XMS_ITS ---
Author Organization [facility] Address [address] [place] [address] Care Team Providers Care [place] Redevelopment Site Manager Name Role Phone Jerica Boss Primary Care Provider [employer], [facility] Unavailable U ana rosa MenesesSagar Unavailable [phone] Allergies Allergen (clinical drug ingredient) Drug/Non Drug Allergy documented on EMR Reaction Allergy Type Onset Date Status penicillin (uncoded) hives Allergy Active Results Component Value Reference Range Notes Breathalyzer Reviewed date:08/28/2024 11:48:37 AM Interpretation:0.000 Performing Lab: Notes/Report: 0.000 FLAVIA 0.000 12 Panel Urine Drug Screen Reviewed date:08/28/2024 11:49:15 AM Interpretation: Performing Lab: Notes/Report: THC neg ZAYAR neg MOP (OPI) neg AMP POS MET POS BAR neg BZO neg MDMA neg MTD neg OXY neg PCP neg BUP neg QuantiFERON-TB Gold Plus (12 9709) (Not yet reviewed by provider) Interpretation: Performing Lab:[facility], [address] [facility], [place], Phone - [phone], Director - PhDRicchironi Notes/Report: QuantiFERON Incubation Incubation performed. QuantiFERON-TB Gold Plus Negative Negative No response to M tuberculosis antigens detected. Infection with M tuberculosis is unlikely, but high risk individuals should be considered for additional testing (ATS/IDSA/CDC Clinical Practice Guidelines, 2017). The reference range is an Antigen minus Nil result of <0.35 IU/mL. Chemiluminescence immunoassay methodology QuantiFERON Criteria QuantiFERON-TB Gold Plus is a qualitative indirect test for M tuberculosis infection (including disease) and is intended for use in conjunction with risk assessment, radiography, and other medical and diagnostic evaluations. The QuantiFERON-TB Gold Plus result is determined by subtracting the Nil value from either TB antigen (Ag) value. The Mitogen tube serves as a control for the test. QuantiFERON TB1 Ag Value 0.02 QuantiFERON TB2 Ag Value 0.03 QuantiFERON Nil Value 0.01 QuantiFERON Mitogen Value >10.00 CMP 14 Comprehensive Metabol ic Panel* (Not yet reviewed by provider) Interpretation: Performing Lab:[facility], [address] [facility], Phone - [phone], Director - [facility] Notes/Report: Glucose 148 70-99 mg/dL BUN 18 6-24 mg/dL Creatinine 0.93 0.76-1.27 mg/dL eGFR 98 >59 mL/min/1.73 BUN/Creatinine Ratio 19 9-20 Sodium 137 134-144 mmol/L Potassium 3.8 3.5-5.2 mmol/L Chloride 101 96-106 mmol/L Carbon Dioxide, Total 22 20-29 mmol/L Calcium 9.2 8.7-10.2 mg/dL Protein, Total 6.2 6.0-8.5 g/dL Albumin 4.3 3.8-4.9 g/dL Globulin, Total 1.9 1.5-4.5 g/dL Bilirubin, Total 0.3 0.0-1.2 mg/dL Alkaline Phosphatase 92 44-121 IU/L AST (SGOT) 32 0-40 IU/L ALT (SGPT) 34 0-44 IU/L CBC With Differential/Platel et* (Not yet reviewed by provider) Interpretation: Performing Lab:[facility] [place], [address] [facility], [place], Phone - [phone], Director - [facility] Notes/Report: WBC 6.0 3.4-10.8 x10E3/uL RBC 4.97 4.14-5.80 x10E6/uL Hemoglobin 15.4 13.0-17.7 g/dL Hematocrit 45.8 37.5-51.0 % MCV 92 79-97 fL MCH 31.0 26.6-33.0 pg MCHC 33.6 31.5-35.7 g/dL RDW 13.1 11.6-15.4 % Platelets 206 150-450 x10E3/uL Neutrophils 62 Not Estab. % Lymphs 26 Not Estab. % Monocytes 11 Not Estab. % Eos 1 Not Estab. % Basos 0 Not Estab. % Neutrophils (Absolute) 3.7 1.4-7.0 x10E3/uL Lymphs (Absolute) 1.6 0.7-3.1 x10E3/uL Monocytes(Absolute) 0.7 0.1-0.9 x10E3/uL Eos (Absolute) 0.1 0.0-0.4 x10E3/uL Baso (Absolute) 0.0 0.0-0.2 x10E3/uL Immature Granulocytes 0 Not Estab. % Immature Grans (Abs) 0.0 0.0-0.1 x10E3/uL Magnesium, Serum* (Not yet r eviewed by provider) Interpretation: Performing Lab:[facility] [address], Phone - [phone], Director - [facility] Notes/Report: Magnesium 2.0 1.6-2.3 mg/dL Phosphorus, Serum* (Not yet reviewed by provider) Interpretation: Performing Lab:[facility] [address], Phone - [phone], Director - [facility] Notes/Report: Phosphorus 2.7 2.8-4.1 mg/dL HIV Screen *HIV 1, 2 Ab, p24 Ag ([id number]) (Not yet reviewed by provider) Interpretation: Performing Lab:[facility] [place] [id number] [facility], Phone - [phone], Director - [facility] Notes/Report: HIV Ab/p24 Ag Screen Non Reactive Non Reactive HIV-1/HIV-2 antibodies and HIV-1 p24 antigen were NOT detected. There is no laboratory evidence of HIV infection. HIV Negative REASON FOR VISIT DETOX: METH Medications Medication [...] Status W/U Status Risk Notes Problem Overweight (535826722) Over weight (E66.3) Active confirmed Vital Signs Weight 177.2 lbs 08/28/2024 Height 66 in 08/28/2024 Blood pressure systolic 110 mm Hg 08/29/19 25 Blood pressure diastolic 72 mm Hg 025 Heart Rate 91 /min 08/28/2024 Oximetry 96 % 08/28/2024 Temperature 98.0 degrees Fahrenheit 08/29/19 25 Respiratory Rate 16 /min 08/28/2024 BMI 28.6 kg/m2 08/28/2024 Encounters Encounter Location Date Provider Diagnosis [place] [address] [place] [address] 08/28/2024 Sagar Meneses Routine general medical examination [...] Screen *HIV 1, 2 Ab, p24 Ag ([id number]) 08/28/2024 Phosphorus, Serum* 08/28/2024 Magnesium, Serum* 08/28/2024 CBC With Differential/Platelet* 08/29/19 25 CMP 14 Comprehensive Metabolic Panel* QuantiFERON-TB Gold Plus ([id number]) 2024 Next Appt Details Follow Up: prn, Reason: Provider Name:Radha Pendleton chapo, 09/03/2024 09:00:00 AM, [address] [place] [address], [phone], Progress Notes * Taye WHITAKERDOB: [birth year] (54 yo M)Acc No.[id number]:08/28/2024 Patient: Cher ASUNCIONTaye Provider: Torie Meneses, MSN, CONSERVATION AGENT, SPORTS STATISTICIAN-C :1970 A ge:54 Y S ex:Male Date:08/28/2024 Address:[address] [place] [address] Pcp:Jerica Boss Check In:11:05 AM BILINGUAL SPEECH LANGUAGE PATHOLOGIST Subjective: * Chief Complaints: * D ETOX: METH * HPI: S creening: Sequoyah Suicide Severity Rating Scale (LF) D o [...] not in excess. PCP: Dr. Zully Sorensen Retirement Plan Specialist: Dr. Villafana. * ROS: B asic ROS: [...] staff. G eneral Examination: GENERAL APPEARANCE: p rich, in no acute distress, nods off occasionally [...] nontender, nondistended, no masses palpable. MUSCULOSKELETAL: R ADMIEN upper and lower extremities. EXTREMITIES: n o [...] Screen *HIV 1, 2 Ab, p24 Ag ([id number]) (Collection Date & Time - 08/28/2024 11:50 [...] and physicals.?? 2.?Tuberculosis screening?LAB: QuantiFERON-TB Gold Plus ([id number]) (Collection Date & Time - 08/28/2024 11:50 AM) * Recommended Wellness and Pre vention Guidelines: * S tatus A lert L ast Done N ext Due A ction Taken N ONCOMPLIANT C holesterol screen (genl pop) 0 01/12/2018 0 08/28/2024 - N ONCOMPLIANT C olorectal cancer screening - 0 08/28/2024 - * Procedure Codes: 9 9000 SPECIMEN [id number] BODY MASS INDEX DULT54112 TB TEST, CELL IMMUN MEASURE * Preventive Medicine: Counseling: C are goal follow-up plan: BMI management provided Y es Above Normal BMI Follow-up L ifestyle education regarding diet * Follow Up: p rn * * Sign off status: Completed true * Provider: Torie Meneses, MSN, CONSERVATION AGENT, SPORTS STATISTICIAN-C Date: 0 08/28/2024 Generated for Flo germain/Angelica/eTransmitting on: 0 09/01/2024 11:04 AM CDT History and Physical Notes * HPI [...] not in excess. PCP: Dr. Zully Sorensen Retirement Plan Specialist: Dr. Villafana Screening Sequoyah Suicide Severity Rating Scale (LF) Do you [...]
--- OUTSIDE RECORDS SUMMARY | 2024-09-01 11:04 | XMS_ITS | Encounter Summary ---
Author Organization [facility] Address [address] [place] [address] Phone Care Team Providers Care Yeast Culture Developer Name Role Phone Zia Ordonez MD Primary Care Provider Encounter Details Date Type Department Care Team (Latest Contact Info) Description 06/20/2024 [facility] [address] [place] [address] Elsa Jeong, DPM [address] [place] [address] Pre-op testing (Primary Dx) Social History Tobacco Use Types Packs/Day Years Used Date Smoking Tobacco: Former Cigarettes Smokeless Tobacco: Former Alcohol Use Standard Drinks/Week Comments Yes 0 (1 standard drink = 0.6 oz pur e alcohol) Sexually Active Control Partners Comments Yes Female Sex and Gender Information Value Date Recorded Sex Assigned at Not on file Legal Sex Male 6:35 PM STATION AGENT Gender Identity Not on file Sexual Orientation Not on file documented as of this encounter Plan of Treatment Not on file documented as of this encounter Results * (ABNORMAL) BASIC METABOLIC PANEL W/ CALCIUM TOTAL (06/25/2024 12:26 PM STATION AGENT) SODIUM 138 136 - 145 mmol/L 06/25/2024 1:47 PM STATION AGENT [facility] POTASSIUM 4.2 3.5 - 5.1 mmol/L 06/25/2024 1:47 PM [facility] CHLORIDE 106 98 - 107 mmol/L 06/25/2024 1:47 PM [facility] CO2, VENOUS 24 22 - 30 mmol/L 06/25/2024 1:47 PM [facility] ANION GAP 12.2 <18.0 mmol/L 06/25/2024 1:47 PM STATION AGENT [facility] GLUCOSE 138(H) 70 - 99 mg/dL 06/25/2024 1:47 PM STATION AGENT [facility] BUN 20 8 - 26 mg/dL 06/25/2024 1:47 PM [facility] CREATININE, BLOOD 1.08 0.70 - 1.30 mg/dL 06/25/2024 1:47 PM [facility] BUN/CREATININE RATIO 19 12 - 20 ratio 06/25/2024 1:47 PM [facility] CALCIUM 9.2 8.7 - 10.5 mg/dL 06/25/2024 1:47 PM [facility] IS THE PATIENT REQUIRED TO BE FASTING? No 06/25/2024 1:47 PM [facility] GFR, ESTIMATED >60 >=60 06/25/2024 1:47 PM [facility] Comment: Creatinine Clearance is the preferred criteria for selecting drug dose adjustments in renally impaired patients. The GFR is provided as additional pertinent clinical information. GFR is reported in mL/min/1.73 sq m. Calculation based on the Chronic Kidney Disease Epidemiology Collaboration (CKD- EPI) equation refit without adjustment for race. GFR, EST. >60 >=60 025 1:47 PM [facility] GFR, EST. NONAFRICAN >60 >=60 06/25/2024 1:47 PM [facility] Blood Venipuncture / Unknown 06/25/2024 12:26 PM STATION AGENT 06/25/2024 12:57 PM STATION AGENT Elsa D Jean-Paul DPM CHEMISTRY ORDERABLES Final R esult [facility] [address] [place] [address] documented in this encounter Visit Diagnoses Diagnosis Pre-op testing- Primary Preoperative examination, unspecified documented in this encounter Care Teams Yeast Culture Developer Relationship Specialty Start Date End Date Zia Ordonez MD PCP - General Obstetrics & Gynecology 06/16/24 documented as of this encounter
--- OUTSIDE RECORDS SUMMARY | 2024-09-01 11:04 | XMS_ITS ---
Author Organization [facility] Address [address] [place] [address] Care Team Providers Care Beef Tagger Name Role Phone Jerica Boss [facility] Unavailable U francheskaailDiamond Saunders Unavailable [phone] REASON FOR VISIT PRAPRARE Assess Social History [...] phone, visiting friends or family, going to faith or club meetings) Less than once a week How stressed are you? Stress is when someone feels tense, nervous, anxious, or can\t sleep at night because their mind is troubled Not at all In the past year have you sp ent more than 2 nights in a row in a long term, residential, mcfp center, or juvenile correctional facility? No Are you a refugee? No What country are you from? [place] Do you feel physically and e motionally safe where you currently live? Yes In the past year, have you b een afraid of your partner or ex-partner? Yes PRAPARE Score: 8 Encounters Encounter Location Date Provider Diagnosis [address] [place] [address] 05/07/2024 Diamond Khan Plan Of Treatment Next Appt Details Provider Name:Radha Pendleton chapo, 09/03/2024 09:00:00 AM, [address], [address], Progress Notes * Taye WHITAKERDOB: [birth year] (53 yo M)Acc No.[id number]:05/07/2024 Patient: Taye DILLARD :1970 A ge:53 Y S ex:Male Address:[address] [place] [address], [address] Subjective: * Chief Complaints: * P RAPRARE [...] phone, visiting friends or family, going to faith or club meetings) L ess than once a week, H ow stressed are you? Stress is when someone feels tense, nervous, anxious, or can\t sleep at night because their mind is troubled N ot at all, I n the past year have you spent more than 2 nights in a row in a long term, residential, mcfp center, or juvenile correctional facility? N o, [...] Date: Generated for Flo germain/Angelica/Dianasmitting on: 0 09/01/2024 11:04 AM CDT
--- OUTSIDE RECORDS SUMMARY | 2024-09-01 11:05 | XMS_ITS | CONTINUITY OF CARE DOCUMENT ---
Author Name aixa kruse Address Unknown Organization [facility] Address [address] [place] [address] Phone [phone] Care Team Providers Care Lab Support Tech Name Role Phone Ledy NOEL, David Unavailable ESTHELA NOEL, KAITLIN Unavailable [phone] ESTHELA NOEL, KAITLIN Unavailable [phone] PROBLEMS Condition Status Date Provider Notes S/P [...] In-person encounter Office Visit David Villafana MD [facility] Cardiology examinationFoot painDiabetes mellitus, type 2 - In-person encounter Office Visit David Villafana MD [facility] - In-person encounter Office Visit David Villafana MD [facility] - In-person encounter Office Visit David Villafana MD [facility] - In-person encounter Office Visit David Villafana MD [facility] - In-person encounter Office Visit David Villafana MD [facility] Daytime hypersomnia - In-person encounter Office Visit David Villafana MD [facility] - In-person encounter Office Visit David Villafana MD [facility] - In-person encounter Office Visit David Villafana MD [facility] Defibrillator - In-person encounter Office Visit David Villafana MD, [facility] Chest pain-type to be determinedAbdominal painScreening, diabetes mellitusHypertensionSystolic CHF - In-person encounter Office Visit David Villafana MD [facility] - In-person encounter Office Visit David Samson Office - In-person encounter Office Visit David Villafana MD [facility] Dilated Cardiomyopathy, nonischemic EF 15% - In-person encounter Office Visit David Villafana MD [facility] - In-person encounter Office Visit David Villafana MD [facility] - In-person encounter Office Visit David Villafana MD [facility] - In-person encounter Office Visit Sundeep Cason MD [facility] Office Dilated Cardiomyopathy, nonischemic EF 15%Tobacco abuseLV systolic dysfunction - In-person encounter Office Visit Norman Miller MD [facility] Office G E R DArthritis - osteoAbnormal electrocardiogramDrug abuse- methLBBB VITAL SIGNS Date Observation Value Provider Body Mass Index (Ratio) 28.24 kg/m2 Henrry Glaser blood pressure, diastolic 75 mm[Hg] [facility], systolic 109 mm[Hg] Karime [facility]oSelect [facility] oxygen saturation, oximetry 97 % [facility] pulse rate 79 /min [facility] respiratory rate E&M 12 /min [facility] weight E&M 175 [lb_av] [facility] height E&M 66 [in_i] [facility] blood pressure, cuff size regular An [facility] Body Mass Index (Ratio) 26.47 kg/m2 Rosales [...] Mass Index (Ratio) 26.47 kg/m2 Rosales al [place] blood pressure, cuff size regular Ke rri [...] Aimee kLog pulse rate 77 /min Ирина [place] blood pressure, cuff size regular Fa [facility] blood pressure, diastolic 86 mm[Hg] Fa [facility] blood pressure, systolic 130 mm[Hg] Joel [facility] oxygen saturation, oximetry 99 % Ирина [place] respiratory rate E&M 16 /min Ирина Philip iller height E&M 66 [in_i] Ирина [place] Body Mass Index (Ratio) 28.57 kg/m2 Henrry [...] blood pressure, systolic 125 mm[Hg] Vivek maureen [place] blood pressure, diastolic 68 mm[Hg] St leland [place] respiratory rate E&M 16 /min Momo ie [place] pulse rate 92 /min Deborah Lohma n weight E&M 200 [lb_av] Deborah [facility], oximetry 96 % Deborah [place] blood pressure, cuff size large St andree [place] height E&M 66 [in_i] Deborah Lohma n [...] trinityenenfelder pulse rate 70 /min Rosa Gruenenfe [facility] height E&M 66 [in_i] Rosa Gruenenfe er [...] blood pressure, cuff size regular Ke rri Gómezneaylshabrattleboro memorial hospitaljitendra blood pressure, diastolic 60 mm[Hg] Ke rri Robbuenenfbrattleboro memorial hospitaler blood pressure, systolic 102 mm[Hg] Tony ri Maynor oxygen saturation, oximetry 96 % Rosa [place]nor respiratory rate E&M 16 /min Rosa Karol mo pulse rate 79 /min Rosa Lita [facility] weight E&M 163 [lb_av] Rosa [place]ane [facility] height E&M 66 [in_i] Rosa Lita [facility] Body Mass Index (Ratio) 24.85 kg/m2 Fco [...] Mariola Tank sley temperature E&M 97.8 [degF] Mariola bauer Body Mass Index (Ratio) 26.47 kg/m2 [...] LinkLogic 0-149 cholesterol, serum 172 mg/dL [employer] [phone]/05/ 23 alanine aminotransferase (SGPT), serum 31 1/L [...] [employer]Logic 3.5-5.2 sodium, serum 141 mmol/L [employer] [phone]/05/ 23 urea nitrogen/creatinine ratio, serum 20 [employer]Logic [...] Not Estab. platelet count 215 X10E3/UL [employer] [phone]/05/ 23 red blood cell distribution width 12.2 [...] [employer]Logic 0-149 cholesterol, serum 167 mg/dL [employer] [phone]/07/ 24 calcium, serum 9.5 mg/dL [employer] 8.7-10.2 carbon dioxide, venous blood 22 mmol/L [employer] 20-29 chloride, serum 102 mmol/L [employer] 96-106 potassium, serum 4.8 mmol/L [employer] 3.5-5.2 sodium, serum 142 mmol/L [employer] [phone]/07/ 24 urea nitrogen/creatinine ratio, serum 24 LinkLogic [...] TAKE 1 TABLET BY MOUTH ONCE DAILY [facility] levofloxacin 500 mg tablet active Take 1 [...] 1 TABLET BY MOUTH TWICE A DAY [facility] J[facility] 10 mg tablet active TAKE 1 TABLET BY MOUTH EVERY DAY [facility] furosemide 20 mg tablet completed TAKE 1 TABLET BY MOUTH EVERY DAY - [facility] Entresto 24-26 mg tablet active TAKE ONE (1) TABLET BY MOUTH TWICE DAILY Anthony Irvint Jardiance 10 mg tablet completed TAKE 1 TABLET BY MOUTH ONCE DAILY - [facility] carvedilol 12.5 mg tablet completed TAKE ONE (1) TABLET BY MOUTH TWICE DAILY - [facility] spironolactone 25 mg tablet active TAKE 1/2 [...] BY MOUTH ONCE A DAY - [facility] sim[facility]atin 40 mg tablet completed Take 1 tablet by mouth at bedtime - [facility] simvastatin 40 mg tablet completed TAKE 1 TABLET BY MOUTH EVERY NIGHT AT BEDTIME - Rosa Mcguire Coreg 12.5 mg tablet completed TAKE 1 TABLET BY MOUTH TWICE DAILY - Rosa Mcguire Entresto 24-26 mg tablet completed Take 1 tablet by mouth twice a day - [facility] spironolactone 25 mg tablet completed Take 0.5 tablet by mouth once a day - [facility] Entresto 24-26 mg tablet completed 1 [...] Willard NP cigarette use yes Nancy ham [employer] smoking status Current every day smoker Torie katizhen Montse [employer] smoking, year quit 2019 Deborah Rosa smoking [...] cess ation, patient education and counseling yes Ynai Barraza smoking history, tot al pack/day 2 [...] Policy type / Coverage type Candido red alliance party ID [employer] [facility] Medicaid [id number] ADVANCE DIRECTIVES Name Date DISCUSSED - NO DECISION MADE TREATMENT PLAN Date Name Performer [id number],B, H is updated medication list for this [...] by mouth twice daily David Villafana MD [id number],C,L VEF 20 % today O rders: 9 9215 HIGH 40-54min (CPT-97088) E KG (CPT-69335) S chedule Followup (*) C omplete Echo (62468) David Villafana MD [id number],C,p t reports that he has been making 'some destructive life choices'. he states that he is going into detox on Monday. He doesn't have any real CV issues or concerns. he denies any CP, SOB, dizziness, palpitations. encouraged pt to complete detox as planned. emphasis placed on the importance of continuing his cardiac meds. Nancy Willard NP [id number],C,denies any fu rther use Nancy Willard NP [id number],C,o besity, snoring, excessive daytime sleepiness. will check home sleep study Nancy Willard NP [id number],C,see above Maddie Willard NP [id number],C, B P today: 125/68 P rior BP: [...] by mouth once a day Nancy Willard [employer] [id number],C,see above #3 Nancy Willard NP [id number],C,E CHO 04/01/22 C ONCLUSIONS: 1 . Abnormal [...] systolic pressure is 24.0 mmHg. Nancy Willard [employer] [id number],C,see above Maddie Willard [employer] [id number],C, H is updated medication list for this problem includes: Entresto 24-26 Mg Oral Tablet (Sacubitril-valsartan) ..... One tab twice daily. stop losartan. Coreg 12.5 Mg Oral Tablet (Carvedilol) ..... One tab. twice daily Spironolactone 25 Mg Oral Tablet (Spironolactone) ..... Half a tablet a day Furosemide 20mg Tablets (Furosemide) ..... Take 1 tablet by mouth every day Henrry Glaser [id number],S, Henrry Cheung i [id number],C,B P is elevated but he states it normally controlled. BP today: 147/132 P rior BP: 158/100 (10/08/2020) Labs Reviewed: C reat: 1.24 (10/19/2019) C hol: 172 (10/19/2019) HDL: 67 (10/19/2019) Henrry Cheungi [id number],C, P rior BP: 158/100 (10/08/2020) Labs Reviewed: C reat: 1.24 (10/19/2019) C hol: 172 (10/19/2019) HDL: 67 (10/19/2019) [facility] [id number],C,Will recheck echo. [facility] [id number],C, S table. On Coreg, Losartan, Aldactone. Hen[facility]ry [facility] [id number],C, O rders: Karol johnson No Charge (CPT-94138) David Villafana MD [id number],C, H is updated medication list for this problem includes: Coreg 12.5 Mg Oral Tablet (Carvedilol) ..... One tab. twice daily David Villafana MD [id number],S, David frank MD [id number],S, David frank MD Electrophysiology:Th is visit has [...] Electrophysiology:Echo was done today showing EF 20% [facility]:Echo done toda y shows EF 20% [facility] Electrophysiology:Th is visit has been a part [...] 500 mg once daily for 10 days [facility]: T he Patient was reencouraged to stop smoking. [facility]:Suni navarro, given his foot pain and [...] O rders: P reop clearance, phn/internet/emr >5min (18313) David Villafana MD Surgery Clearance - see note: E xtensive review of the pertinent previous and curent labs , EKGs, cardiac tesing and imaging data was done by Dr. Ledy moscoso additional testing is needed cher martell fax clearance for procedure Attn: Ms. Hamm , Phone #[phone]. H is updated medication list for this [...] Nelson Electrophysiology:EF 20 on last echo Edu [place] Electrophysiology:ad ding SGLT-2 inhibitor H is updated [...] today O rders: 9 9215 HIGH 40-54min (CPT-82444) E KG (CPT-49520) S chedule Followup (*) C omplete Echo (56621) David Villafana MD Electrophysiology:pt reports that he [...] Electrophysiology: O rders: Karol johnson No Charge (CPT-88491) David Villafana MD Electrophysiology: H is updated [...] placement after pt is out of the halfway. O rders: E KG (CPT-86277) C XR- PA/Lat (CPT-26310) C omplete Echo (CPT-07122) 9 9215 HIGH 40-54min (CPT-25894) David Villafana MD needs to stop losart an and start entresto 24/26 mg PO bid:Stable. On Coreg, Losartan, Aldactone. O rders: 9 9215 HIGH 40-54min (CPT-94857) His updated medication list for this problem [...] least a month due to being in m[facility] for primary prevention of sudden cardiac . O rders: 9 9215 HIGH Complex (CPT-87267) David Villafana MD Electrophysiology Fo llow up [...] lead placement. Orders: 9 9215 HIGH Complex (CPT-22529) David Villafana MD TeleHealth: H is updated [...] has been given to the patient. [email or web address]-content/[email or web address] 11/[email or web address] Pt has been wearing life vest. severe [...] po bid to 6.25 mg po bid [facility] Cardiology:The patie nt is recommended to have ICD implanted. The risks and benefits have been discussed with the patient in this shared decision making encounter. A copy of the following evidence based decision tool on ICD has been given to the patient. [email or web address]-content/uploads/201 11/01/[email or web address]-[email or web address] Pt has been wearing life vest. severe dyssynchrony, mildly prolonged QRS of more than 162ms. [facility] Cardiology: H is updated medication list for this problem includes: Coreg 6.25 Mg Oral Tablet (Carvedilol) ..... One tab. twice daily- stop betoprolol , and double the dose of coreg from 3.125 mg po bid to 6.25 mg po bid [facility] Cardiology: H is updated medication list for this problem includes: Coreg 6.25 Mg Oral Tablet (Carvedilol) ..... One tab. twice daily- stop betoprolol , and double the dose of coreg from 3.125 mg po bid to 6.25 mg po bid [facility] Cardiology [facility] Electrophysiology fo llow up : H is updated medication list for this problem includes: Metoprolol Succinate Er 25 Mg Oral Tablet Extended Release 24 Hour (Metoprolol succinate) ..... One tab daily [facility] Electrophysiology fo llow up : H is updated medication list for this problem includes: Metoprolol Succinate Er 25 Mg Oral Tablet Extended Release 24 Hour (Metoprolol succinate) ..... One tab daily Orders: E KG (CPT-73625) [facility] Electrophysiology fo llow up :Conclusions: 1 . [...] follow up- faxed per pt request to [phone]:Will order ProBNP, CMP, and recheck echo. Currently [...] follow up- faxed per pt request to [phone]:Reports continued drug abuse. Artur Melara EP follow up- faxed per pt request to [phone]:Will order ProBNP, CMP, and recheck echo Echo [...] follow up- faxed per pt request to [phone]:Per 12/13/2018 echo: Septal `bounce` consistent with bundle [...] EKG during evaluation for abdominal pain at [facility] chris Miller MD Cardiology: initial evaluation due to an abnormal EKG during evaluation for abdominal pain at [facility] Norman Miller MD Date Name Aorta Duplex [...]
--- OUTSIDE RECORDS SUMMARY | 2024-09-01 11:05 | XMS_ITS | Clinical Summary ---
Author Organization [facility] Address [address] [place] [address] Care Team Providers Care Commercial Reporter Name Role Phone Melquiades Hauser MD Primary Care Provider [phone] Source Comments [facility],non-owned Affiliates and Associated Physician Practices is amultiple site organization consisting of ambulatory clinics and hospital sitesin [place], [place], [place] and [place]. This disclosure is being madepursuant to the Care Everywhere program and may not contain all information available regarding this patient. Last updated 18.[facility] Allergies Active Allergy Reactions Criticality Noted Date [...] age to complete this topic Care Teams Commercial Reporter Relationship Specialty Start Date End Date Melquiades Hauser MD [address] [place] [address] PCP - General 01/01/16
--- OUTSIDE RECORDS SUMMARY | 2024-09-01 11:05 | XMS_ITS | Data Portability ---
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 Plan of Treatment Reminders Order Date Submit Date Provider Last Modified By Organization Details Last Modified Time Details Appointments ANY 15 2024 01:30P M Hector Mathias MD Not available Not available Not available ANY 2024 01:00P Cedrick Conteh MD Not available Not available Not available Lab PSA, total, serum or plasma 2024 025 [email or web address] [facility], [address] [place] [address], [address], [place], [address], 08/26/2024 09:53:28 HbA1c (hemogl obin A1c), blood 2023 024 [email or web address] [facility], [address] [place] [address], [facility] [address], [place], [address], 04/24/2024 11:26:07 lipid panel, serum 2023 024 [email or web address] [facility], [address] [place] [address], [address], [place], [address], 04/24/2024 11:26:07 CMP, serum or plasma 2023 024 [email or web address] [facility], [address] [place] [address], [address], [place], [address], 04/24/2024 11:26:07 microal bumin, urine 2023 024 [facility], [address], [address], [place], [address], 04/24/2024 11:26:07 Referral None recorde d. Procedures None recorde d. Surgeries None recorde d. Imaging None recorde d. Medication Orders flutica sone propion ate 50 mcg/act uation nasal spray,s uspensi on 2024 [id number], [id number], [address], 08/12/2024 16:36:12 omepraz ole 20 mg capsule ,delaye d release 2024 [facility], [address] [place] [address], [address], [place], [address], 08/21/2024 17:18:15 Zithrom ax Z-Ramo 250 mg tablet 2023 025 [id number], [id number], [address], 08/05/2024 16:47:54 flutica sone propion ate 50 mcg/act uation nasal spray,s uspensi on 2023 024 [id number], [id number], [address], 03/26/2024 15:31:04 cetiriz ine 10 mg tablet 2023 024 [id number], [id number], [address], 03/26/2024 15:31:01 Nexium 40 mg capsule ,delaye d release 2023 024 [facility], [address], [address], [place], [address], 08/06/2024 10:17:48 metform in ER 500 mg tablet, extende d release 24 hr 2023 024 [facility], [address], [address], [place], [address], 12/12/2023 13:41:30 OneTouc h Ultra Test strips 2023 [facility] [address] In [facility], [address] [facility], [place], [place], [id number], 12/06/2023 17:36:25 baclofe n 10 mg tablet 2023 [email or web address] [facility], [address], [address], [place], [address], 12/06/2023 17:31:19 Patient TargetsNo targets recorded. Patient Instructions Encounter Date Encounter Id Patient Instructions Last Modified By Organization Details Last Modified Time 03/07/2024 [id number] A healthy lifestyle: care instructions Not available 03/07/2024 18:01:24 08/05/2024 [id number] learning about type 2 diabetes [email or web address] Not available 08/05/2024 17:17:57 type 2 diabetes: care instructions [email or web address] Not available 08/05/2024 17:17:57 shortness of breath: care instructions [email or web address] Not available 08/05/2024 17:17:57 Reason for Referral None Reported. Results Created Date Observation Date Name Description Value Unit Range Abnormal Flag Note LastModifiedBy Organization Detail LastModifiedTime 06/25/1906/25/2024 Basic metab olic 2000 panel - Serum or Plasm a sodium [moles/volum e] in serum or plasma 138 mmol/ L low: 136mmo l/Lhig h: 145mmo l/L SODIU M 138 136 - 145 mmol/ L 06/25 1:47 PM [employer] [facility] Not Available Not Available 07/22/2024 03:36:10 06/25/19 25 06/25/2024 Basic metab olic 1999 panel - Serum or Plasm a potassium [moles/volum e] in serum or plasma 4.2 mmol/ L low: 3.5mmo l/Lhig h: 5.1mmo l/L POTAS SIUM 4.2 3.5 - 5.1 mmol/ L 06/25 1:47 PM [employer] [facility] Not Available Not Available 07/22/2024 03:36:10 06/25/19 25 06/25/2024 Basic metab olic 2000 panel - Serum or Plasm a chloride [moles/volum e] in serum or plasma 106 mmol/ L low: 98mmol /Lhigh : 107mmo l/L CHLOR JENNY 106 98 - 107 mmol/ L 06/25 1:47 PM [employer] [facility] Not Available Not Available 07/22/2024 03:36:10 06/25/19 25 06/25/2024 Basic metab olic 2000 panel - Serum or Plasm a carbon dioxide, total [moles/volum e] in serum or plasma 24 mmol/ L low: 22mmol /Lhigh : 30mmol /L CO2, VENOU S 24 22 - 30 mmol/ L 06/25 1:47 PM [employer] [facility] Not Available Not Available 07/22/2024 03:36:10 06/25/19 25 06/25/2024 Basic metab olic 1999 panel - Serum or Plasm a anion gap in serum or plasma 12.2 mmol/ L high: 18mmol /L ANION GAP 12.2 <18.0 mmol/ L 06/25 1:47 PM [employer] [facility] Not Available Not Available 07/22/2024 03:36:10 06/25/19 25 06/25/2024 Basic metab olic 2000 panel - Serum or Plasm a glucose [mass/volume ] in serum or plasma 138 mg/dL low: 70mg/d Lhigh: 99mg/d L high GLUCO SE 138 (H) 70 - 99 mg/dL 06/25 1:47 PM [employer] [facility] [employer] [facility] Not Available Not Available 07/22/2024 03:36:10 06/25/19 25 06/25/2024 Basic metab olic 2000 panel - Serum or Plasm a urea nitrogen [mass/volume ] in serum or plasma 20 mg/dL low: 8mg/dL high: 26mg/d L BUN 20 8 - 26 mg/dL 06/25 1:47 PM [employer] [facility] [employer] [facility] Not Available Not Available 07/22/2024 03:36:10 06/25/19 25 06/25/2024 Basic metab olic 2000 panel - Serum or Plasm a creatinine [mass/volume ] in serum or plasma 1.08 mg/dL low: 0.7mg/ dLhigh : 1.3mg/ dL CREAT ININE , BLOOD 1.08 0.70 - 1.30 mg/dL 06/25 1:47 PM [employer] [facility] [employer] [facility] Not Available Not Available 07/22/2024 03:36:10 06/25/19 25 06/25/2024 Basic metab olic 2000 panel - Serum or Plasm a urea nitrogen/cre atinine [mass ratio] in serum or plasma 19 text: 12 - 20 ratio BUN/C REATI NINE RATIO 19 12 - 20 ratio 06/25 1:47 PM [facility] [employer] [facility] Not Available Not Available 07/22/2024 03:36:10 06/25/19 25 06/25/2024 Basic metab olic 2000 panel - Serum or Plasm a calcium [mass/volume ] in serum or plasma 9.2 mg/dL low: 8.7mg/ dLhigh : 10.5mg /dL CALCI UM 9.2 8.7 - 10.5 mg/dL 06/25 1:47 PM [employer] [facility] [employer] [facility] Not Available Not Available 07/22/2024 03:36:10 06/25/19 25 06/25/2024 Basic metab olic 2000 panel - Serum or Plasm a IS the patient required to BE fasting? No IS THE PATIE NT REQUI RED TO BE FASTI NG? No 06/25 1:47 PM [employer] [facility] [employer] [facility] R LAB Not Available Not Available 07/22/2024 03:36:10 06/25/19 25 06/25/2024 Basic metab olic 2000 panel - Serum or Plasm a glomerular filtration rate/1.73 sq M.predicted among non-blacks [volume rate/area] in serum, plasma or blood by creatinine-b ased formula (MDRD) low: 60 GFR, ESTIM ATED >60 >=60 06/25 1:47 PM [employer] [facility] Not Available Not Available 07/22/2024 03:36:10 06/25/19 25 06/25/2024 Basic metab olic 2000 panel - Serum or Plasm a glomerular filtration rate/1.73 sq M.predicted among blacks [volume rate/area] in serum, plasma or blood by creatinine-b ased formula (MDRD) low: 60 GFR, EST. AFRIC AN >60 >=60 06/25 1:47 PM [employer] [facility] Not Available Not Available 07/22/2024 03:36:10 06/25/19 25 06/25/2024 Basic metab olic 2000 panel - Serum or Plasm a glomerular filtration rate/1.73 sq M.predicted among non-blacks [volume rate/area] in serum, plasma or blood by creatinine-b ased formula (MDRD) low: 60 GFR, EST. NONAF RICAN >60 >=60 06/25 1:47 PM [facility] [employer] [facility] R LAB Not Available Not Available 07/22/2024 03:36:10 06/25/19 25 06/25/2024 Basic metab olic 2000 panel - Serum or Plasm a interpretati on and review of laboratory results Abnorm al Not Available Not Available 03:36:10 07/25/19 25 07/25/2024 CBC W Auto Diffe rusty al panel - Blood leukocytes [#/volume] in blood by automated count 6.96 text: 4.00 - 12.00 10(3)/ mcL WBC 6.96 4.00 - 12.00 10(3) /mcL 07/25 12:11 AM [facility] Not Available Not Available 07/25/2024 12:22:11 07/25/19 25 07/25/2024 CBC W Auto Diffe renti al panel - Blood erythrocytes [#/volume] in blood by automated count 4.65 text: 4.40 - 5.80 10(6)/ mcL RBC 4.65 4.40 - 5.80 10(6) /mcL 07/25 12:11 AM [facility] Not Available Not Available 07/25/2024 12:22:11 07/25/19 25 07/25/2024 CBC W Auto Diffe renti al panel - Blood hemoglobin [mass/volume ] in blood 14.5 g/dL low: 13g/dL high: 16.5g/ dL HEMOG LOBIN (HGB) 14.5 13.0 - 16.5 g/dL 07/25 12:11 AM [facility] Not Available Not Available 07/25/2024 12:22:11 07/25/19 25 07/25/2024 CBC W Auto Diffe ricciti al panel - Blood hematocrit [volume fraction] of blood by automated count 42 % low: 38%hig h: 50% HEMAT OCRIT (HCT) 42.0 38.0 - 50.0 % 07/25 12:11 AM [facility] Not Available Not Available 07/25/2024 12:22:11 07/25/19 25 07/25/2024 CBC W Auto Diffe renti al panel - Blood MCV [entitic volume] by automated count 90.3 fL low: 82fLhi gh: 96fL MCV 90.3 82.0 - 96.0 fL 07/25 12:11 AM [facility] Not Available Not Available 07/25/2024 12:22:11 07/25/19 25 07/25/2024 CBC W Auto Diffe renti al panel - Blood MCH [entitic mass] by automated count 31.2 pg low: 26pghi gh: 32pg MCH 31.2 26.0 - 32.0 pg 07/25 12:11 AM [facility] Not Available Not Available 07/25/2024 12:22:11 07/25/19 25 07/25/2024 CBC W Auto Diffe renti al panel - Blood MCHC [mass/volume ] by automated count 34.5 g/dL low: 31g/dL high: 36g/dL MCHC 34.5 31.0 - 36.0 g/dL 07/25 12:11 AM [facility] Not Available Not Available 07/25/2024 12:22:11 07/25/19 25 07/25/2024 CBC W Auto Diffe renti al panel - Blood platelets [#/volume] in blood 186 text: 140 - 440 10(3)/ mcL PLATE LET COUNT 186 140 - 440 10(3) /mcL 07/25 12:11 AM [facility] Not Available Not Available 07/25/2024 12:22:11 07/25/19 25 07/25/2024 CBC W Auto Diffe renti al panel - Blood erythrocyte distribution width [ratio] by automated count 12.6 % low: 11.8%h igh: 15.5% RDW 12.6 11.8 - 15.5 % 07/25 12:11 AM [facility] Not Available Not Available 07/25/2024 12:22:11 07/25/19 25 07/25/2024 CBC W Auto Diffe renti al panel - Blood platelet mean volume [entitic volume] in blood by automated count 8.5 fL low: 8fLhig h: 12.6fL MPV 8.5 8.0 - 12.6 fL 07/25 12:11 AM [facility] Not Available Not Available 07/25/2024 12:22:11 07/25/19 25 07/25/2024 CBC W Auto Diffe renti al panel - Blood neutrophils/ 100 leukocytes in blood by automated count 60.7 % low: 40%hig h: 68% NEUTR OPHIL S 60.7 40.0 - 68.0 % 07/25 12:11 AM [employer] [facility] Not Available Not Available 07/25/2024 12:22:11 07/25/19 25 07/25/2024 CBC W Auto Diffe renti al panel - Blood lymphocytes/ 100 leukocytes in blood by automated count 28.7 % low: 19%hig h: 49% LYMPH OCYTE S 28.7 19.0 - 49.0 % 07/25 12:11 AM [employer] [facility] Not Available Not Available 07/25/2024 12:22:11 07/25/19 25 07/25/2024 CBC W Auto Diffe renti al panel - Blood monocytes/10 0 leukocytes in blood by automated count 8.2 % low: 3%high : 13% MONOC YTES 8.2 3.0 - 13.0 % 07/25 12:11 AM [employer] [facility] Not Available Not Available 07/25/2024 12:22:11 07/25/19 25 07/25/2024 CBC W Auto Diffe renti al panel - Blood eosinophils/ 100 leukocytes in blood by automated count 2 % low: 0%high : 8% EOSIN OPHIL S 2.0 0.0 - 8.0 % 07/25 12:11 AM [facility] Not Available Not Available 07/25/2024 12:22:11 07/25/19 25 07/25/2024 CBC W Auto Diffe renti al panel - Blood basophils/10 0 leukocytes in blood by automated count 0.4 % low: 0%high : 1% BASOP HILS 0.4 0.0 - 1.0 % 07/25 12:11 AM [employer] [facility] Not Available Not Available 07/25/2024 12:22:11 07/25/19 25 07/25/2024 CBC W Auto Diffe renti al panel - Blood neutrophils [#/volume] in blood by automated count 4.22 text: 1.40 - 5.30 10(3)/ mcL ABSOL TLINGIT & HAIDA NEUTR OPHIL S 4.22 1.40 - 5.30 10(3) /mcL 07/25 12:11 AM [employer] [facility] LAB Not Available Not Available 07/25/2024 12:22:11 07/25/19 25 07/25/2024 CBC W Auto Diffe renti al panel - Blood lymphocytes [#/volume] in blood by automated count 2 text: 0.90 - 3.30 10(3)/ mcL ABSOL TLINGIT & HAIDA LYMPH OCYTE S 2.00 0.90 - 3.30 10(3) /mcL 07/25 12:11 AM [facility] Not Available Not Available 07/25/2024 12:22:11 07/25/19 25 07/25/2024 CBC W Auto Diffe renti al panel - Blood monocytes [#/volume] in blood by automated count 0.57 text: 0.10 - 0.90 10(3)/ mcL ABSOL TLINGIT & HAIDA MONOC YTES 0.57 0.10 - 0.90 10(3) /mcL 07/25 12:11 AM [facility] Not Available Not Available 07/25/2024 12:22:11 07/25/19 25 07/25/2024 CBC W Auto Diffe renti al panel - Blood eosinophils [#/volume] in blood by automated count 0.14 text: 0.00 - 0.50 10(3)/ mcL ABSOL TLINGIT & HAIDA EOSIN OPHIL 0.14 0.00 - 0.50 10(3) /mcL 07/25 12:11 AM [facility] Not Available Not Available 07/25/2024 12:22:11 07/25/19 25 07/25/2024 CBC W Auto Diffe renti al panel - Blood basophils [#/volume] in blood by automated count 0.03 text: 0.00 - 0.10 10(3)/ mcL ABSOL TLINGIT & HAIDA BASOP HILS 0.03 0.00 - 0.10 10(3) /mcL 07/25 12:11 AM [facility] Not Available Not Available 07/25/2024 12:22:11 07/25/19 25 07/25/2024 CBC W Auto Diffe renti al panel - Blood nucleated erythrocytes /100 leukocytes [ratio] in blood 0 NRBC PER 100 WBC 0 07/25 12:11 AM [employer] [facility] [employer] [facility] Not Available Not Available 07/25/2024 12:22:11 07/25/19 25 07/25/2024 Eryth rocyt e sedim entat ion rate erythrocyte sedimentatio n rate 23 mm/h high: 20mm/h high ESR (SED RATE, ERYTH ROCYT E SEDIM ENTAT ION RATE) 23 (H) <20 mm/h 07/25 12:14 AM [employer] [facility] [employer] [facility] Not Available Not Available 07/25/2024 12:22:11 07/25/19 25 07/25/2024 Eryth rocyt e sedim entat ion rate interpretati on and review of laboratory results Abnorm al Not Available Not Available 12:22:11 07/25/19 25 07/25/2024 Fibri n D-dim er FEU [Mass /volu me] in Plate let poor plasm a fibrin D-dimer feu [mass/volume ] in platelet poor plasma 0.8 text: <0.50 mcg/mL feu high D DIMER 0.80 (H) <0.50 mcg/m L FEU 07/25 12:25 AM [employer] [facility] [employer] [facility] Not Available Not Available 07/25/2024 12:22:11 07/25/1907/25/2024 Fibri n D-dim er FEU [Mass /volu me] in Plate let poor plasm a Unknown Analyte The FDA has approv ed this method to exclud e the diagno sis of DVT and/or PE at the cutoff value of <0.50 mcg/mL FEU. The FDA has appro day this metho d to exclu de the diagn osis of DVT and/o r PE at the cutof f value of <0.50 mcg/m L FEU. Not Available Not Available 07/25/2024 12:22:11 07/25/19 25 07/25/2024 Fibri n D-dim er FEU [Mass /volu me] in Plate let poor plasm a interpretati on and review of laboratory results Abnorm al Not Available Not Available 12:22:11 07/25/19 25 07/25/2024 Compr ehens elida metab olic 1999 panel - Serum or Plasm a sodium [moles/volum e] in serum or plasma 142 mmol/ L low: 136mmo l/Lhig h: 145mmo l/L SODIU M 142 136 - 145 mmol/ L 07/25 12:33 AM [employer] [facility] Not Available Not Available 07/25/2024 12:22:10 07/25/1907/25/2024 Compr ehens elida metab olic 1999 panel - Serum or Plasm a potassium [moles/volum e] in serum or plasma 3.6 mmol/ L low: 3.5mmo l/Lhig h: 5.1mmo l/L POTAS SIUM 3.6 3.5 - 5.1 mmol/ L 07/25 12:33 AM [employer] [facility] Not Available Not Available 07/25/2024 12:22:10 07/25/1907/25/2024 Compr ehens elida metab olic 1999 panel - Serum or Plasm a chloride [moles/volum e] in serum or plasma 111 mmol/ L low: 98mmol /Lhigh : 107mmo l/L high CHLOR JENNY 111 (H) 98 - 107 mmol/ L 07/25 12:33 AM [employer] [facility] Not Available Not Available 07/25/2024 12:22:10 07/25/19 25 07/25/2024 Compr ehens elida metab olic 1999 panel - Serum or Plasm a carbon dioxide, total [moles/volum e] in serum or plasma 20 mmol/ L low: 22mmol /Lhigh : 30mmol /L low CO2, VENOU S 20 (L) 22 - 30 mmol/ L 07/25 12:33 AM [employer] [facility] Not Available Not Available 07/25/2024 12:22:10 07/25/19 25 07/25/2024 Compr ehens elida metab olic 1999 panel - Serum or Plasm a anion gap in serum or plasma 14.6 mmol/ L high: 18mmol /L ANION GAP 14.6 <18.0 mmol/ L 07/25 12:33 AM [facility] LAB Not Available Not Available 07/25/2024 12:22:10 07/25/19 25 07/25/2024 Compr ehens elida metab olic 1999 panel - Serum or Plasm a glucose [mass/volume ] in serum or plasma 134 mg/dL low: 70mg/d Lhigh: 99mg/d L high GLUCO SE 134 (H) 70 - 99 mg/dL 07/25 12:33 AM [facility] [employer] [facility] Not Available Not Available 07/25/2024 12:22:10 07/25/19 25 07/25/2024 Compr ens elida metab olic 1999 panel - Serum or Plasm a urea nitrogen [mass/volume ] in serum or plasma 23 mg/dL low: 8mg/dL high: 26mg/d L BUN 23 8 - 26 mg/dL 07/25 12:33 AM [facility] [employer] [facility] Not Available Not Available 07/25/2024 12:22:10 07/25/19 25 07/25/2024 Compr Connequity elida metab olic 1999 panel - Serum or Plasm a creatinine [mass/volume ] in serum or plasma 1.07 mg/dL low: 0.7mg/ dLhigh : 1.3mg/ dL CREAT ININE , BLOOD 1.07 0.70 - 1.30 mg/dL 07/25 12:33 AM [facility] [employer] CENTE R LAB Not Available Not Available 07/25/2024 12:22:10 07/25/19 25 07/25/2024 Compr LilaKutuens elida metab olic 2000 panel - Serum or Plasm a urea nitrogen/cre atinine [mass ratio] in serum or plasma 21 text: 12 - 20 ratio high BUN/C REATI NINE RATIO 21 (H) 12 - 20 ratio 07/25 12:33 AM [facility] [employer] [facility] Not Available Not Available 07/25/2024 12:22:10 07/25/19 25 07/25/2024 Compr ehens elida metab olic 1999 panel - Serum or Plasm a protein [mass/volume ] in serum or plasma 6.6 g/dL low: 6g/dLh igh: 8g/dL TOTAL PROTE IN 6.6 6.0 - 8.0 g/dL 07/25 12:33 AM [facility] [employer] [facility] Not Available Not Available 07/25/2024 12:22:10 07/25/19 25 07/25/2024 Compr ehens elida metab olic 2000 panel - Serum or Plasm a albumin [mass/volume ] in serum or plasma 3.7 g/dL low: 3.5g/d Lhigh: 5g/dL ALBUM IN 3.7 3.5 - 5.0 g/dL 07/25 12:33 AM [facility] [employer] [facility] Not Available Not Available 07/25/2024 12:22:10 07/25/19 25 07/25/2024 Compr ehens elida metab olic 2000 panel - Serum or Plasm a albumin/glob ulin [mass ratio] in serum or plasma 1.3 low: 1high: 2.2 A/G RATIO 1.3 1.0 - 2.2 07/25 12:33 AM [facility] [employer] [facility] Not Available Not Available 07/25/2024 12:22:10 07/25/19 25 07/25/2024 Compr ehens elida metab olic 2000 panel - Serum or Plasm a calcium [mass/volume ] in serum or plasma 9 mg/dL low: 8.7mg/ dLhigh : 10.5mg /dL CALCI UM 9.0 8.7 - 10.5 mg/dL 07/25 12:33 AM [facility] [employer] [facility] Not Available Not Available 07/25/2024 12:22:10 07/25/19 25 07/25/2024 Compr ehens elida metab olic 2000 panel - Serum or Plasm a bilirubin.to bridgette [mass/volume ] in serum or plasma 0.4 mg/dL low: 0.2mg/ dLhigh : 1.2mg/ dL T BILI 0.4 0.2 - 1.2 mg/dL 07/25 12:33 AM [facility] [email or web address] How To [facility] R LAB Not Available Not Available 07/25/2024 12:22:10 07/25/19 25 07/25/2024 Compr Connequity elida trivago olic 1999 panel - Serum or Plasm a aspartate aminotransfe rase [enzymatic activity/vol ume] in serum or plasma 34 U/L high: 43U/L SGOT (AST) 34 <43 U/L 07/25 12:33 AM [facility] [email or web address] H CENTE R LAB Not Available Not Available 07/25/2024 12:22:10 07/25/19 25 07/25/2024 Compr Connequity elida trivago olic 2000 panel - Serum or Plasm a alanine aminotransfe rase [enzymatic activity/vol ume] in serum or plasma 44 U/L high: 56U/L SGPT (ALT) 44 <56 U/L 07/25 12:33 AM [facility] [email or web address] H CENTE R LAB Not Available Not Available 07/25/2024 12:22:10 07/25/19 25 07/25/2024 Compr Connequity elida trivago olic 2000 panel - Serum or Plasm a alkaline phosphatase [enzymatic activity/vol ume] in serum or plasma 85 U/L low: 40U/Lh igh: 150U/L ALKAL INE PHOSP HATAS E 85 40 - 150 U/L 07/25 12:33 AM [facility] [email or web address] H CENTE R LAB Not Available Not Available 07/25/2024 12:22:10 07/25/19 25 07/25/2024 Compr [employer] [place] olic 2000 panel - Serum or Plasm a glomerular filtration rate/1.73 sq M.predicted among non-blacks [volume rate/area] in serum, plasma or blood by creatinine-b ased formula (MDRD) low: 60 GFR, ESTIM ATED >60 >=60 07/25 12:33 AM [facility] Not Available Not Available 07/25/2024 12:22:10 07/25/19 25 07/25/2024 Compr ehens [place] metab olic 2000 panel - Serum or Plasm a glomerular filtration rate/1.73 sq M.predicted among blacks [volume rate/area] in serum, plasma or blood by creatinine-b ased formula (MDRD) low: 60 GFR, EST. AFRIC AN >60 >=60 07/25 12:33 AM [employer] [facility] CENTE R LAB Not Available Not Available 07/25/2024 12:22:10 07/25/19 25 07/25/2024 Compr ehens [place] metab olic 2000 panel - Serum or Plasm a glomerular filtration rate/1.73 sq M.predicted among non-blacks [volume rate/area] in serum, plasma or blood by creatinine-b ased formula (MDRD) low: 60 GFR, EST. NONAF RICAN >60 >=60 07/25 12:33 AM [employer] [facility] CENTE R LAB Not Available Not Available 07/25/2024 12:22:10 07/25/19 25 07/25/2024 Compr ehens [place]ida metab olic 2000 panel - Serum or Plasm a interpretati on and review of laboratory results Abnorm al Not Available Not Available 12:22:10 07/25/19 25 07/25/2024 C react elida prote in [Mass /volu me] in Serum or Plasm a C reactive protein [mass/volume ] in serum or plasma 0.47 mg/dL high: 0.5mg/ dL C-ODILIA CTIVE PROTE IN 0.47 <0.50 mg/dL 07/25 12:33 AM [facility] Not Available Not Available 07/25/2024 12:22:10 07/25/19 25 07/25/2024 C react elida prote in [Mass /volu me] in Serum or Plasm a interpretati on and review of laboratory results Normal Not Available Not Available 06/30 12:22:10 06/14/19 25 06/14/2024 trans -thor acic echoc ardio gram (TTE) (PROC ) No observ ation record ed. [email or web address] [facility] [address], [place], [address], 06/15/2024 03:15:28 Result Notes None recorded. Problems Name Problem SNOMED Code Status Onset Date Resolution Date Notes Provider Name and Address Organization Details Recorded Time Dyspnea 807500723 Active 2018 Not Available [facility] 3 00:18:53 Type 2 diabetes mellitus 74723304 Active 2023 Zully Conteh MD Attn: Accounting ,[address] [facility], [place], [address] , [place] [facility] 4 17:16:38 Allergic rhinitis 55926331 Active 2023 Zully Conteh MD Attn: Accounting ,[address] [facility], [place], [address] , [place] - [facility] 4 21:13:52 Gastroesophag eal reflux disease 019637902 Active 2023 Zully Conteh MD Attn: Accounting ,[address] [facility], [place], [address] , [place] [facility] 4 02:46:20 Screening for malignant neoplasm of prostate Active 2024 Zully Conteh MD Attn: Accounting ,[address] [facility], [place], [address] , [place] - [facility] 5 17:16:48 Carpal tunnel syndrome 59375231 Active Not Available [facility] 3 00:18:53 Pain in elbow 38517722 Active Not Available [facility] 3 00:18:53 Knee pain Active Not Available [facility] 3 00:18:53 Chronic low back pain 696446909 Active Not Available [facility] 3 00:18:53 Hip joint painful on movement 520954225 Active Not Available [facility] 3 00:18:53 Plantar fasciitis 774001885 Active Not Available [facility] 3 00:18:53 Problem Notes None recorded. Procedures Surgical History Date Name Laterality Status Provider Name and Address Organization Details Recorded Time Anesth surgery of femur completed Db Ratliff [place] - [facility] 11/04/2014 11:48:30 Imaging Results Imaging Date Name Status LastModified by Organization Details LastModified Time 06/14/2024 trans-thoracic echocardiogram (TTE) (PROC) completed [email or web address] [facility] [address], [place], [address], 06/15/2024 03:15:28 Procedure Notes None recorded. Medical Equipment None Reported. Allergies Allergen ID Allergen Name Allergen Category Reaction Reaction Severity Criticality Documentation Date Start Date Code Code System Note Provider Name and Address Organization Details Recorded Time 16964 Product containin g penicilli n (product) medicatio n Not available Not available Not available 11/04/2014 [id number] [id number] SNOMED Not Available Not Available Not Available Medications Name Sig Start Date Stop Date Status Note LastModified by Organization Details LastModified Time Prescriptio n - New 12/05 completed Not Available Not Available Not Available cyclobenzap rine 10 mg tablet TAKE 1 TABLET BY MOUTH 3 TIMES DAILY NEEDED FOR MUSCLE SPASMS FOR UP TO 7 DAYS. 12/05 completed Not Available Not Available Not Available Anti-Diarrh eal (loperamide ) 2 mg tablet 05/14 completed Not Available Not Available Not Available carvedilol 6.25 mg tablet 12/05 completed Not Available Not Available Not Available prednisone 10 mg tablet 03/11 completed Not Available Not Available Not Available gabapentin 600 mg tablet Take 1 tablet 3 times a day by oral route for 30 days. 11/21 completed Not Available Not Available Not Available carvedilol 12.5 mg tablet TAKE 1 TABLET BY MOUTH TWICE DAILY active Not Available Not Available No t Available Depo-Medrol 40 mg/mL suspension for injection Take 40 mg every day by injection route as needed for 1 day. 12/05 completed Not Available Not Available Not Available clindamycin HCl 300 mg capsule TAKE 1 CAPSULE BY MOUTH EVERY 8 HOURS FOR 10 DAY FOR INFECTION OF THE SKIN AND/OR SOFT TISSUE 05/01 completed Not Available Not Available Not Available cetirizine 10 mg tablet TAKE 1 TABLET BY MOUTH EVERY DAY active Not Available Not Available No t Available azithromyci n 250 mg tablet TAKE 2 TABLETS BY MOUTH TODAY, THEN TAKE 1 TABLET DAILY FOR 4 DAYS DIRECTED 08/05 completed Not Available Not Available Not Available benzonatate 200 mg capsule TAKE 1 CAPSULE BY MOUTH THREE TIMES DAILY 12/05 completed Not Available Not Available Not Available meloxicam 15 mg tablet TAKE 1 TABLET BY MOUTH EVERY DAY 12/05 completed Not Available Not Available Not Available Remeron 15 mg tablet Take 1 tablet every day by oral route. 01/26 completed Not Available Not Available Not Available ondansetron HCl 4 mg tablet TAKE 1 TABLET BY MOUTH EVERY 8 HOURS 12/05 completed Not Available Not Available Not Available prednisone 20 mg tablet TAKE 2 TABLETS BY MOUTH EVERY DAY FOR 5 DAYS 03/07 completed Not Available Not Available Not Available clonazepam 0.5 mg tablet 08/23 completed Not Available Not Available Not Available permethrin 5 % topical cream 12/05 completed Not Available Not Available Not Available Nexium 40 mg capsule,del ayed release Take 1 capsule every day by oral route before meals. 08/05 completed Not Available Not Available Not Available metronidazo le 500 mg tablet 05/14 completed Not Available Not Available Not Available ciprofloxac in 500 mg tablet Take 1 tablet every 12 hours by oral route after meals for 7 days. 01/26 completed Not Available Not Available Not Available omeprazole 40 mg capsule,del ayed release 05/14 completed Not Available Not Available Not Available tramadol 50 mg tablet 12/05 completed Not Available Not Available Not Available quetiapine 100 mg tablet 12/28 completed Not Available Not Available Not Available triamcinolo ne acetonide 0.1 % topical cream 12/05 completed Not Available Not Available Not Available spironolact one 25 mg tablet TAKE 1/2 TABLET BY MOUTH EVERY DAY active Not Available Not Available No t Available simvastatin 40 mg tablet TAKE 1 TABLET BY MOUTH EVERY NIGHT AT BEDTIME active Not Available Not Available No t Available carvedilol 3.125 mg tablet 12/05 completed Not Available Not Available Not Available lamotrigine 25 mg tablet 10/10 completed Not Available Not Available Not Available ketorolac 10 mg tablet TAKE 1 TABLET BY MOUTH EVERY 6 HOURS NEEDED FOR 5 DAYS 12/05 completed Not Available Not Available Not Available pantoprazol e 20 mg tablet,isma yed release TAKE 1 TABLET BY MOUTH EVERY DAY 12/05 completed Not Available Not Available Not Available methylpredn isolone acetate 80 mg/mL suspension for injection Take 40 mg as needed by injection route as directed for 1 day. 08/23 completed Not Available Not Available Not Available ofloxacin 0.3 % ear drops INSTILL 5 DROPS INTO THE LEFT EAR TWICE DAILY FOR 7 DAYS 12/05 completed Not Available Not Available Not Available citalopram 20 mg tablet 10/10 completed Not Available Not Available Not Available famotidine 20 mg tablet active Not Available Not Available Not Available SanteVetTo[employer] Ultra Test strips USE 1 STRIP TO TEST BLOOD SUGAR DAILY. active Not Available Not Available No t Available baclofen 10 mg tablet TAKE ONE (1) TABLET BY MOUTH TWICE DAILY active Not Available Not Available No t Available cephalexin 500 mg capsule TAKE 1 CAPSULE BY MOUTH EVERY 12 HOURS active Not Available Not Available No t Available pantoprazol e 40 mg tablet,isma yed release 08/09 completed Not Available Not Available Not Available losartan 25 mg tablet 12/05 completed Not Available Not Available Not Available ibuprofen 400 mg tablet 08/09 completed Not Available Not Available Not Available gabapentin 300 mg capsule TAKE 1 CAPSULE BY MOUTH THREE TIMES DAILY DIRECTED 12/05 completed Not Available Not Available Not Available omeprazole 20 mg capsule,del ayed release TAKE 1 CAPSULE BY MOUTH EVERY DAY BEFORE MEALS active Not Available Not Available No t Available Banophen 25 mg capsule TAKE 1 CAPSULE BY MOUTH EVERY 6 HOURS NEEDED 12/05 completed Not Available Not Available Not Available montelukast 10 mg tablet Take 1 tablet every day by oral route around the clock. active Not Available Not Available No t Available hydroxyzine HCl 25 mg tablet 05/14 completed Not Available Not Available Not Available digoxin 125 mcg (0.125 mg) tablet TAKE 1 TABLET BY MOUTH ONCE A DAY active Not Available Not Available No t Available diclofenac sodium 50 mg tablet,isma yed release TAKE 1 TABLET BY MOUTH TWICE A DAY WITH FOOD 12/05 completed Not Available Not Available Not Available furosemide 20 mg tablet TAKE 1 TABLET BY MOUTH ONCE DAILY active Not Available Not Available No t Available metoprolol succinate ER 25 mg tablet,exte nded release 24 hr 08/06 completed Not Available Not Available Not Available ibuprofen 600 mg tablet Take 1 tablet twice a day by oral route after meals for 30 days. 07/20 completed Not Available Not Available Not Available levofloxaci n 500 mg tablet TAKE 1 TABLET BY MOUTH EVERY DAY active Not Available Not Available No t Available methylpredn isolone 4 mg tablets in a dose pack TAKE 6 TABLETS ON DAY 1 DIRECTED ON PACKAGE AND DECREASE BY 1 TAB EACH DAY FOR A TOTAL OF 6 DAYS 12/05 completed Not Available Not Available Not Available albuterol sulfate HFA 90 mcg/actuati on aerosol inhaler Inhale 2 puffs every 4 hours by inhalatio n route as needed for 30 days. 07/08 completed Not Available Not Available Not Available Pepcid AC 10 mg tablet Take 1 tablet twice a day by oral route around the clock for 30 days. 12/14 completed Not Available Not Available Not Available ondansetron 4 mg disintegrat ing tablet Take 2 tablets every 12 hours by oral route as directed for 2 days. 07/08 completed Not Available Not Available Not Available fluticasone propionate 50 mcg/actuati on nasal spray,suspe nsion SPRAY 2 SPRAYS BY INTRANASA L ROUTE EVERY DAY DIRECTED active Not Available Not Available No t Available metformin ER 500 mg tablet,exte nded release 24 hr TAKE 1 TABLET BY MOUTH TWICE A DAY WITH MEALS active Not Available Not Available No t Available lisinopril 2.5 mg tablet 12/05 completed Not Available Not Available Not Available Augmentin 500 mg-125 mg tablet Take 1 tablet every 12 hours by oral route with meals for 7 days. 07/08 completed Not Available Not Available Not Available lamotrigine 100 mg tablet 10/10 completed Not Available Not Available Not Available loratadine 10 mg tablet TAKE 1 TABLET BY MOUTH EVERY DAY DIRECTED 12/05 completed Not Available Not Available Not Available naproxen 500 mg tablet 12/05 completed Not Available Not Available Not Available calcium 500 mg (as carbonate)- vitamin D3 5 mcg (200 unit) tablet Take 2 tablets every day by oral route as directed for 30 days. 12/05 completed Not Available Not Available Not Available Prilosec 12/14 completed Not Available Not Available Not Available Symbicort 160 mcg-4.5 mcg/actuati on HFA aerosol inhaler Inhale 2 puffs twice a day by inhalatio n route for 30 days. 12/28 completed Not Available Not Available Not Available Prilosec 10 mg oral suspension, delayed release 07/08 completed Not Available Not Available Not Available loratadine 10 mg capsule active Not Available Not Available Not Available Aerochamber Plus Flow-Vu 07/08 completed Not Available Not Available Not Available Octavia Allergy 180 mg tablet Take 1 tablet every day by oral route as directed for 30 days. 10/10 completed Not Available Not Available Not Available lidocaine 4 % topical gel Apply 1 applicati on 4 times a day by topical route as needed for 30 days. 12/05 completed Not Available Not Available Not Available Jardiance 10 mg tablet TAKE 1 TABLET BY MOUTH ONCE DAILY active Not Available Not Available No t Available Entresto 24 mg-26 mg tablet TAKE 1 TABLET BY MOUTH TWICE A DAY active Not Available Not Available No t Available naloxone 4 mg/actuatio n nasal spray PLEASE SEE ATTACHED FOR DETAILED DIRECTION S 12/05 completed Not Available Not Available Not Available Qvar RediHaler 80 mcg/actuati on HFA breath activated aerosol Inhale 1 puff twice a day by inhalatio n route as directed for 30 days. 07/08 completed Not Available Not Available Not Available OneTouch Ultra2 Meter USE DIRECTED 12/05 completed Not Available Not Available Not Available OneTouch Delica Plus Lancet 33 gauge USE ONCE DAILY 12/05 completed Not Available Not Available Not Available Vitals Date Recorded Body height Body mass index (BMI) Body weight Oxygen saturation Oxygen saturation in Arterial blood by Pulse oximetry Heart rate Systolic blood pressure Diastolic blood pressure Provider Name and Address Organization Details Last Updated DateTime 4 167.64 cm 26.6 kg/m2 66762.7 4 g 99 % 99 % 87 /min 126 mm[Hg] 86 mm[Hg] Germaine Bolanos [place] [facility] 4 17:01:50 Date Recorded Body height Body mass index (BMI) Body weight Heart rate Oxygen saturation Oxygen saturation in Arterial blood by Pulse oximetry Systolic blood pressure Diastolic blood pressure Provider Name and Address Organization Details Last Updated DateTime 4 167.64 cm 28.1 kg/m2 18683.0 7 g 81 /min 99 % 99 % 113 mm[Hg] 75 mm[Hg] Nik Guaman MA [facility] 4 17:20:21 Date Recorded Body height Body mass index (BMI) Body weight Body temperature Pain severity - 0-10 verbal numeric rating [Score] - Reported Heart rate Systolic blood pressure Diastolic blood pressure Provider Name and Address Organization Details Last Updated DateTime 4 167.64 cm 27.9 kg/m2 55325.4 8 g 97.7 [degF] 0 87 /min 121 mm[Hg] 76 mm[Hg] Paloma Liu MA [facility] 4 15:21:33 Date Recorded Body height Body mass index (BMI) Body weight Heart rate Body temperature Oxygen saturation Oxygen saturation in Arterial blood by Pulse oximetry Systolic blood pressure Diastolic blood pressure Provider Name and Address Organization Details Last Updated DateTime 5 167.64 cm 27.9 kg/m2 90948.4 8 g 101 /min 98.2 [degF] 98 % 98 % 123 mm[Hg] 81 mm[Hg] Noris Ortiz MA [facility] 5 16:47:11 Date Recorded Body height Body mass index (BMI) Body weight Body temperature Systolic blood pressure Diastolic blood pressure Provider Name and Address Organization Details Last Updated DateTime 5 167.64 cm 28.7 kg/m2 24122.4 4 g 97.3 [degF] 127 mm[Hg] 82 mm[Hg] Brooke benoit MA [facility] 5 16:28:54 Social History Question Answer Notes LastModified by Organizat ion Details LastModified Time Tobacco Smoking Status Former Smoker Noris Ortiz MA null, [facility] 02/24/2023 14:50:31 What Is Your Level Of Alcohol Consumption? None Information not available 06/14/2022 Are You Blind Or Do You Have Difficulty Seeing? Yes Wears Glasses Information not available 06/14/2022 What Is Your Level Of Caffeine Consumption? Moderate Information not available 06/14/2022 Are You Currently Employed? Yes Information not available 06/14/2022 Are You Deaf Or Do You Have Serious Difficulty Hearing? No Information not available 06/14/2022 What Type Of Diet Are You Following? REGULAR Low Sugar Information not available 06/14/2022 What Is The Highest Grade Or Level Of School You Have Completed Or The Highest Degree You Have Received? 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 No Information not available 02/24/2023 What Was The Date Of Your Most Recent Tobacco Screening? 08/12/2024 Information not available 08/12/2024 What Is Your Relationship Status? Single Information not available 06/14/2022 Do You Use Your Seat Belt Or Car Seat Routinely? Yes Information not available 06/14/2022 Do You Have Smoke And Carbon Monoxide Detectors In Your Home? Yes Information not available 06/14/2022 At What Age Did You Start Smoking Tobacco? 19 Information not available 06/14/2022 How Much Tobacco Do You Smoke? 1 PPD 1 Pack Every 3 Days Information not available 06/14/2022 Do You Feel Stressed (tense, Restless, Nervous, Or Anxious, Or Unable To Sleep At Night)? [id number] Information not available 06/14/2022 Do You Use Any Illicit Or Recreational Drugs? No Information not available 06/14/2022 Do You Use Sunscreen Routinely? No Information not available 02/24/2023 Has Tobacco Cessation Counseling Been Provided? Yes Information not available 06/14/2022 On What Date Was Tobacco Cessation Counseling Provided? 08/12/2024 Information not available 08/12/2024 Do You Or Have You Ever Used Any Other Forms Of Tobacco Or Nicotine? No Information not available 06/14/2022 Sex: Male Functional Status Question Answer Note LastModified by Organization D etails LastModified Time Are you able to care for yourself? Yes Information n ot available 06/14/2022 What is your exercise level? None Information not available 06/14/2022 Mental Status None recorded. Family History Relationship Description Onset Age of this Age Resolved Age Notes LastModified by Organization Details LastModified Time Mother Migraine [email or web address] Not availab le 11/04/2014 11:49:39 Mother Osteoporosis [email or web address] Not james ilable 11/04/2014 11:49:39 Father Diabetes mellitus [email or web address] Not available 11/04 11:49:39 Father Heart disease [email or web address] Not available 11/04 11:49:39 Medical History Condition Response Depression Y Anxiety Disorder Y Muscle, Joint, or Bone Problems Y Acid Reflux (GERD) Y Headaches Y High Cholesterol Y Liver Disease Y Immunizations Vaccine Type Date Status Note Provider Nam e and Address Organization Details Recorded Time Tdap 06/14/2022 completed Melquiades Hauser MD Attn: Accounting[address] [place], [address], [facility] 06/14/2022 11:41:10 Past Encounters Encounter ID Performer Location Encounter Start Date Encounter Closed Date Diagnosis/Indication Diagnosis SNOMED-CT Code Diagnosis ICD10 Code Diagnosis Note [id number] Gloria Whitney (Adult Med) [address] [place] [address] [id number] 0 11/04/2014 11:25:54 11/04/2014 14:33:09 Acid reflux 390586489 Carpal jhony balaji syndrome 47458854 Pain in elbow 41233711 Knee pain 61215307 Chronic low back pain 680342515 [id number] [employer] is Chelo (Adult Med) [address] [place] [address] [id number] 0 12/24/2015 12:10:00 12/24/2015 18:04:12 Acid reflux 669258177 K21.9 Pain in elbow 43378165 M 25.521 Hip joint painful on movement 470723295 M25.559 Plantar fasciitis 918666 003 M72.2 [id number] Melquiades Hauser MD [facility] (Adult Med) [address] [place] [address] [id number] 0 08/09/2017 15:03:33 08/09/2017 15:56:54 Chronic low back pain 145685383 M54.5 F/U in one month. Chronic post-traumatic headache 906292717 G44.837 [id number] Melquiades Hauser [facility] (Adult [facility]) [address] [place] [address] [id number] 0 12/14/2017 16:43:06 12/18/2017 10:52:10 Chronic low back pain 945545892 M54.5 F/U in one month. By the way he wants ibuprofen 600 mg. Cellulitis of lower limb 636180765 L03.119 Mixed anxi ety and depressive disorder 581409939 F41.8 Goes to chest nut. Pain in right knee 68400 22257 23787 M25.561 Had operation before. [id number] MD Chelo Linn (Adult Med) [address] [place] [address] [id number] 01/26/2018 12:19:57 01/26/2018 14:13:08 Chronic low back pain 706430159 M54.5 F/U in one month. By the way he wants ibuprofen 600 mg. Acid reflux 692726424 K2 1.9 OTC such as ranitidine nor working. Optional H. Pylori breath test later. Chronic re current sinusitis 483740992 J32.9 Flonase not working. Pain in right knee 17138 22484 49639 M25.561 Had operation before. Bilateral carpal tunnel syndrome 7434043637 8943617 G56.03 His previous NCT . [id number] MD Chelo Linn (Adult Med) [address] [place] [address] [id number] 0 02/23/2018 12:35:51 02/23/2018 13:46:12 Pain of left shoulder joint 9987247788 6382048 M25.512 On ibuprofen but not heling. He declines for orthopedic referral. Pain of le ft hip joint 4857654615 85297 M25.401 [id number] MD Chelo Linn (Adult Med) [address] [place] [address] [id number] 05/14/2018 15:40:50 05/14/2018 17:42:33 Carpal tunnel syndrome 23213990 G56.03 His NCT has been denied by insurance. He is informed. NCT was denied, he want MRI of hands, will order as he requests. Pain of le ft shoulder joint 5879654556 5931748 M25.512 On ibuprofen but not heling. He declines for orthopedic referral.R esolved. Pain of le ft hip joint 4348391485 37665 M25.552 Chronic low back pain 27 7278617 M54.5 F/U in one month. By the way he wants ibuprofen 600 mg., but change his mond , wants short course steroid. He has been warned about possible side effect of steroid , he understood and agreed to proceed the prescripti on. Acid reflux 083897757 K2 1.9 OTC such as ranitidine nor working. Optional H. Pylori breath test later. Chronic re current sinusitis 705204443 J32.9 Flonase not working. Bilateral carpal tunnel syndrome 6186618236 7985400 G56.03 His previous NCT .[place] T was denied by his insurance. Lateral epicondylitis 20 2123343 M77.11 [id number] [facility] [address] [place] [address] [id number] 0 07/20/2018 11:15:22 07/23/2018 09:47:17 Hip joint painful on movement 088109949 M25.559 Both hips. Will again refer to orthopedic . Carpal jhony balaji syndrome of right wrist 8559468446 16878 G56.01 Acute urticaria 00044247 9 L50.9 He wants steroid shot instead od pills. [id number] JESSICA Doe (Adult Med) [address] [place] [address] [id number] 0 08/23/2018 13:59:47 08/23/2018 14:43:32 Chronic low back pain 397191420 M54.5 Chronic re current sinusitis 536480561 J32.9 Acid reflux 192846967 K2 1.9 Dyspnea 061113233 R06.00 [id number] Melquiades Hauser MD [facility] (Adult Med) [address] [place] [address] [id number] 10/10/2018 16:17:27 10/10/2018 17:47:31 Chronic low back pain 792005219 M54.5 F/U in one month. By the way he wants ibuprofen 600 mg., but change his mond , wants short course steroid. He has been warned about possible side effect of steroid , he understood and agreed to proceed the prescripti on. Had right hand carpal tunnel syndrome once, but not able to reschedule the subsequent ial session. Injury of hand 921881558 S69.92XA Discussed with patient , he said he has to go back to work tomorrow. Acid reflux 156353227 K2 1.9 OTC such as ranitidine not working. Optional H. Pylori breath test later. Chronic ob structive pulmonary disease 41443643 J44.9 Nicotine dependence 5629 4008 F17.782 [id number] Melquiades Hauser MD [facility] (Adult Med) [address] [place] [address] [id number] 11/21/2018 12:44:29 11/21/2018 13:32:20 Dyslipidemia 840030925 E78.5 Low saturated fat diet. Wanting cholestero l check. Nicotine dependence 5629 4008 F17.200 Chronic ob structive pulmonary disease 37895679 J44.9 Seasonal allergy 3114095 04 J30.2 Discussed with patient. Pain in right hand 55419 39027 17991 M79.368 [id number] [facility] [address] [place] [address] [id number] 0 12/28/2018 17:06:31 12/31/2018 10:16:53 Nonischemic congestive cardiomyopathy 5059298896 [address] will do stress test, On examina tion - edema of legs 486238156 R60.0 Due to his cardiac condition. Nausea 659387930 R11.0 ? Acid reflux 657953233 K2 1.9 OTC such as ranitidine not working. Optional H. Pylori breath test later. History of drug abuse 37 0235789 F19.21 Is going to rehabilita tion program. [id number] MD Chelo Linn (Adult Med) [address] [place] [address] [phone] 03/11/2019 15:02:00 03/12/2019 13:52:39 Pain in right thumb 4346592416 880893 M79.644 Discussed with patient , agreed with xray and orthopedic referral. Chronic low back pain 27 8282982 M54.5 F/U in one month. By the way he wants ibuprofen 600 mg., but change his mond , wants short course steroid. He has been warned about possible side effect of steroid , he understood and agreed to proceed the prescripti on. Had right hand carpal tunnel syndrome once, but not able to reschedule the subsequent ial session. [id number] MD Chelo Linn (Adult Med) [address] [place] [address] [phone] 0 04/23/2019 17:38:29 04/24/2019 10:51:29 Pain in finger of right hand [id number] 25984 M79.644 Discussed with patient. Acid reflux 491054662 K2 1.9 OTC such as ranitidine not working. Optional H. Pylori breath test later. [id number] MD Chelo Linn (Adult Med) [address] [place] [address] [phone] 0 05/14/2019 12:33:25 05/14/2019 13:35:48 Pain of left hip joint [id number] 96800 M25.552 Discussed with patient. Acid reflux 804485578 K2 1.9 OTC such as ranitidine not working. Optional H. Pylori breath test later. [id number] MD Chelo Linn (Adult Med) [address] [place] [address] [phone] 0 07/08/2019 16:57:46 07/09/2019 09:38:08 Carpal tunnel syndrome of right wrist [id number] 44970 G56.01 Discussed with patient. He missed the appointmen t at [facility], will refer again. Bipolar disorder 5127276 4 F31.9 Wanting to be referred to behavior health clinic. 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 [id number] MD Chelo Linn (Adult Med) [address] [place] [address] [phone] 11/14/2019 08:13:56 11/15/2019 15:16:52 Pain of bilateral hands 7071489896 4327943 M79.641 Right hands pain. Discussed with patient. agreed for the orthopedic referral. [id number] MD Chelo Linn (Adult Med) [address] [place] [address] [phone] 0 12/03/2019 10:25:15 12/04/2019 13:13:38 Acid reflux 041634142 K21.9 OTC such as ranitidine not working. Optional H. Pylori breath test later. Carpal jhony balaji syndrome 75800347 G56.03 His NCT has been denied by insurance. He is informed. Chronic low back pain 27 7066804 M54.5 F/U in one month. By the way he wants ibuprofen 600 mg., but change his mond , wants short course steroid. He has been warned about possible side effect of steroid , he understood and agreed to proceed the prescripti on. Had right hand carpal tunnel syndrome once, but not able to reschedule the subsequent ial session. Hip joint painful on movement 671001779 M25.559 Both hips. Will again refer to orthopedic . [id number] MD Chelo Linn (Adult Med) [address] [place] [address] [phone] 0 06/14/2022 10:04:26 06/16/2022 10:28:12 Administration of diphtheria, pertussis, and tetanus vaccine 870828391 Z23 he tolerated shot well Arthritis of hand 405132 005 M13.849 X ray, orthopedic referral. he agreed, Pain of ri ght knee joint 1246880549 09079 M25.561 X ray , referral, and refill baclofen. [id number] MD Chelo Linn (Adult Med) [address] [place] [address] [phone] 0 10/12/2022 16:30:18 10/14/2022 14:45:39 Type 2 diabetes mellitus 79074908 E11.65 Diabetic diet, exercise and keep the weight down. Blood sugar is 95 mg%. Pain of ri ght knee joint 4110728525 56026 M25.561 X ray , referral, and refill baclofen. Overweight 271484789 E66 .3 Diet, exercise and keep the weight down. Screening for malignant neoplasm of colon 304940484 Z12.11 He agreed for the [facility] for screening. HIV screen ing declined 5937894035 98262 Z53.20 He declined. 10-12-22,. [id number] Melquiades Hauser MD [facility] (Adult Med) [address] [place] [address] [phone] 0 01/09/2023 11:22:30 01/10/2023 14:24:54 Contact dermatitis caused by urushiol from [facility] maggie 602313944 L25.5 Will give he steroid injection followed by oral steroid . Carpal jhony balaji syndrome of right wrist 2702707117 80980 G56.01 Discussed with patient. He missed the appointmen t at [facility], will refer again. HIV screen ing declined 3954012765 15733 Z53.20 He declined. 10-12-22,. [id number] Melquiades Hauser MD [facility] (Adult Med) [address] [place] [address] [phone] 0 02/24/2023 14:35:49 02/27/2023 16:54:37 Pain in right thumb 9604992304 927468 M79.644 Discussed with patient , agreed with xray and orthopedic referral. Bilateral carpal tunnel syndrome 7600074003 4193723 G56.03 His previous NCT .RI T was denied by his insurance. Will issued again today. [id number] [facility] [address] [place] [address] [phone] 0 05/16/2023 16:48:00 05/17/2023 15:43:06 Allergic rhinitis 94947278 J30.9 Will try med as ordered. Pain in right hand 51358 90716 42768 M79.641 He agreed for the topical gel to try. HIV screen ing declined 5749422194 52029 Z53.20 He declined. 10-12-22,. He declined today 05-16-23. [id number] MD Chelo Rowell (Adult Med) [address] [place] [address] [phone] 12/06/2023 16:03:07 12/07/2023 16:12:12 Arthritis of hand 713699699 M13.849 Allergic rhinitis 547886 04 J30.9 Type 2 elvi betes mellitus 21115558 E11.9 Acid reflux 308601075 K2 1.9 [id number] MD Chelo Rowell (Adult Med) [address] [place] [address] [phone] 0 03/07/2024 17:03:05 03/12/2024 08:42:15 Overweight 948235869 E66.3 [id number] Hector Mathias MD [facility] [address] [place] [address] [phone] 2 03/26/2024 14:58:57 03/27/2024 10:58:32 Acute sinusitis 43778481 J01.90 follow-up in 2 weeks Chronic rhinitis 5212808 6 J31.0 [id number] Zully Conteh MD [facility] (Adult Med) [address] [place] [address] [phone] 0 08/05/2024 16:37:28 08/06/2024 12:37:42 Gastroesophageal reflux disease 524453976 K21.9 Chronic low back pain 27 0106201 M54.50 Dyspnea 034569338 R06.00 Type 2 elvi betes mellitus 69798387 E11.9 Screening for malignant neoplasm of prostate 229915851 Z12.5 [id number] Hector Mathias MD [facility] [address] [place] [address] [phone] 2 08/12/2024 16:20:02 08/12/2024 16:40:30 Chronic rhinitis 11598814 J31.0 continue saline follow back in 3 weeks Health Concerns Section Related Observation LastModified by Organization Detai ls LastModified Time None Recorded Concern Status LastModified by Organization Details LastModified Time None Recorded Advance Directives Directive None Recorded Payers Encounter Date Sequence Insurance Name Policy Number Policy Sandy Covered Member ID Sandy Member ID Guarantor Name 12/06/2023 1 [employer] [place] AFTER 2020 (MEDICAID REPLACEMENT - HMO) Taye Perigo [id number] Taye Perigo 03/07/2024 1 [employer] [place]AC[place] - [place]MO) Taye Perigo [id number] Taye Perigo 03/26/2024 1 [employer] [place] - [place]MO) Taye Perigo [id number] Taye Perigo 08/05/2024 1 [employer] [place] - [place]MO) Taye Perigo [id number] Taye Perigo 08/12/2024 1 [employer] [place] - [place]MO) Taye Perigo [id number] Taye Perigo Notes Date Note Type Note Provider Name and Address Organization Details Recorded Time 12/06/2023 text/html Here to change PCP. Needs meds updated. Heartburn is not controlled by famotidine in the past month Zully Conteh MD Attn: Accounting,[address] [facility], [place], [address], [facility] 12/06/2023 17:38:12 03/07/2024 text/html Here for DM f/u. Has seen orthopedist for right hand. Is not sleeping well for two months. His anxiety level is higher. Will be seeing soon. Needs to have labs drawn Zully Conteh MD Attn: Accounting[address] [facility], [place], [address], [facility] 03/07/2024 17:31:37 03/26/2024 text/html patient complaining of nasal congestion and drainage. He says that he has had drainage for several months. He uses Flonase without much relief. Not taking any other medicines. He also complains of blockage of his left ear. Hector Mathias MD [address], [place], [address], [facility] 03/26/2024 15:31:06 08/05/2024 text/html Here for pain in right foot. Has noticed swelling in legs from upper calf to ankle. He needs refills on Zully Conteh MD Attn: Accounting[address] [place], [address], [facility] 08/05/2024 17:18:02 08/12/2024 text/html Patient complaining of nasal congestion and drainage. he has crusty debris in his nose. He has been using saline. He is taking antibiotics for his foot. Hetcor Mathias MD [address], [place], [address], [facility] 08/12/2024 16:36:30
--- OUTSIDE RECORDS SUMMARY | 2024-09-01 11:05 | XMS_ITS | Clinical Summary ---
Author Organization [facility] Address [address] [place] [address] Phone Care Team Providers Care Water Restoration Technician Name Role Phone Zia Ordonez MD Primary [...] naloxone HCl (Narcan) 4 MG/0.1ML Liquid 1 [place] by Nasal route as needed for Opioid [...] Department Care Team Description 07/24/2024 10:21 PM SHEET METAL MECHANIC - 07/25/2024 1:39 AM SHEET METAL MECHANIC Emergency [facility] Emergency [address] [place] [address] Juan Ramirez MD Positive D-dimer Discharge Disposition: Discharged to home or Selfcare 07/24/2024 Travel 07/01/2024 12:30 PM SHEET METAL MECHANIC - 07/01/2024 11:59 PM SHEET METAL MECHANIC Hospital Encounter [facility] Cardiology Services [address] [place] [address] Elsa Jeong DPM Discharge Disposition: Discharged to home or Selfcare 07/01/2024 Travel 06/25/2024 Travel 06/24/2024 Travel 06/20/2024 Transcribe Orders [facility] Preop/Pacu II [address] [place] [address] Elsa Jeong DPM Pre-op testing (Primary Dx) 06/20/2024 Transcribe Orders [facility] Preop/Pacu II [address] [place] [address] Elsa Jeong DPM Pre-op testing (Primary Dx) 06/16/2024 4:26 PM SHEET METAL MECHANIC - 06/16/2024 6:07 PM SHEET METAL MECHANIC Emergency [facility] Emergency 1 [facility] [place] [address] Lydia Bullock MD Cellulitis of great toe [...] on file Legal Sex Male 6:35 PM SHEET METAL MECHANIC Gender Identity Not on file Sexual Orientation Not on file Last Filed Vital Signs Vital Sign Reading Time Taken Comments Blood Pressure 119/70 07/25/2024 1:32 AM SHEET METAL MECHANIC Pulse 79 07/25/2024 1:32 AM SHEET METAL MECHANIC Temperature 36.1 C (97 F) 07/24/2024 10:22 PM SHEET METAL MECHANIC Respiratory Rate 18 07/25/2024 1:32 AM SHEET METAL MECHANIC Oxygen Saturation 98% 07/25/2024 1:32 AM SHEET METAL MECHANIC Inhaled Oxygen Concentration - - Weight 78 kg (172 lb) 07/24/2024 10:22 PM SHEET METAL MECHANIC Height 167.6 cm (5' 6 ) 07/24/2024 10:22 PM SHEET METAL MECHANIC Body Mass Index 27.76 07/24/2024 10:22 PM SHEET METAL MECHANIC Plan of Treatment Health Maintenance Due Date [...] this topic Medical Devices Implanted Type Area Medical Collections Specialist Device Identifier Shelf Expiration Date Model / Serial / Lot [id number]-11/06/2020 Implanted:2020 (Quantity not on file) Procedures Procedure Name Priority Date/Time Associated Diagnosis Comments CBC WITH AUTO DIFFERENTIAL STAT 07/24/2024 11:19 PM SHEET METAL MECHANIC D-DIMER STAT 07/24/2024 11:19 PM SHEET METAL MECHANIC C-REACTIVE PROTEIN (CRP) QUANT STAT 07/24/2024 11:19 PM SHEET METAL MECHANIC ERYTHROCYTE SEDIMENTATION RATE (ESR) STAT 07/24/2024 11:19 PM SHEET METAL MECHANIC CMP (COMPREHENSIVE METABOLIC PANEL) STAT 07/24/2024 11:19 PM SHEET METAL MECHANIC COMPLETE BLOOD COUNT (CBC) WITH DIFF STAT 07/24/2024 11:19 PM SHEET METAL MECHANIC XR TIBIA & FIBULA RIGHT STAT 07/24/2024 11:17 PM SHEET METAL MECHANIC EKG 12 LEAD Routine 07/01/2024 12:36 PM SHEET METAL MECHANIC Pre-op testing BASIC METABOLIC PANEL W/ CALCIUM TOTAL Routine 06/25/2024 12:26 PM SHEET METAL MECHANIC Pre-op testing XR TOE(S) MIN 2V RT STAT 06/16/2024 5:08 PM SHEET METAL MECHANIC from Last 3 Months Results * CBC with Auto Differential (07/24/2024 11:19 PM [facility]) WBC 6.96 4.00 - 12.00 10(3)/mcL 07/25/2024 12:11 AM [facility] RBC 4.65 4.40 - 5.80 10(6)/mcL 07/25/2024 12:11 AM [facility] HEMOGLOBIN (HGB) 14.5 13.0 - 16.5 g/dL 07/25/2024 12:11 AM [facility] HEMATOCRIT (HCT) 42.0 38.0 - 50.0 % 07/25/2024 12:11 AM [facility] MCV 90.3 82.0 - 96.0 fL 07/25/2024 12:11 AM [facility] MCH 31.2 26.0 - 32.0 pg 07/25/2024 12:11 AM [facility] MCHC 34.5 31.0 - 36.0 g/dL 07/25/2024 12:11 AM [facility] PLATELET COUNT 186 140 - 440 10(3)/[facility] 07/25/2024 12:11 AM [facility] RDW 12.6 11.8 - 15.5 % 07/25/2024 12:11 AM [facility] MPV 8.5 8.0 - 12.6 fL 07/25/2024 12:11 AM [facility] NEUTROPHILS 60.7 40.0 - 68.0 % 07/25/2024 12:11 AM [facility] LYMPHOCYTES 28.7 19.0 - 49.0 % 07/25/2024 12:11 AM [facility] MONOCYTES 8.2 3.0 - 13.0 % 07/25/2024 12:11 AM [facility] EOSINOPHILS 2.0 0.0 - 8.0 % 07/25/2024 12:11 AM [facility] BASOPHILS 0.4 0.0 - 1.0 % 07/25/2024 12:11 AM SHEET METAL MECHANIC [facility] ABSOLUTE NEUTROPHILS 4.22 1.40 - 5.30 10(3)/[facility] 07/25/2024 12:11 AM SHEET METAL MECHANIC [facility] ABSOLUTE LYMPHOCYTES 2.00 0.90 - 3.30 10(3)/[facility] 07/25/2024 12:11 AM SHEET METAL MECHANIC [facility] ABSOLUTE MONOCYTES 0.57 0.10 - 0.90 10(3)/[facility] 07/25/2024 12:11 AM SHEET METAL MECHANIC [facility] ABSOLUTE EOSINOPHIL 0.14 0.00 - 0.50 10(3)/[facility] 07/25/2024 12:11 AM SHEET METAL MECHANIC [facility] ABSOLUTE BASOPHILS 0.03 0.00 - 0.10 10(3)/[facility] 07/25/2024 12:11 AM SHEET METAL MECHANIC [facility] NRBC PER 100 WBC 0 07/25/19 25 12:11 AM SHEET METAL MECHANIC [facility] Blood Venipuncture / Unknown 07/24/2024 11:19 PM SHEET METAL MECHANIC 07/25/2024 12:08 AM SHEET METAL MECHANIC Juan Ramirez MD HEMATOLOGY ORDERABLES Fin al Result [facility] [address] [place] [address] * (ABNORMAL) Sed Rate (Esr) [id number] (07/24/2024 11:19 PM SHEET METAL MECHANIC) ESR (SED RATE, ERYTHROCYTE SEDIMENTATION RATE) 23(H) <20 mm/h 07/25/2024 12:14 AM SHEET METAL MECHANIC [facility] Comment: Patients presenting with increased level of fibrinogen, gamma globulins, or abnormally shaped RBCs could affect the results for the erythrocyte sedimentation rate (ESR). Results should be clinically correlated. Blood Venipuncture / Unknown 07/24/2024 11:19 PM SHEET METAL MECHANIC 07/25/2024 12:08 AM SHEET METAL MECHANIC Juan Ramirez MD HEMATOLOGY ORDERABLES Fin al Result Performing Organization Address [facility] Co de Phone Number [facility] [address] [place] [address] * (ABNORMAL) D-Dimer (07/24/2024 11:19 PM SHEET METAL MECHANIC) [facility] D DIMER 0.80(H) <0.50 mcg/mL FEU 07/25/2024 12:25 AM SHEET METAL MECHANIC [facility] Blood Venipuncture / Unknown 07/24/2024 11:19 PM SHEET METAL MECHANIC 07/25/2024 12:08 AM SHEET METAL MECHANIC Narrative [facility] - 07/25/2024 12:25 AM SHEET METAL MECHANIC The FDA has approved this method to exclude the diagnosis of DVT and/or PE at the cutoff value of <0.50 mcg/mL FEU. Juan Ramirez MD HEMATOLOGY ORDERABLES Fin al Result Performing Organization Address [facility] de Phone Number [facility] [address] [place] [address] * (ABNORMAL) CMP (Comprehensive Metabolic Panel) (07/24/2024 11:19 PM SHEET METAL MECHANIC) [facility] SODIUM 142 136 - 145 mmol/L 07/25/2024 12:33 AM [facility] POTASSIUM 3.6 3.5 - 5.1 mmol/L 07/25/2024 12:33 AM [facility] CHLORIDE 111(H) 98 - 107 mmol/L 07/25/2024 12:33 AM [facility] CO2, VENOUS 20(L) 22 - 30 mmol/L 07/25/2024 12:33 AM [facility] ANION GAP 14.6 <18.0 mmol/L 07/25/2024 12:33 AM [facility] GLUCOSE 134(H) 70 - 99 mg/dL 07/25/2024 12:33 AM [facility] BUN 23 8 - 26 mg/dL 07/25/2024 12:33 AM [facility] CREATININE, BLOOD 1.07 0.70 - 1.30 mg/dL 07/25/2024 12:33 AM [facility] BUN/CREATININE RATIO 21(H) 12 - 20 ratio 07/25/2024 12:33 AM [facility] TOTAL PROTEIN 6.6 6.0 - 8.0 g/dL 07/25/2024 12:33 AM [facility] ALBUMIN 3.7 3.5 - 5.0 g/dL 07/25/2024 12:33 AM [facility] A/G RATIO 1.3 1.0 - 2.2 07/25/2024 12:33 AM [facility] CALCIUM 9.0 8.7 - 10.5 mg/dL 07/25/2024 12:33 AM [facility] T BILI 0.4 0.2 - 1.2 mg/dL 07/25/2024 12:33 AM [facility] SGOT (AST) 34 <43 U/L 07/25/2024 12:33 AM [facility] SGPT (ALT) 44 <56 U/L 07/25/2024 12:33 AM [facility] ALKALINE PHOSPHATASE 85 40 - 150 U/L 07/25/2024 12:33 AM [facility] GFR, ESTIMATED >60 >=60 07/25/2024 12:33 AM [facility] Comment: Creatinine Clearance is the preferred criteria for selecting drug dose adjustments in renally impaired patients. The GFR is provided as additional pertinent clinical information. GFR is reported in mL/min/1.73 sq m. Calculation based on the Chronic Kidney Disease Epidemiology Collaboration (CKD- EPI) equation refit without adjustment for race. GFR, EST. >60 >=60 025 12:33 AM [facility] GFR, EST. NONAFRICAN >60 >=60 07/25/2024 12:33 AM [facility] Blood Venipuncture / Unknown 07/24/2024 11:19 PM SHEET METAL MECHANIC 07/25/2024 12:08 AM SHEET METAL MECHANIC Juan Ramirez MD CHEMISTRY ORDERABLES Shira l Result Performing Organization Address City/[facility] Co de Phone Number [facility] [address] [place] [address] * C-Reactive Protein Qnt (Crp) (07/24/2024 11:19 PM SHEET METAL MECHANIC) C-REACTIVE PROTEIN 0.47 <0.50 mg/dL 07/25/2024 12:33 AM SHEET METAL MECHANIC [facility] Blood Venipuncture / Unknown 07/24/2024 11:19 PM SHEET METAL MECHANIC 07/25/2024 12:08 AM SHEET METAL MECHANIC Juan Ramirez MD CHEMISTRY ORDERABLES Shira l Result Performing Organization Address [facility] Co de Phone Number [facility] [address] [place] [address] * XR TIBIA & FIBULA RIGHT (07/24/2024 11:17 PM SHEET METAL MECHANIC) Anatomical Region Laterality Modality LOWER EXTREMITY, leg Right Digital Rad iography 07/24/2024 11:3 6 PM SHEET METAL MECHANIC Impressions 07/24/2024 11:38 PM SHEET METAL MECHANIC IMPRESSION: No acute osseous abnormality. Narrative 07/24/2024 11:38 PM SHEET METAL MECHANIC EXAM DESCRIPTION: XR TIBIA and FIBULA RIGHT [...] Ariella Hayward M.D. AT: AT Report ID: [id number] Reading Location: [id number] Procedure Note Ariella Hayward MD - 07/24/2024 [...] Ariella Hayward M.D. AT: AT Report ID: [id number] Reading Location: [id number] IMPRESSION: No acute osseous abnormality. Juan Ramirez MD IMG DIAGNOSTIC ORDERABLES Final Result * EKG 12 LEAD (07/01/2024 12:36 PM SHEET METAL MECHANIC) Ventricular Rate 84 BPM EXTERNAL EKG Atrial Rate 84 BPM EXTERNAL EKG P-R Interval 158 ms EXTERNAL EKG QRS Duration 158 ms EXTERNAL EKG Q-T Duration 416 ms EXTERNAL EKG QTC CALCULATION 491 ms EXTERNAL EKG P Avon 7 degrees EXTERNAL EKG R Avon -66 degrees EXTERNAL EKG T Avon 89 degrees EXTERNAL EKG 07/01/2024 12:3 6 PM SHEET METAL MECHANIC Impressions EXTERNAL EKG - 07/01/2024 4:10 PM SHEET METAL MECHANIC Atrial-sensed ventricular-paced rhythm Abnormal ECG When compared with ECG of 25-JUL-2023 15:27, Vent. rate has increased BY 15 BPM Confirmed by Mushtaq Zurita ([id number]) on 07/01/2024 4:10:11 PM Narrative Procedure Note Mushtaq Zurita MD - 07/01/2024 IMPRESSION: Atrial-sensed ventricular-paced rhythm Abnormal ECG When compared with ECG of 25-JUL-2023 15:27, Vent. rate has increased BY 15 BPM Confirmed by Mushtaq Zurita ([id number]) on 07/01/2024 4:10:11 PM us Elsa Jeong DPM IMG ECG ORDERABLES Final Res ult EXTERNAL EKG * (ABNORMAL) BASIC METABOLIC PANEL W/ CALCIUM TOTAL (06/25/2024 12:26 PM SHEET METAL MECHANIC) SODIUM 138 136 - 145 mmol/L 06/25/2024 1:47 PM SHEET METAL MECHANIC [facility] POTASSIUM 4.2 3.5 - 5.1 mmol/L 06/25/2024 1:47 PM [facility] CHLORIDE 106 98 - 107 mmol/L 06/25/2024 1:47 PM [facility] CO2, VENOUS 24 22 - 30 mmol/L 06/25/2024 1:47 PM [facility] ANION GAP 12.2 <18.0 mmol/L 06/25/2024 1:47 PM [facility] GLUCOSE 138(H) 70 - 99 mg/dL 06/25/2024 1:47 PM [facility] BUN 20 8 - 26 mg/dL 06/25/2024 1:47 PM [facility] CREATININE, BLOOD 1.08 0.70 - 1.30 mg/dL 06/25/2024 1:47 PM [facility] BUN/CREATININE RATIO 19 12 - 20 ratio 06/25/2024 1:47 PM [facility] CALCIUM 9.2 8.7 - 10.5 mg/dL 06/25/2024 1:47 PM [facility] IS THE PATIENT REQUIRED TO BE FASTING? No 06/25/2024 1:47 PM [facility] GFR, ESTIMATED >60 >=60 06/25/2024 1:47 PM [facility] Comment: Creatinine Clearance is the preferred criteria for selecting drug dose adjustments in renally impaired patients. The GFR is provided as additional pertinent clinical information. GFR is reported in mL/min/1.73 sq m. Calculation based on the Chronic Kidney Disease Epidemiology Collaboration (CKD- EPI) equation refit without adjustment for race. GFR, EST. >60 >=60 025 1:47 PM SHEET METAL MECHANIC [facility] GFR, EST. NONAFRICAN >60 >=60 06/25/2024 1:47 PM SHEET METAL MECHANIC [facility] Blood Venipuncture / Unknown 06/25/2024 12:26 PM SHEET METAL MECHANIC 06/25/2024 12:57 PM SHEET METAL MECHANIC us Elsa Jeong DPM CHEMISTRY ORDERABLES Final R esult [facility] [address] [place] [address] * XR TOE(S) MIN?? 2V RT (06/16/2024 5:08 PM SHEET METAL MECHANIC) Anatomical Region Laterality Modality LOWER EXTREMITY, Toes N/A Digital Ra diography 06/16/2024 5:48 PM SHEET METAL MECHANIC Impressions 06/16/2024 5:50 PM SHEET METAL MECHANIC Findings/impression: Mild degenerative changes are noted particularly of the great toe. Lesser degenerative changes are seen of the base of the 2nd toe. No clear evidence of acute fracture or dislocation is identified. Likely chronic defect of the proximal 5th metatarsal is incidentally noted. Soft tissues appear unremarkable. Narrative 06/16/2024 5:50 PM SHEET METAL MECHANIC EXAM DESCRIPTION: XR TOE(S) MIN 2V RT REASON FOR STUDY: toe pain TECHNIQUE: 4 radiographic view(s) of the left toes . COMPARISON: None THIS IS AN ELECTRONICALLY VERIFIED FINAL REPORT 06/16/2024 5:48 PM - Electronically signed by Joselito Rudolph M.D. KH: [email or web address] Report ID: [id number] Reading Location: [place] [address] Procedure Note Joselito Rudolph MD - 06/16/2024 EXAM DESCRIPTION: XR TOE(S) MIN 2V RT REASON FOR STUDY: toe pain TECHNIQUE: 4 radiographic view(s) of the left toes . COMPARISON: None THIS IS AN ELECTRONICALLY VERIFIED FINAL REPORT 06/16/2024 5:48 PM - Electronically signed by Joselito Rudolph M.D. KH: [email or web address] Report ID: [id number] Reading Location: [place] [address] Findings/impression: Mild degenerative changes are noted particularly [...] Months Insurance MEDICAID [employer] MEDICAID [facility] [employer] [facility] Advance Directives * Full Code (Latest Code Status on File) Date Activated Date Inactivated Comments 10/06/2022 7:37 PM 10/09/2022 2:45 PM CPR-Full Sivakumar atment: FULL ARREST: Attempt Resuscitation/CPR wit intubation and mechanical ventilation. PRE-ARREST: Use entire range of life support measures to stabilize the patient. Care Teams Water Restoration Technician Relationship Specialty Start Date End Date Zia Ordonez MD PCP - General Obstetrics & Gynecology 06/16/24
--- OUTSIDE RECORDS SUMMARY | 2024-09-01 11:05 | XMS_ITS | Patient Health Record ---
Author Organization [facility] Address [address] [place] [address] Care Team Providers Care Brush Washer Name Role Phone Karyn Jerica Primary Care Provider XL Video, [facility] Unavailable U ana rosa TrevorcelestinoSagar Unavailable [phone] Diamond Khan Unavailable Allergies Allergen (clinical drug ingredient) Drug/Non Drug Allergy documented on EMR Reaction Allergy Type Onset Date Status penicillin (uncoded) hives Allergy Active Results Component Value Reference Range Notes HIV Screen *HIV 1, 2 Ab, p24 Ag ([id number]) (Not yet reviewed by provider) Interpretation: Performing Lab:[facility] [address] [facility], Phone - [phone], Director - [facility] Notes/Report: HIV Ab/p24 Ag Screen Non Reactive Non Reactive HIV-1/HIV-2 antibodies and HIV-1 p24 antigen were NOT detected. There is no laboratory evidence of HIV infection. HIV Negative Phosphorus, Serum* (Not yet reviewed by provider) Interpretation: Performing Lab:[facility], [address] [facility], Phone - [phone], Director - [facility] Notes/Report: Phosphorus 2.7 2.8-4.1 mg/dL Magnesium, Serum* (Not yet r eviewed by provider) Interpretation: Performing Lab:[facility] [address] [facility], Phone - [phone], Director - [facility] Notes/Report: Magnesium 2.0 1.6-2.3 mg/dL CBC With Differential/Platel et* (Not yet reviewed by provider) Interpretation: Performing Lab[facility] [facility], Phone - [phone], Director - [facility] Notes/Report: WBC 6.0 3.4-10.8 x10E3/uL RBC [...] % Immature Grans (Abs) 0.0 0.0-0.1 x10E3/uL CMP 14 Comprehensive Metabol ic Panel* (Not yet reviewed by provider) Interpretation: Performing Lab:[facility], [address] [facility], Phone - [phone], [facility] Notes/Report: Glucose 148 70-99 mg/dL BUN 18 [...] 0-40 IU/L ALT (SGPT) 34 0-44 IU/L QuantiFERON-TB Gold Plus ([id number]) (Not yet reviewed by provider) Interpretation: Performing Lab:[facility], [address] [facility], Phone - [phone], Director - [facility] Notes/Report: QuantiFERON Incubation Incubation performed. 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 Stress is when someone feels tense, nervous, anxious, or can\t sleep at night because their mind is troubled Not at all In the past year have you sp ent more than 2 nights in a row in a custodial, assisted, intermediate center, or juvenile correctional facility? No Are [...] W/U Status Risk Notes Problem Mood disorder (68700092) Mood disorder (F39) Active confirmed Problem Overweight (657719335) Over weight (E66.3) Active confirmed Problem 818568058 Hypoglycemia (E16.2) Active confirmed Problem [id number] Obesity (BMI 30.0-34.9) (E66.9) Active confirmed Problem 672736496 Gastroesophageal reflux disease without esophagitis (K21.9) Active confirmed Problem 81880336 Seasonal allergi c rhinitis due to pollen (J30.1) Active confirmed Problem 399856229 Alcohol use disorder, severe, dependence (F10.20) Active confirmed Vital Signs Heart Rate 91 /min 08/28/2024 Temperature 98.0 degrees Fahrenheit 08/28/2024 Respiratory Rate 16 /min 08/28/2024 Blood pressure diastolic 72 mm Hg 08/28/2024 Oximetry 96 % 08/28/2024 Height 66 in 08/28/2024 Blood pressure systolic 110 mm Hg 08/28/2024 Weight 177.2 lbs 08/28/2024 BMI 28.6 kg/m2 08/28/2024 Encounters Encounter Location Date Provider Diagnosis [address] [address] 08/28/2024 Diamond Khan [address] [place] [address] 08/28/2024 Saagr Meneses Routine general medical examination at a health care facility Z00.00 ; Tuberculosis screening Z11.1 and Over weight E66.[address] [place] [address] 05/07/2024 Diamond Khan Assessments Encounter Date Diagnosis (ICD Code) Assessment Notes Treatment Notes Treatment Clinical Notes Section Notes 08/28/2024 Routine general medical examination at a health care facility (ICD-10 - Z00.00) Stable for admission. Continue CRU protocol. Encouraged regular f/u with PCP for recommended screenings and physicals. 08/28/2024 Tuberculosis screening (ICD-10 - Z11.1) 08/28/2024 Over weight (ICD-10 - E66.3) 08/28/2024 [...] Screen *HIV 1, 2 Ab, p24 Ag ([id number]) 08/28/2024 Phosphorus, Serum* 08/28/2024 Magnesium, Serum* 08/28/2024 CBC With Differential/Platelet* 08/29/19 25 CMP 14 Comprehensive Metabolic Panel* QuantiFERON-TB Gold Plus ([id number]) 2024 Next Appt Details Provider Name:Radha cowan, 09/03/2024 09:00:00 AM, [address] [place] [address], [phone], Insurance Providers Payer Name Payer Address Payer Phone Subscriber Number Group Number Insured Name Patient Relationship to Insured Coverage Start Date Coverage End Date [address] [phone] [id number] Taye Whitaker Self - patient is the insured 8 Medications Administered Medication Instructions Date of Administration Dosage Notes Ketorolac 03/02/2018 30 mg Equipment Detailer: Hospira Pt tolerated the injection well. Denies questions or concerns. Medical (General) History Medical History History ICD Code bilateral carpel tunnel seasonal allergies depression Surgical History Surgery Date(Month/Year) femur bone have a plate right 1983 Hospitalization History Reason Date(Month/Year)
--- OUTSIDE RECORDS SUMMARY | 2024-09-01 11:05 | XMS_ITS ---
Author Organization [facility] Address [address] [place] [address] Care Team Providers Care Tip Length Checker Name Role Phone Jerica Boss Primary Care Provider 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 Stress is when someone feels tense, nervous, anxious, or can\t sleep at night because their mind is troubled Not at all In the past year have you sp ent more than 2 nights in a row in a fdc, assisted, long-term center, or juvenile correctional facility? No [...] Nonsmoker Encounters Encounter Location Date Provider Diagnosis [address] [address] 08/28/2024 Diamond Khan Assessments Encounter Date Diagnosis [...] Name:Radha cowan, 09/03/2024 09:00:00 AM, [address] [place] [address], [id number], Progress Notes * Taye WHITAKERDOB: [birth year] (54 yo M)Acc No.[id number]:08/28/2024 UNLOCKED PROGRESS NOTE Patient: Taye DILLARD Provider: Cedrick Khan :1970 A ge:54 Y S ex:Male Date:08/28/2024 Address:[address] [place] [address] Pcp:Jerica Boss Subjective: * Chief Complaints: * 1 . Detox aTBC. * HPI: S creening: [place] Suicide Severity Rating Scale (LF) D o [...] psych providers, Currently doing [facility] groups in [place] through [facility]. ubstance Use: Current Use Patterns m ethaphetamine [...] ongest period of Sobriety was two years, 5712-5267. S ubstance of Choice x . H [...] Have A Primary Care Provider? Y es [facility], D ate of last physical exam 0 -2024. D o You Have A Psychiatric Provider? D o You Have A Psychiatric Provider? N o est psych with [facility]. D o You Have Any Other Professional Supports? D o You Have Any Other Professional Supports Y es. C onsent Forms Completed C onsent Forms C onsent To Treat, Health Care Providers, Emergency Contact, Probation/[place]. 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 Stress is when someone feels tense, nervous, anxious, or can\t sleep at night because their mind is troubled N ot at all, I n the past year have you spent more than 2 nights in a row in a fdc, assisted, long-term center, or juvenile correctional facility? N [...] your partner or ex-partner? N o, P ANDERSON Score: 6 . T obacco Use: D [...] CHS08 aT Service, CHS11 Insurance Application Assistance, [facility]12 Housing Assistance, [facility]13 Referring to Escalation Engineer * * Electronic signature of Barrera Khan on 09/01/2024 at 11:05 AM CDT Sign off status: Pending * Provider: Cedrick Khan Date: 0 08/28/2024 Generated for Flo germain/Angelica/Dari on: 0 09/01/2024 11:05 AM CDT History and Physical Notes * [...] of Psychiatric Hospitalizations two times over all, Yas: 2016 first, 2019 History of Psychiatric and B ehavioral Health Treatment NA groups, found it helpful. No psych providers, Currently doing [facility] groups in [place] through [facility] Substance Use History of substance use x [...] Longest period of Sobriety was two years, 9534-4766 Screening [place] Suicide Sev erity Rating Scale (LF) Do [...] Year?: Yes Was It Completed Today Using Smart[employer]?: No aT For Substance Use Services Who Is Your Primary Care Provider? Do You Have A Primary Care Provider?: Yes [facility] Date of last physical exam: Do You Have A Psychiatric Provider? Do You Have A Psychiatric Provider?: No est psych with [facility] Do You Have Any Other Professional Supports? Do You Have Any Other Professional Supports: Yes Consent Forms Completed Consent Forms: C onsent To Treat, Health Care Providers, Emergency Contact, Probation/[place] CSSRS Interpretation and Follow Up Plan CSSRS [...]
--- NOTE | 2024-09-01 11:29 | PC.NURSE ---
Pt. called x1 in [facility] for triage with no reply.
--- NOTE | 2024-09-01 12:00 | PC.NURSE ---
Pt. called for triage x2 with no reply in [facility].
--- OUTSIDE RECORDS SUMMARY | 2024-09-01 12:07 | XMS_ITS | Clinical Summary ---
Author Organization [facility] Address 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 This disclosure is being madepursuant to the Care Everywhere program and may not contain all information available regarding this patient. Last updated 18.[facility] Allergies Active Allergy Reactions Criticality Noted Date [...] age to complete this topic Care Teams Elementary School Librarian Relationship Specialty Start Date End Date Melquiades Hauser MD [address] [place] [address] PCP - General 01/01/16
--- OUTSIDE RECORDS SUMMARY | 2024-09-01 12:07 | XMS_ITS | Encounter Summary ---
Author Organization [facility] Address [address] [facility] [place] [address] Phone Care Team Providers Care Photo Intern Name Role Phone Zia Ordonez MD Primary Care Provider Encounter Details Date Type Department Care Team (Latest Contact Info) Description 06/20/2024 Transcribe [facility] Preop/Pacu II [address] [place] [address] Elsa Jeong, DPM [address] [place] [address] Pre-op testing (Primary Dx) Social History Tobacco Use Types Packs/Day Years Used Date Smoking Tobacco: Former Cigarettes Smokeless Tobacco: Former Alcohol Use Standard Drinks/Week Comments Yes 0 (1 standard drink = 0.6 oz pur e alcohol) Sexually Active Control Partners Comments Yes Female Sex and Gender Information Value Date Recorded Sex Assigned at Not on file Legal Sex Male 6:35 PM DIRECTOR OF EMPLOYEE DEVELOPMENT Gender Identity Not on file Sexual Orientation Not on file documented as of this encounter Plan of Treatment Not on file documented as of this encounter Results * (ABNORMAL) BASIC METABOLIC PANEL W/ CALCIUM TOTAL (06/25/2024 12:26 PM DIRECTOR OF EMPLOYEE DEVELOPMENT) SODIUM 138 136 - 145 mmol/L 06/25/2024 1:47 PM DIRECTOR OF EMPLOYEE DEVELOPMENT [facility] POTASSIUM 4.2 3.5 - 5.1 mmol/L 06/25/2024 1:47 PM [facility] CHLORIDE 106 98 - 107 mmol/L 06/25/2024 1:47 PM [facility] CO2, VENOUS 24 22 - 30 mmol/L 06/25/2024 1:47 PM [facility] ANION GAP 12.2 <18.0 mmol/L 06/25/2024 1:47 PM DIRECTOR OF EMPLOYEE DEVELOPMENT [facility] GLUCOSE 138(H) 70 - 99 mg/dL 06/25/2024 1:47 PM DIRECTOR OF EMPLOYEE DEVELOPMENT [facility] BUN 20 8 - 26 mg/dL 06/25/2024 1:47 PM [facility] CREATININE, BLOOD 1.08 0.70 - 1.30 mg/dL 06/25/2024 1:47 PM [facility] BUN/CREATININE RATIO 19 12 - 20 ratio 06/25/2024 1:47 PM [facility] CALCIUM 9.2 8.7 - 10.5 mg/dL 06/25/2024 1:47 PM [facility] IS THE PATIENT REQUIRED TO BE FASTING? No 06/25/2024 1:47 PM [facility] GFR, ESTIMATED >60 >=60 06/25/2024 1:47 PM [facility] Comment: Creatinine Clearance is the preferred criteria for selecting drug dose adjustments in renally impaired patients. The GFR is provided as additional pertinent clinical information. GFR is reported in mL/min/1.73 sq m. Calculation based on the Chronic Kidney Disease Epidemiology Collaboration (CKD- EPI) equation refit without adjustment for race. GFR, EST. >60 >=60 025 1:47 PM [facility] GFR, EST. NONAFRICAN >60 >=60 06/25/2024 1:47 PM [facility] Blood Venipuncture / Unknown 06/25/2024 12:26 PM DIRECTOR OF EMPLOYEE DEVELOPMENT 06/25/2024 12:57 PM DIRECTOR OF EMPLOYEE DEVELOPMENT Elsa D Jean-Paul DPM CHEMISTRY ORDERABLES Final R esult [facility] [address] [place] [address] documented in this encounter Visit Diagnoses Diagnosis Pre-op testing- Primary Preoperative examination, unspecified documented in this encounter Care Teams Photo Intern Relationship Specialty Start Date End Date Zia Ordonez MD PCP - General Obstetrics & Gynecology 06/16/24 documented as of this encounter
--- OUTSIDE RECORDS SUMMARY | 2024-09-01 12:07 | XMS_ITS | Encounter Summary ---
Author Organization [facility] Address [address] [place] [address] Phone Care Team Providers Care Washer Meat Name Role Phone Zia Ordonez MD Primary Care Provider Reason for Referral * Radiology Services (Routine) - Closed Specialty Diagnoses / Procedures Referred By Contac t Referred To Contact Radiology Diagnoses Pre-op testing Procedures EKG 12 LEAD Elsa Jeong DPM [address] [place] [address] Phone: tel: fax: Referral ID Status Reason Start Date Expiration Date Visits Re quested Visits Authorized [id number] Closed 06/20/2024 1 1 EDICAL ENGINEERING TECHNOLOGIST Encounter Details Date Type Department Care Team (Latest Contact Info) Description 06/20/2024 Transcribe Orders [facility] Preop/Pacu II [address] [place] [address] Elsa Jeong DPM [address] [place] [address] Pre-op testing (Primary Dx) Social History Tobacco Use Types Packs/Day Years Used Date Smoking Tobacco: Former Cigarettes Smokeless Tobacco: Former Alcohol Use Standard Drinks/Week Comments Yes 0 (1 standard drink = 0.6 oz pur e alcohol) Sexually Active Control Partners Comments Yes Female Sex and Gender Information Value Date Recorded Sex Assigned at Not on file Legal Sex Male 6:35 PM BIOMEDICAL ENGINEERING TECHNOLOGIST Gender Identity Not on file Sexual Orientation Not on file documented as of this encounter Plan of Treatment Not on file documented as of this encounter Results * EKG 12 LEAD (07/01/2024 12:36 PM BIOMEDICAL ENGINEERING TECHNOLOGIST) Ventricular Rate 84 BPM EXTERNAL EKG Atrial Rate 84 BPM EXTERNAL EKG P-R Interval 158 ms EXTERNAL EKG QRS Duration 158 ms EXTERNAL EKG Q-T Duration 416 ms EXTERNAL EKG QTC CALCULATION 491 ms EXTERNAL EKG P Weston 7 degrees EXTERNAL EKG R Weston -66 degrees EXTERNAL EKG T Weston 89 degrees EXTERNAL EKG 07/01/2024 12:3 6 PM BIOMEDICAL ENGINEERING TECHNOLOGIST Impressions EXTERNAL EKG - 07/01/2024 4:10 PM BIOMEDICAL ENGINEERING TECHNOLOGIST Atrial-sensed ventricular-paced rhythm Abnormal ECG When compared with ECG of 25-JUL-2023 15:27, Vent. rate has increased BY 15 BPM Confirmed by Mushtaq Zurita ([id number]) on 07/01/2024 4:10:11 PM Narrative Procedure Note Mushtaq Zurita MD - 07/01/2024 IMPRESSION: Atrial-sensed ventricular-paced rhythm Abnormal ECG When compared with ECG of 25-JUL-2023 15:27, Vent. rate has increased BY 15 BPM Confirmed by Mushtaq Zurita ([id number]) on 07/01/2024 4:10:11 PM us Elsa Jeong DPM IMG ECG ORDERABLES Final Res ult EXTERNAL EKG documented in this encounter Visit Diagnoses Diagnosis Pre-op testing- Primary Preoperative examination, unspecified Pre-op testing Preoperative examination, unspecified documented in this encounter Care Teams Washer Meat Relationship Specialty Start Date End Date Zia Ordonez MD PCP - General Obstetrics & Gynecology 06/16/24 documented as of this encounter
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
--- OUTSIDE RECORDS SUMMARY | 2024-09-01 12:07 | XMS_ITS | Clinical Summary ---
Author Organization [facility] Address [address] [place] [address] Phone Care Team Providers Care Campus Manager Name Role Phone Zia Ordonez MD Primary [...] naloxone HCl (Narcan) 4 MG/0.1ML Liquid 1 [place] by Nasal route as needed for Opioid [...] Department Care Team Description 07/24/2024 10:21 PM BOBBIN WASHER - 07/25/2024 1:39 AM BOBBIN WASHER Emergency [facility] Emergency [address] [place] [address] Juan Ramirez MD Positive D-dimer Discharge Disposition: Discharged to home or Selfcare 07/24/2024 Travel 07/01/2024 12:30 PM BOBBIN WASHER - 07/01/2024 11:59 PM BOBBIN WASHER Hospital Encounter [facility] Cardiology Services [address] [place] [address] Elsa Jeong DPM Discharge Disposition: Discharged to home or Selfcare 07/01/2024 Travel 06/25/2024 Travel 06/24/2024 Travel 06/20/[address] [facility] Preop/Pacu II [address] [place] [address] Elsa Jeong DPM Pre-op testing (Primary Dx) 06/20/2024 Transcribe Orders [facility] Preop/Pacu II [address] [place] [address] Elsa Jeong DPM Pre-op testing (Primary Dx) 06/16/2024 4:26 PM BOBBIN WASHER - 06/16/2024 6:07 PM BOBBIN WASHER Emergency [facility] Emergency 1 [facility] [place] [address] Lydia Bullock MD Cellulitis of great toe [...] on file Legal Sex Male 6:35 PM BOBBIN WASHER Gender Identity Not on file Sexual Orientation Not on file Last Filed Vital Signs Vital Sign Reading Time Taken Comments Blood Pressure 119/70 07/25/2024 1:32 AM BOBBIN WASHER Pulse 79 07/25/2024 1:32 AM BOBBIN WASHER Temperature 36.1 C (97 F) 07/24/2024 10:22 PM BOBBIN WASHER Respiratory Rate 18 07/25/2024 1:32 AM BOBBIN WASHER Oxygen Saturation 98% 07/25/2024 1:32 AM BOBBIN WASHER Inhaled Oxygen Concentration - - Weight 78 kg (172 lb) 07/24/2024 10:22 PM BOBBIN WASHER Height 167.6 cm (5' 6 ) 07/24/2024 10:22 PM BOBBIN WASHER Body Mass Index 27.76 07/24/2024 10:22 PM BOBBIN WASHER Plan of Treatment Health Maintenance Due Date [...] this topic Medical Devices Implanted Type Area Medart Operator Device Identifier Shelf Expiration Date Model / Serial / Lot [id number]-11/06/2020 Implanted:2020 (Quantity not on file) Procedures Procedure Name Priority Date/Time Associated Diagnosis Comments CBC WITH AUTO DIFFERENTIAL STAT 07/24/2024 11:19 PM BOBBIN WASHER D-DIMER STAT 07/24/2024 11:19 PM BOBBIN WASHER C-REACTIVE PROTEIN (CRP) QUANT STAT 07/24/2024 11:19 PM BOBBIN WASHER ERYTHROCYTE SEDIMENTATION RATE (ESR) STAT 07/24/2024 11:19 PM BOBBIN WASHER CMP (COMPREHENSIVE METABOLIC PANEL) STAT 07/24/2024 11:19 PM BOBBIN WASHER COMPLETE BLOOD COUNT (CBC) WITH DIFF STAT 07/24/2024 11:19 PM BOBBIN WASHER XR TIBIA & FIBULA RIGHT STAT 07/24/2024 11:17 PM BOBBIN WASHER EKG 12 LEAD Routine 07/01/2024 12:36 PM BOBBIN WASHER Pre-op testing BASIC METABOLIC PANEL W/ CALCIUM TOTAL Routine 06/25/2024 12:26 PM BOBBIN WASHER Pre-op testing XR TOE(S) MIN 2V RT STAT 06/16/2024 5:08 PM BOBBIN WASHER from Last 3 Months Results * CBC with Auto Differential (07/24/2024 11:19 PM [facility]) WBC 6.96 4.00 - 12.00 10(3)/mcL 07/25/2024 12:[address] [facility] RBC 4.65 4.40 - 5.80 10(6)/mcL 07/25/2024 12:[address] [facility] HEMOGLOBIN (HGB) 14.5 13.0 - 16.5 g/dL 07/25/2024 12:[address] [facility] HEMATOCRIT (HCT) 42.0 38.0 - 50.0 % 07/25/2024 12:[address] [facility] MCV 90.3 82.0 - 96.0 fL 07/25/2024 12:[address] [facility] MCH 31.2 26.0 - 32.0 pg 07/25/2024 12:[address] [facility] MCHC 34.5 31.0 - 36.0 g/dL 07/25/2024 12:[address] [facility] PLATELET COUNT 186 140 - 440 10(3)/[facility] 07/25/2024 12:[address] [facility] RDW 12.6 11.8 - 15.5 % 07/25/2024 12:[address] [facility] MPV 8.5 8.0 - 12.6 fL 07/25/2024 12:[address] [facility] NEUTROPHILS 60.7 40.0 - 68.0 % 07/25/2024 12:[address] [facility] LYMPHOCYTES 28.7 19.0 - 49.0 % 07/25/2024 12:[address] [facility] MONOCYTES 8.2 3.0 - 13.0 % 07/25/2024 12:[address] [facility] EOSINOPHILS 2.0 0.0 - 8.0 % 07/25/2024 12:[address] [facility] BASOPHILS 0.4 0.0 - 1.0 % 07/25/2024 12:11 AM BOBBIN WASHER [facility] ABSOLUTE NEUTROPHILS 4.22 1.40 - 5.30 10(3)/[facility] 07/25/2024 12:11 AM BOBBIN WASHER [facility] ABSOLUTE LYMPHOCYTES 2.00 0.90 - 3.30 10(3)/[facility] 07/25/2024 12:11 AM B[facility]BIN WASHER [facility] ABSOLUTE MONOCYTES 0.57 0.10 - 0.90 10(3)/[facility] 07/25/2024 12:11 AM BOBBIN WASHER [facility] ABSOLUTE EOSINOPHIL 0.14 0.00 - 0.50 10(3)/[facility] 07/25/2024 12:11 AM B[facility]BIN WASHER [facility] ABSOLUTE BASOPHILS 0.03 0.00 - 0.10 10(3)/[facility] 07/25/2024 12:11 AM BOBBIN WASHER [facility] NRBC PER 100 WBC 0 07/25/19 25 12:11 AM BOBBIN WASHER [facility] Blood Venipuncture / Unknown 07/24/2024 11:19 PM BOBBIN WASHER 07/25/2024 12:08 AM BOBBIN WASHER Juan Ramirez MD HEMATOLOGY ORDERABLES Fin al Result [facility] [address] [place] [address] * (ABNORMAL) Sed Rate (Esr) [id number] (07/24/2024 11:19 PM BOBBIN WASHER) ESR (SED RATE, ERYTHROCYTE SEDIMENTATION RATE) 23(H) <20 mm/h 07/25/2024 12:14 AM BOBBIN WASHER [facility] Comment: Patients presenting with increased level of fibrinogen, gamma globulins, or abnormally shaped RBCs could affect the results for the erythrocyte sedimentation rate (ESR). Results should be clinically correlated. Blood Venipuncture / Unknown 07/24/2024 11:19 PM BOBBIN WASHER 07/25/2024 12:08 AM BOBBIN WASHER Juan Ramirez MD HEMATOLOGY ORDERABLES Fin al Result Performing Organization Address [facility] Co de Phone Number [facility] [address] [place] [address] * (ABNORMAL) D-Dimer (07/24/2024 11:19 PM BOBBIN WASHER) [facility] D DIMER 0.80(H) <0.50 mcg/mL FEU 07/25/2024 12:25 AM BOBBIN WASHER [facility] Blood Venipuncture / Unknown 07/24/2024 11:19 PM BOBBIN WASHER 07/25/2024 12:08 AM BOBBIN WASHER Narrative [facility] - 07/25/2024 12:25 AM BOBBIN WASHER The FDA has approved this method to exclude the diagnosis of DVT and/or PE at the cutoff value of <0.50 mcg/mL FEU. Juan Ramirez MD HEMATOLOGY ORDERABLES Fin al Result Performing Organization Address [facility] de Phone Number [facility] [address] [place] [address] * (ABNORMAL) CMP (Comprehensive Metabolic Panel) (07/24/2024 11:19 PM BOBBIN WASHER) [facility] SODIUM 142 136 - 145 mmol/L 07/25/2024 12:33 AM [facility] POTASSIUM 3.6 3.5 - 5.1 mmol/L 07/25/2024 12:33 AM [facility] CHLORIDE 111(H) 98 - 107 mmol/L 07/25/2024 12:[address] [facility] CO2, VENOUS 20(L) 22 - 30 mmol/L 07/25/2024 12:[address] [facility] ANION GAP 14.6 <18.0 mmol/L 07/25/2024 12:[address] [facility] GLUCOSE 134(H) 70 - 99 mg/dL 07/25/2024 12:33 AM [facility] BUN 23 8 - 26 mg/dL 07/25/2024 12:[address] [facility] CREATININE, BLOOD 1.07 0.70 - 1.30 mg/dL 07/25/2024 12:[address] [facility] BUN/CREATININE RATIO 21(H) 12 - 20 ratio 07/25/2024 12:[address] [facility] TOTAL PROTEIN 6.6 6.0 - 8.0 g/dL 07/25/2024 12:[address] [facility] ALBUMIN 3.7 3.5 - 5.0 g/dL 07/25/2024 12:[address] [facility] A/G RATIO 1.3 1.0 - 2.2 07/25/2024 12:[address] [facility] CALCIUM 9.0 8.7 - 10.5 mg/dL 07/25/2024 12:[address] [facility] T BILI 0.4 0.2 - 1.2 mg/dL 07/25/2024 12:[address] [facility] SGOT (AST) 34 <43 U/L 07/25/2024 12:[address] [facility] SGPT (ALT) 44 <56 U/L 07/25/2024 12:[address] [facility] ALKALINE PHOSPHATASE 85 40 - 150 U/L 07/25/2024 12:[address] [facility] GFR, ESTIMATED >60 >=60 07/25/2024 12:[address] [facility] Comment: Creatinine Clearance is the preferred criteria for selecting drug dose adjustments in renally impaired patients. The GFR is provided as additional pertinent clinical information. GFR is reported in mL/min/1.73 sq m. Calculation based on the Chronic Kidney Disease Epidemiology Collaboration (CKD- EPI) equation refit without adjustment for race. GFR, EST. >60 >=60 025 12:[address] [facility] GFR, EST. NONAFRICAN >60 >=60 07/25/2024 12:[address] [facility] Blood Venipuncture / Unknown 07/24/2024 11:19 PM BOBBIN WASHER 07/25/2024 12:08 AM BOBBIN WASHER Juan Ramirez MD CHEMISTRY ORDERABLES Shira l Result Performing Organization Address [facility] Co de Phone Number [facility] [address] [place] [address] * C-Reactive Protein Qnt (Crp) (07/24/2024 11:19 PM BOBBIN WASHER) C-REACTIVE PROTEIN 0.47 <0.50 mg/dL 07/25/2024 12:33 AM BOBBIN WASHER [facility] Blood Venipuncture / Unknown 07/24/2024 11:19 PM BOBBIN WASHER 07/25/2024 12:08 AM BOBBIN WASHER Juan Ramirez MD CHEMISTRY ORDERABLES Shira l Result Performing Organization Address [facility] Co de Phone Number [facility] [address] [place] [address] * XR TIBIA & FIBULA RIGHT (07/24/2024 11:17 PM BOBBIN WASHER) Anatomical Region Laterality Modality LOWER EXTREMITY, leg Right Digital Rad iography 07/24/2024 11:3 6 PM BOBBIN WASHER Impressions 07/24/2024 11:38 PM BOBBIN WASHER IMPRESSION: No acute osseous abnormality. Narrative 07/24/2024 11:38 PM BOBBIN WASHER EXAM DESCRIPTION: XR TIBIA and FIBULA RIGHT [...] Ariella Hayward M.D. AT: AT Report ID: [id number] Reading Location: [id number] Procedure Note Ariella Hayward MD - 07/24/2024 [...] Ariella Hayward M.D. AT: AT Report ID: [id number] Reading Location: [id number] IMPRESSION: No acute osseous abnormality. Juan Ramirez MD IMG DIAGNOSTIC ORDERABLES Final Result * EKG 12 LEAD (07/01/2024 12:36 PM BOBBIN WASHER) Ventricular Rate 84 BPM EXTERNAL EKG Atrial Rate 84 BPM EXTERNAL EKG P-R Interval 158 ms EXTERNAL EKG QRS Duration 158 ms EXTERNAL EKG Q-T Duration 416 ms EXTERNAL EKG QTC CALCULATION 491 ms EXTERNAL EKG P [place] 7 degrees EXTERNAL EKG R [place] -66 degrees EXTERNAL EKG T [place] 89 degrees EXTERNAL EKG 07/01/2024 12:3 6 PM BOBBIN WASHER Impressions EXTERNAL EKG - 07/01/2024 4:10 PM BOBBIN WASHER Atrial-sensed ventricular-paced rhythm Abnormal ECG When compared with ECG of 25-JUL-2023 15:27, Vent. rate has increased BY 15 BPM Confirmed by Mushatq Zurita ([id number]) on 07/01/2024 4:10:11 PM Narrative Procedure Note Mushatq Zurita MD - 07/01/2024 IMPRESSION: Atrial-sensed ventricular-paced rhythm Abnormal ECG When compared with ECG of 25-JUL-2023 15:27, Vent. rate has increased BY 15 BPM Confirmed by Mushtaq Zurita ([id number]) on 07/01/2024 4:10:11 PM us Elsa Jeong DPM IMG ECG ORDERABLES Final Res ult EXTERNAL EKG * (ABNORMAL) BASIC METABOLIC PANEL W/ CALCIUM TOTAL (06/25/2024 12:26 PM BOBBIN WASHER) SODIUM 138 136 - 145 mmol/L 06/25/2024 1:47 PM BOBBIN WASHER [facility] POTASSIUM 4.2 3.5 - 5.1 mmol/L 06/25/2024 1:[address] [facility] CHLORIDE 106 98 - 107 mmol/L 06/25/2024 1:[address] [facility] CO2, VENOUS 24 22 - 30 mmol/L 06/25/2024 1:[address] [facility] ANION GAP 12.2 <18.0 mmol/L 06/25/2024 1:[address] [facility] GLUCOSE 138(H) 70 - 99 mg/dL 06/25/2024 1:[address] [facility] BUN 20 8 - 26 mg/dL 06/25/2024 1:[address] [facility] CREATININE, BLOOD 1.08 0.70 - 1.30 mg/dL 06/25/2024 1:[address] [facility] BUN/CREATININE RATIO 19 12 - 20 ratio 06/25/2024 1:[address] [facility] CALCIUM 9.2 8.7 - 10.5 mg/dL 06/25/2024 1:[address] [facility] IS THE PATIENT REQUIRED TO BE FASTING? No 06/25/2024 1:[address] [facility] GFR, ESTIMATED >60 >=60 06/25/2024 1:[address] [facility] Comment: Creatinine Clearance is the preferred criteria for selecting drug dose adjustments in renally impaired patients. The GFR is provided as additional pertinent clinical information. GFR is reported in mL/min/1.73 sq m. Calculation based on the Chronic Kidney Disease Epidemiology Collaboration (CKD- EPI) equation refit without adjustment for race. GFR, EST. >60 >=60 025 1:47 PM BOBBIN WASHER [facility] GFR, EST. NONAFRICAN >60 >=60 06/25/2024 1:47 PM BOBBIN WASHER [facility] Blood Venipuncture / Unknown 06/25/2024 12:26 PM BOBBIN WASHER 06/25/2024 12:57 PM BOBBIN WASHER us Elsa Jeong DPM CHEMISTRY ORDERABLES Final R esult [facility] [address] [place] [address] * XR TOE(S) MIN?? 2V RT (06/16/2024 5:08 PM BOBBIN WASHER) Anatomical Region Laterality Modality LOWER EXTREMITY, Toes N/A Digital Ra diography 06/16/2024 5:48 PM BOBBIN WASHER Impressions 06/16/2024 5:50 PM BOBBIN WASHER Findings/impression: Mild degenerative changes are noted particularly of the great toe. Lesser degenerative changes are seen of the base of the 2nd toe. No clear evidence of acute fracture or dislocation is identified. Likely chronic defect of the proximal 5th metatarsal is incidentally noted. Soft tissues appear unremarkable. Narrative 06/16/2024 5:50 PM BOBBIN WASHER EXAM DESCRIPTION: XR TOE(S) MIN 2V RT REASON FOR STUDY: toe pain TECHNIQUE: 4 radiographic view(s) of the left toes . COMPARISON: None THIS IS AN ELECTRONICALLY VERIFIED FINAL REPORT 06/16/2024 5:48 PM - Electronically signed by Joselito Rudolph M.D. KH: [email or web address] Report ID: [id number] Reading Location: [place] [address] Procedure Note Joselito Rudolph MD - 06/16/2024 EXAM DESCRIPTION: XR TOE(S) MIN 2V RT REASON FOR STUDY: toe pain TECHNIQUE: 4 radiographic view(s) of the left toes . COMPARISON: None THIS IS AN ELECTRONICALLY VERIFIED FINAL REPORT 06/16/2024 5:48 PM - Electronically signed by Joselito Rudolph M.D. KH: VARGHESE Report ID: [id number] Reading Location: [place] [address] Findings/impression: Mild degenerative changes are noted particularly [...] Months Insurance MEDICAID [employer] [facility] Before [facility] Advance Directives * Full Code (Latest Code Status on File) Date Activated Date Inactivated Comments 10/06/2022 7:37 PM 10/09/2022 2:45 PM CPR-Full Sivakumar atment: FULL ARREST: Attempt Resuscitation/CPR wit intubation and mechanical ventilation. PRE-ARREST: Use entire range of life support measures to stabilize the patient. Care Teams Campus Manager Relationship Specialty Start Date End Date Zia Ordonez MD PCP - General Obstetrics & Gynecology 06/16/24
--- OUTSIDE RECORDS SUMMARY | 2024-09-01 12:08 | XMS_ITS | CONTINUITY OF CARE DOCUMENT ---
Author Name aixa kruse Address Unknown Organization [facility] Address [address] [address] [place] [address] Phone [phone] Care Team Providers Care Coal Sampler Name Role Phone Ledy NOEL, David Unavailable ESTHELA NOEL, KAITLIN Unavailable [phone] ESTHELA NOEL, KAITLIN Unavailable [phone] PROBLEMS Condition Status Date Provider Notes S/P [...] In-person encounter Office Visit David Villafana MD [facility] Cardiology examinationFoot painDiabetes mellitus, type 2 - In-person encounter Office Visit David Villafana MD [facility] - In-person encounter Office Visit David Villafana MD [facility] - In-person encounter Office Visit David Villafana MD [facility] - In-person encounter Office Visit David Villafana MD [facility] - In-person encounter Office Visit David Villafana MD [facility] Daytime hypersomnia - In-person encounter Office Visit David Villafana MD [facility] - In-person encounter Office Visit David Villafana MD [facility] - In-person encounter Office Visit David Villafana MD [facility] Defibrillator - In-person encounter Office Visit David Villafana MD, [facility] Chest pain-type to be determinedAbdominal painScreening, diabetes mellitusHypertensionSystolic CHF - In-person encounter Office Visit David Villafana MD [facility] - In-person encounter Office Visit [facility] - In-person encounter Office Visit David Villafana MD [facility] Dilated Cardiomyopathy, nonischemic EF 15% - In-person encounter Office Visit David Villafana MD [facility] - In-person encounter Office Visit David Villafana MD [facility] - In-person encounter Office Visit David Villafana MD [facility] - In-person encounter Office Visit Sundeep Cason MD [facility] Dilated Cardiomyopathy, nonischemic EF 15%Tobacco abuseLV systolic dysfunction - In-person encounter Office Visit Norman Miller MD [facility] G E R DArthritis - osteoAbnormal electrocardiogramDrug abuse- methLBBB VITAL SIGNS Date Observation Value Provider Body Mass Index (Ratio) 28.24 kg/m2 Henrry Glaser blood pressure, diastolic 75 mm[Hg] [facility], systolic 109 mm[Hg] Karime [facility] oxygen saturation, oximetry 97 % [facility] pulse rate 79 /min [facility] respiratory rate E&M 12 /min [facility] weight E&M 175 [lb_av] [facility] height E&M 66 [in_i] [facility] blood pressure, cuff size regular An [facility] Body Mass Index (Ratio) 26.47 kg/m2 Rosales [...] Mass Index (Ratio) 26.47 kg/m2 Rosales al [place]lin blood pressure, cuff size regular Ke rri [...] Aimee kLog pulse rate 77 /min Ирина Lowell blood pressure, cuff size regular Fa [facility] blood pressure, diastolic 86 mm[Hg] Fa [facility] blood pressure, systolic 130 mm[Hg] Joel [facility] oxygen saturation, oximetry 99 % Ирина Lowell respiratory rate E&M 16 /min Ирина Philip iller height E&M 66 [in_i] Ирина Lowell Body Mass Index (Ratio) 28.57 kg/m2 Henrry [...] blood pressure, systolic 125 mm[Hg] Vivek maureen [place] blood pressure, diastolic 68 mm[Hg] St [facility]land [place] respiratory rate E&M 16 /min Momo ie [place] pulse rate 92 /min Deborah Lohma n weight E&M 200 [lb_av] [facility], oximetry 96 % Deborah [place] blood pressure, cuff size large St andree [place] height E&M 66 [in_i] Deborah Lohma n [...] trinityenenfelder pulse rate 70 /min Rosa Gruenenfe [facility] height E&M 66 [in_i] Rosa Gruenenfe er [...] [degF] Tamica Vaughan weight E&M 215 [lb_av] Taimca Vaughan height E&M 66 [in_i] Tamica Vaughan Body Mass Index (Ratio) 26.31 kg/m2 Gaetano Villafana MD blood pressure, cuff size regular Ke rri [facility] hospital[facility] blood pressure, diastolic 60 mm[Hg] Ke rri Robbuenenfmayo memorial hospitaler blood pressure, systolic 102 mm[Hg] Tony ri Maynor oxygen saturation, oximetry 96 % Rosa Maynor respiratory rate E&M 16 /min Rosa Karol mo pulse rate 79 /min Rosa Lita [facility] [place] weight E&M 163 [lb_av] Rosa Estebane [facility] height E&M 66 [in_i] Rosa Lita [facility] Body Mass Index (Ratio) 24.85 kg/m2 Fco [...] LinkLogic 0-149 cholesterol, serum 172 mg/dL [employer] [phone]/05/ 23 alanine aminotransferase (SGPT), serum 31 1/L [...] LinkLogic 3.5-5.2 sodium, serum 141 mmol/L [employer] [phone]/05/ 23 urea nitrogen/creatinine ratio, serum 20 LinkLogic [...] Not Estab. platelet count 215 X10E3/UL [employer] [phone]/05/ 23 red blood cell distribution width 12.2 [...] LinkLogic 0-149 cholesterol, serum 167 mg/dL [employer] [phone]/07/ 24 calcium, serum 9.5 mg/dL [employer] 8.7-10.2 carbon dioxide, venous blood 22 mmol/L [employer] 20-29 chloride, serum 102 mmol/L [employer] 96-106 potassium, serum 4.8 mmol/L [employer] 3.5-5.2 sodium, serum 142 mmol/L [employer] [phone]/07/ 24 urea nitrogen/creatinine ratio, serum 24 LinkLogic [...] TABLET BY MOUTH ONCE DAILY [facility] levofloxacin 500 mg tablet active Take 1 [...] 1 TABLET BY MOUTH TWICE A DAY [facility] Jardiance 10 mg tablet active TAKE 1 TABLET BY MOUTH EVERY DAY [facility] Dist[facility] furosemide 20 mg tablet completed TAKE 1 TABLET BY MOUTH EVERY DAY - [facility] Entresto 24-26 mg tablet active TAKE ONE (1) TABLET BY MOUTH TWICE DAILY Anthony Irvint Jardiance 10 mg tablet completed TAKE 1 TABLET BY MOUTH ONCE DAILY - [facility] carvedilol 12.5 mg tablet completed TAKE ONE (1) TABLET BY MOUTH TWICE DAILY - [facility] spironolactone 25 mg tablet active TAKE 1/2 [...] BY MOUTH ONCE A DAY - [facility] mg tablet completed Take 1 tablet by mouth at bedtime - [facility] simvastatin 40 mg tablet completed TAKE 1 TABLET BY MOUTH EVERY NIGHT AT BEDTIME - Rosa Mcguire Coreg 12.5 mg tablet completed TAKE 1 TABLET BY MOUTH TWICE DAILY - Rosa Mcguire Entresto 24-26 mg tablet completed Take 1 tablet by mouth twice a day - [facility] spironolactone 25 mg tablet completed Take 0.5 tablet by mouth once a day - [facility] Entresto 24-26 mg tablet completed 1 tablet [...] Willard NP cigarette use yes Nancy ham COAL SAMPLER smoking status Current every day smoker Torie katizhen Montse COAL SAMPLER smoking, year quit 2019 Deborah Rosa smoking history, tot al pack/day 2 Deborah Rosa cigarette use yes Deborah cowan smoking status Former smoker Deborah conklin social history E&M 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 Henrry Glaser social history reviewed E&M revi ewed - no changes required Hnerry Metcalfzasimi smoking, 2019 Rosa Kaye demetrioer smoking [...] type Candido red alliance party ID [employer] [facility] Medicaid [id number] ADVANCE DIRECTIVES Name Date DISCUSSED - NO DECISION MADE TREATMENT PLAN Date Name Performer [id number],B, H is updated medication list for this [...] by mouth twice daily David Villafana MD [id number],C,L VEF 20 % today O rders: 9 9215 HIGH 40-54min (CPT-89560) E KG (CPT-49663) S chedule Followup (*) C omplete Echo (93135) David Villafana MD [id number],C,p t reports that he has been making 'some destructive life choices'. he states that he is going into detox on Monday. He doesn't have any real CV issues or concerns. he denies any CP, SOB, dizziness, palpitations. encouraged pt to complete detox as planned. emphasis placed on the importance of continuing his cardiac meds. Nancy Willard NP [id number],C,denies any fu rther use Nancy Willard NP [id number],C,o besity, snoring, excessive daytime sleepiness. will check home sleep study Nancy Willard NP [id number],C,see above Maddie Willard NP [id number],C, B P today: 125/68 P rior BP: [...] by mouth once a day Nancy Willard COAL SAMPLER [id number],C,see above #3 Nancy Willard NP [id number],C,E CHO 04/01/22 C ONCLUSIONS: 1 . Abnormal [...] systolic pressure is 24.0 mmHg. Nancy Willard COAL SAMPLER [id number],C,see above Maddie Willard COAL SAMPLER [id number],C, H is updated medication list for this problem includes: Entresto 24-26 Mg Oral Tablet (Sacubitril-valsartan) ..... One tab twice daily. stop losartan. Coreg 12.5 Mg Oral Tablet (Carvedilol) ..... One tab. twice daily Spironolactone 25 Mg Oral Tablet (Spironolactone) ..... Half a tablet a day Furosemide 20mg Tablets (Furosemide) ..... Take 1 tablet by mouth every day Henrry Glaser [id number],S, Henrry Cheung i [id number],C,B P is elevated but he states it normally controlled. BP today: 147/132 P rior BP: 158/100 (10/08/2020) Labs Reviewed: C reat: 1.24 (10/19/2019) C hol: 172 (10/19/2019) HDL: 67 (10/19/2019) Henrry Cheungi [id number],C, P rior BP: 158/100 (10/08/2020) Labs Reviewed: C reat: 1.24 (10/19/2019) C hol: 172 (10/19/2019) HDL: 67 (10/19/2019) [facility] [id number],C,Will recheck echo. [facility] [id number],C, S table. On Coreg, Losartan, Aldactone. [facility]ry [facility] [id number],C, O rders: Karol johnson No Charge (CPT-25300) David Villafana MD [id number],C, H is updated medication list for this problem includes: Coreg 12.5 Mg Oral Tablet (Carvedilol) ..... One tab. twice daily David Villafana MD [id number],S, David frank MD [id number],S, David frank MD Electrophysiology:Th is visit has [...] Electrophysiology:Echo was done today showing EF 20% [facility] Elect[facility]:Echo done toda y shows EF 20% [facility] Electrophysiology:Th is visit has been a [...] 500 mg once daily for 10 days [facility] Elect[facility]: T he Patient was reencouraged to stop smoking. [facility] Elect[facility]iology:Suni navarro, given his foot pain and [...] O rders: P reop clearance, phn/internet/emr >5min (67418) David Villafana MD Surgery Clearance - see note: E xtensive review of the pertinent previous and curent labs , EKGs, cardiac tesing and imaging data was done by Dr. Ledy moscoso additional testing is needed cher martell fax clearance for procedure Attn: Ms. Hamm , Phone #[phone]. H is updated medication list for this [...] Nelson Electrophysiology:EF 20 on last echo Edu Kawkawlin Electrophysiology:ad ding SGLT-2 inhibitor H is updated [...] today O rders: 9 9215 HIGH 40-54min (CPT-17164) E KG (CPT-17719) S chedule Followup (*) C omplete Echo (03270) David Villafana MD Electrophysiology:pt reports that he [...] Electrophysiology: O rders: Karol johnson No Charge (CPT-24923) David Villafana MD Electrophysiology: H is updated [...] placement after pt is out of the nursing home. O rders: E KG (CPT-64101) C XR- PA/Lat (CPT-96037) C omplete Echo (CPT-54458) 9 9215 HIGH 40-54min (CPT-84091) David Villafana MD needs to stop losart an and start entresto 24/26 mg PO bid:Stable. On Coreg, Losartan, Aldactone. O rders: 9 9215 HIGH 40-54min (CPT-48951) His updated medication list for this problem [...] least a month due to being in care home [facility] . O rders: 9 9215 HIGH Complex (CPT-74985) David Villafana MD Electrophysiology Fo llow up [...] lead placement. Orders: 9 9215 HIGH Complex (CPT-21801) David Villafana MD TeleHealth: H is updated [...] has been given to the patient. [email or web address] [email or web address] Pt has been wearing life vest. severe [...] po bid to 6.25 mg po bid [facility] Cardiology:The patie nt is recommended to have ICD implanted. The risks and benefits have been discussed with the patient in this shared decision making encounter. A copy of the following evidence based decision tool on ICD has been given to the patient. [email or web address]-[email or web address] 11/[email or web address] Pt has been wearing life vest. severe dyssynchrony, mildly prolonged QRS of more than 162ms. [facility] Cardiology: H is updated medication list for this problem includes: Coreg 6.25 Mg Oral Tablet (Carvedilol) ..... One tab. twice daily- stop betoprolol , and double the dose of coreg from 3.125 mg po bid to 6.25 mg po bid [facility] Cardiology: H is updated medication list for this problem includes: Coreg 6.25 Mg Oral Tablet (Carvedilol) ..... One tab. twice daily- stop betoprolol , and double the dose of coreg from 3.125 mg po bid to 6.25 mg po bid [facility] Cardiology [facility] Electrophysiology fo llow up : H is updated medication list for this problem includes: Metoprolol Succinate Er 25 Mg Oral Tablet Extended Release 24 Hour (Metoprolol succinate) ..... One tab daily [facility] Electrophysiology fo llow up : H is updated medication list for this problem includes: Metoprolol Succinate Er 25 Mg Oral Tablet Extended Release 24 Hour (Metoprolol succinate) ..... One tab daily Orders: E KG (CPT-99700) [facility] Electrophysiology fo llow up :Conclusions: 1 [...] peterson Florencio Electrophysiology follow up Fco peterson Flroencio Electrophysiology follow up Foc peterson Florencio Electrophysiology fo llow up :Would [...] follow up- faxed per pt request to [phone]:Will order ProBNP, CMP, and recheck echo. Currently [...] follow up- faxed per pt request to [phone]:Reports continued drug abuse. Artur Melara EP follow up- faxed per pt request to [phone]:Will order ProBNP, CMP, and recheck echo Echo [...] follow up- faxed per pt request to [phone]:Per 12/13/2018 echo: Septal `bounce` consistent with bundle [...] EKG during evaluation for abdominal pain at [facility] chris Miller MD Cardiology: initial evaluation due to an abnormal EKG during evaluation for abdominal pain at [facility] Norman Miller MD Date Name Aorta Duplex [...]
== END 2024-09-01 12:17 | disposition left against medical advice (07) ==
LOC: ANHED 12:05
DX: Z53.21 Procedure and treatment not carried out due to patient leaving prior to being seen by health care provider (principal)
CPT/HCPCS: 99199